=== PATIENT | female | born 1945 | race Caucasian/White ===

== ENCOUNTER → 2016-07-24 | Outpatient (CLI) | payer OTHER ==
[~2016-07-24] MED LIST: ALLERGY10 M2 PO; AMBIEN 10 MG TA10 MG PO; AMLODIPINE BESYL5 MG PO; ANASPAZ0.125 MG SL; ARAVA20 MG PO; ASPIRIN EC325 M1 PO; B-COMPLEX-VITA1 EACH PO; BEE POLLEN580 MG PO; CALCIUM + VITA1 EAC1 PO; CARAFATE 1 GM TA1 GM PO; CARISOPRODOL 3350 MG PO; CIPRO500 MG PO; CLONAZEPAM 0.50.5 M1 PO; DILTIAZEM 24HR240 M1 PO; EFFIENT10 MG PO; FLAGYL500 MG PO; FLAX OIL1000 MG PO; FOLIC ACID1 MG PO; GEMFIBROZIL 60600 MG PO; ICAPS TABLET1 EACH PO; LEVOTHYROXIN0.075 MG PO; LIALDA1.2 GM; LIPITOR80 MG PO; LOPRESSOR 50 MG50 M1 PO; LOVAZA1000 MG PO; MAXZIDE-25 MG1 EACH PO; METHOTREXATE 22.5 M1 PO; NEURONTIN600 MG PO; NEXIUM40 MG PO; NORCO 5-325 TA1 EACH PO; NORVASC 5 MG TAB5 MG PO; OMEPRAZOLE40 MG PO; ONDANSETRON HCL4 M2 PO; PACERONE 200 M200 M1 PO; PERCOCET 5-3251 EACH PO; PERCOCET PO; PREDNISONE 20 M20 M1 PO; PROAIR HFA8.5 GM INH; QUINAPRIL 20 MG20 MG PO; REGLAN 10 MG TA10 M1 PO; TIZANIDINE HCL4 M1 PO; VITAMIN D1000 UNI1 PO; VITCB500GO PO; XARELTO10 M1 PO; XARELTO20 MG PO; ZANTAC 150MG T150 M1 PO; ZETIA10 MG PO; ZOFRAN ODT4 MG PO; ZOLOFT50 MG PO
== END ==
LOC: MRI 09:19
DX: I00 Rheumatic fever without heart involvement (principal); M54.5 Low back pain; M43.8X6 Other specified deforming dorsopathies, lumbar region

== ENCOUNTER → 2016-07-27 | Outpatient (CLI) | payer OTHER | LOC: RAD 16:28 | DX: M85.872 Other specified disorders of bone density and structure, left ankle and foot (principal); M85.871 Other specified disorders of bone density and structure, right ankle and foot; M25.572 Pain in left ankle and joints of left foot; M25.571 Pain in right ankle and joints of right foot ==

== ENCOUNTER → 2016-07-31 | Outpatient (CLI) | payer OTHER ==
[~2016-07-31] VITALS: Ht 162.6 cm; Wt 67.1 kg
--- NOTE | ~2016-07-31 | HPC ---
[facility] [address] [place] [address] PAIN MANAGEMENT CONSULTATION Name: PETER PICKETT [id number] Admission: 07/31/16 Attend Phys: Jose Borrego DO Discharge: Date of : 43 Report #: [id number] THIS REPORT FOR: //name// CC: Young Borrego The patient is a 71-year-old female seen in consultation at request of Dr. Bolton for evaluation of pain, low back, right buttock and ankle. The patient notes subjective weakness, but no specific bowel or bladder incontinence changes or saddle anesthesia is noted. She does incidentally notes she has some stool leakage, which has been going for over 6 months, but notes no saddle anesthesia. She has tried chiropractic manipulation with minimal efficacy. She notes the pain seems to be worse with weather changes and walking. She describes continuous, shooting pain that she rates at 9 on a 0-10 visual analog scale. Incidentally, she is wearing a walking boot secondary to a right toe fracture. REVIEW OF SYSTEMS: Complete review of systems attached to chart and gone over with the patient. She is , does not smoke or drink alcohol to excess. History of asthma for which she uses ProAir, hypertension treated with amlodipine, atrial fibrillation on Xarelto and quinapril, omeprazole for gastroesophageal reflux, Zoloft for some chronic anxiety, gemfibrozil for dyslipidemia. Being treated for rheumatoid arthritis by Dr. Bolton, currently on methotrexate, tizanidine, Percocet for pain, leflunomide, Soma and clonazepam. 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 She notes pain impact score is about 5-6 on a 0-10 visual analog scale. PHYSICAL EXAMINATION: GENERAL: Reveals a 5 feet 4 inches, 148 pounds female, BMI is 25.4 kilograms per meter squared. Blood pressure 157/80, pulse 60, respirations are 20. NEUROLOGIC: Cranial 2-12 are grossly intact. HEENT: Pupils equal, reactive to light and accommodation. Extraocular muscles are intact. NECK: Cervical range of motion is full. HEART: Regular and rhythmical at this time though she does have a history of atrial fibrillation, I can detect no dysrhythmia. She does have a slight systolic ejection murmur (1-2/6) . LUNGS: Clear to auscultation. MUSCULOSKELETAL: Upper extremity strength is generally symmetric. She has a moderately antalgic gait, again she is wearing a walking boot secondary to right foot fracture. Tender in the low back with the SI area. Positive straight leg raise at 30 degrees on the right. Patellar and Achilles reflexes are generally preserved, slight decreased right hip flexion strength. Passive rotation of hip is unremarkable. A little positive Jean Pierre test, right greater than left. DIAGNOSTIC STUDIES: Include MRI of the lumbar spine from 07/24/2016 noting slight mir convex curvature with the disk bulging seen at L3-L4 through L5-S1, biggest narrowing at L3-L4. ASSESSMENT: Symptomatic lumbar radiculopathy with component of sacroiliac joint [address] [address] PAIN MANAGEMENT CONSULTATION Name: PETER PICKETT Room #: REG CL Diane#: [id number] Admission: 07/31/16 Attend Phys: Jose Borrego DO Discharge: Date of : 43 Report #: [id number] dysfunction in a patient with history of atrial fibrillation, currently anticoagulated with Xarelto. RECOMMENDATIONS: Discussion with the patient today about therapeutic option. We have elected to move forward with lumbar epidural injection under fluoroscopy off Xarelto for 3 days (will plan on seeing the patient this Wednesday. If this does not afford adequate relief we can address the SI mediated pain component as well. Thanks for allowing me to participate in the patient's care. I will keep you abreast of her progress. <ELECTRONICALLY SIGNED> By: Jose Borrego DO 08/03/16 1228 1610 0300 Jose Borrego DO /nt
[2016-07-31 10:21] VITALS: BP 157/80
== END | disposition home or self-care (01) ==
LOC: PAIN 06:53
DX: M54.16 Radiculopathy, lumbar region (principal); M53.3 Sacrococcygeal disorders, not elsewhere classified; I48.91 Unspecified atrial fibrillation; J45.909 Unspecified asthma, uncomplicated; I10 Essential (primary) hypertension; K21.9 Gastro-esophageal reflux disease without esophagitis; F41.9 Anxiety disorder, unspecified; E78.5 Hyperlipidemia, unspecified; M06.9 Rheumatoid arthritis, unspecified

== ENCOUNTER → 2016-08-03 | Outpatient (CLI) | payer OTHER ==
[~2016-08-03] VITALS: Ht 162.6 cm; Wt 74.4 kg
--- NOTE | ~2016-08-03 | HPC ---
[facility] [place] [address] PAIN MANAGEMENT CONSULTATION Name: PETER PICKETT Room #: REG [facility] [id number] Admission: 08/03/16 Attend Phys: Jose Borrego DO Discharge: Date of : 43 Report #: [id number] THIS REPORT FOR: //name// CC: Young Borrego The patient is a pleasant 71-year-old female, seen on 07/31/2016 in consultation, diagnosed with symptomatic lumbar radiculopathy. Comorbidities include atrial fibrillation for which she takes Xarelto. We elected to proceed with epidural injection under fluoroscopy today, 3 days off Xarelto. She returns to pain clinic today pain remains problematic in low back, buttock, and down her leg. Pain score and vital signs are on the EMR. The patient has been off her Xarelto for 3 days. ASSESSMENT: Symptomatic lumbar radiculopathy. PROCEDURE: Lumbar epidural injection under fluoroscopy. DESCRIPTION OF PROCEDURE: After both written and informed consent to include risk of spinal cord damage, increased pain, weakness and dural puncture, the patient was taken to the fluoroscopy suite, placed in the prone position. After sterile prep and drape, a skin wheal with lidocaine was raised. A 22-gauge epidural Tuohy needle was inserted in the midline at L4-L5 with good loss to resistance. Negative aspiration for cerebrospinal fluid or blood was noted. Then 1 mL of Omnipaque under biplanar fluoroscopy showed good spread within the epidural space. This was followed with 80 mg of triamcinolone plus 1 mL of 1.5% preservative-free Xylocaine, 0.5 mL Xylocaine was then injected to flush the needle; it was removed. The patient was monitored for an appropriate period of time and discharged in good and stable condition. The patient was told to resume Xarelto tonight and follow up in 3 weeks for reevaluation. If at day #18, she notes incremental improvement greater than 50%, but still has ongoing radicular symptoms, we will have her discontinue Xarelto and plan on repeating injection at next visit. <ELECTRONICALLY SIGNED> By: Jose Borrego DO 08/07/16 0811 1217 04 Jose Borrego DO /nt
[2016-08-03 11:33] VITALS: BP 174/62
== END | disposition home or self-care (01) ==
LOC: PAIN 07:05
DX: M54.16 Radiculopathy, lumbar region (principal); I48.91 Unspecified atrial fibrillation

== ENCOUNTER → 2016-09-14 | Outpatient (CLI) | payer OTHER ==
[~2016-09-14] VITALS: Ht 162.6 cm; Wt 74.5 kg
--- NOTE | ~2016-09-14 | HPC ---
[facility] [place] [address] PAIN MANAGEMENT CONSULTATION Name: PETER PICKETT [facility] #: [facility] [id number] Admission: 09/14/16 Attend Phys: Jose Borrego DO Discharge: Date of : 43 Report #: [id number] THIS REPORT FOR: //name// CC: Young Borrego The patient is a very pleasant 71-year-old female last seen in pain clinic 08/24/2015. We did #2 epidural injection for ongoing lumbar radicular pain. She is off her Xarelto today noting about 80% improvement of her back pain, still has a little right lumbar radicular pain within L5 pattern. After discussion, we have elected to proceed with epidural injection under fluoroscopy today, resume Xarelto tonight and follow up simply as needed. ASSESSMENT: Symptomatic lumbar radiculopathy. PROCEDURE: Lumbar epidural injection under fluoroscopy. PROCEDURE NOTE: After both written and informed consent to include risk of spinal cord damage, increased pain, weakness and dural puncture, the patient was taken to the fluoroscopy suite, placed in the prone position. After sterile prep and drape, a skin wheal with lidocaine was raised. A 22-gauge epidural Tuohy needle was inserted in the midline at L5-S1 with good loss to resistance. Negative aspiration for cerebrospinal fluid or blood was noted. Then 1 mL of Omnipaque under biplanar fluoroscopy showed good spread within the epidural space. This was followed with 80 mg of triamcinolone plus 1 mL of 1.5% preservative-free Xylocaine, 0.5 mL Xylocaine was then injected to flush the needle; it was removed. The patient was monitored for an appropriate period of time and discharged in good and stable condition. <ELECTRONICALLY SIGNED> By: Jose Borrego DO 09/16/16 0802 1221 1245 Jose Borrego DO /nt
[2016-09-14 10:58] VITALS: BP 154/66
== END ==
LOC: PAIN 07:00
DX: M54.16 Radiculopathy, lumbar region (principal); I10 Essential (primary) hypertension; M06.9 Rheumatoid arthritis, unspecified; S82.402A Unspecified fracture of shaft of left fibula, initial encounter for closed fracture

== ENCOUNTER → 2016-10-05 | Outpatient (CLI) | payer OTHER ==
[~2016-10-05] VITALS: Ht 162.6 cm; Wt 74.8 kg
--- NOTE | ~2016-10-05 | HPC ---
[facility] [address] [place] [address] PAIN MANAGEMENT CONSULTATION Name: PETER PICKETT Room #: REG [facility].#: [id number] Admission: 10/05/16 Attend Phys: Jose Borrego DO Discharge: Date of : 43 Report #: [id number] THIS REPORT FOR: //name// CC: Young Borrego The patient is a 71-year-old female treated for symptomatic lumbar radiculopathy, she has had 3 epidural injections August 03, August 24 and September 14 with significant improvement of lumbar radicular pain. She notes near 100% overall improvement, but she is having some increasing pain in the right low back. Does note a family history of osteoporosis. We talked about concern for using further steroid injections. She notes ongoing relief of the radicular pain, but this more mid back and right SI pain remains more problematic. She states the pain is 2/10 at present, but it is intermittent, sharp exacerbations of the pain are up to 8-9 on a 0-10 visual analog scale. Seems to recur "spontaneously." She incidentally also notes she is having some exacerbation of her chronic vertigo. She did fall this morning secondary to same. PHYSICAL EXAMINATION: Shows 71-year-old female, BMI is 28.3 kilograms per meter squared. Vital signs stable as noted in the EMR. Rises from chair using armrest. Does have some ataxia, loses balance with her eyes closed, though there is no lateral gaze nystagmus. Tender in the right SI with positive Jean Pierre test, tender little bit in the right lumbar facets as well. ASSESSMENT: Symptomatic right sacroiliac joint dysfunction by clinical exam, component of lumbar spondylosis in a patient with prior history of lumbar radiculopathy, the latter symptoms relatively well controlled, ongoing. History of vertigo, chronic with acute exacerbation. RECOMMENDATION: After a long discussion with the patient today, we have elected to move forward with a referral to physical therapy for core strengthening exercises to include SI stabilization. Also, will ask physical therapy to evaluate for Palma maneuver to help with vertigo. I will see the patient back in 4 weeks for reevaluation. We may consider SI joint injection if clinically indicated, but would like to avoid exposing further steroid for as long as possible. By: [id number] Jose Borrego DO /nt
[2016-10-05 12:44] VITALS: BP 152/75
== END ==
LOC: PAIN 06:36
DX: M47.26 Other spondylosis with radiculopathy, lumbar region (principal); Z82.62 Family history of osteoporosis; M53.3 Sacrococcygeal disorders, not elsewhere classified; I10 Essential (primary) hypertension

== ENCOUNTER → 2016-12-21 | Outpatient (CLI) | payer OTHER ==
[~2016-12-21] VITALS: Ht 162.6 cm; Wt 73.8 kg
--- NOTE | ~2016-12-21 | HPC ---
[facility] [address] [place] [address] PAIN MANAGEMENT CONSULTATION Name: PETER PICKETT Room #: REG [facility]#: [id number] Admission: 12/21/16 Attend Phys: Jose Borrego DO Discharge: Date of : 43 Report #: [id number] THIS REPORT FOR: //name// CC: Young Borrego DATE OF SERVICE: 12/21/2016 The patient is a pleasant 71-year-old female last seen in pain clinic back in October. She had a series of epidural injections in July with good overall improvement of radicular pain. Last visit, we talked about an SI joint injection if indicated, sent her to physical therapy for both vertigo (Palma maneuver) and core strengthening for SI joint. Returns to pain clinic today noting that vertigo has completely gone after the Palma maneuvers and she has been doing core strengthening exercises and the SI mediated pain is a little better. Has recurrence of right L5-S1 radicular pain, posterior aspect of buttock down to the leg. She had had several months of relief with prior epidural injections. 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 PHYSICAL EXAMINATION: Shows pleasant 71-year-old female, BMI is 27.9 kilograms per meter squared. Blood pressure is nominally elevated at 151/69, pulse 68, respirations 20. Alert and oriented to person, place and time, judged to be a reasonable historian. There is no nystagmus noted. Upper extremity strength is generally preserved. She is tender over the left first metacarpocarpal joint though there is no fluid noted here. Wrist range of motion is good. Rises from chair using armrest. Gait is antalgic. Pain in the low back, right buttock and leg. Positive straight leg raise on the right. ASSESSMENT: 1. Vertigo, improved following Palma maneuver. 2. Sacroiliac joint dysfunction, primarily improved with physical therapy. 3. The left hand, degenerative joint disease, primarily affecting #1 carpometacarpal joint. RECOMMENDATIONS: We will trial Voltaren gel topically, the patient was given contact information for Dr. Adilia Louise if this does not afford adequate relief. Given exacerbation of lumbar radiculopathy recommendation the patient has been off will proceed with epidural injection under fluoroscopy today without benefit of iodine due to CONTRAST allergy. Resume Eliquis tonight and follow up in 1 month for reevaluation. PROCEDURE: Lumbar epidural injection under fluoroscopy. [address] [address] PAIN MANAGEMENT CONSULTATION Name: PETER PICKETT Room #: REG [facility] Diane#: [id number] Admission: 12/21/16 Attend Phys: Jose Borrego DO Discharge: Date of : 43 Report #: [id number] PROCEDURE NOTE: After both written and informed consent to include risk of spinal cord damage, increased pain, weakness and dural puncture, the patient was taken to the fluoroscopy suite, placed in the prone position. After sterile prep and drape, a skin wheal with lidocaine was raised. A 22-gauge epidural Tuohy needle was inserted in the midline at L5-S1 with good loss to resistance. Negative aspiration for cerebrospinal fluid or blood was noted. Then 1 mL of Omnipaque under biplanar fluoroscopy showed good spread within the epidural space. This was followed with 80 mg of triamcinolone plus 1 mL of 1.5% preservative-free Xylocaine, 0.5 mL Xylocaine was then injected to flush the needle; it was removed. The patient was monitored for an appropriate period of time and discharged in good and stable condition. By: 1042 1337 Jose Borrego DO /nt
[2016-12-21 10:15] VITALS: BP 151/69
== END ==
LOC: PAIN 06:50
DX: M53.3 Sacrococcygeal disorders, not elsewhere classified (principal); M18.9 Osteoarthritis of first carpometacarpal joint, unspecified; I10 Essential (primary) hypertension

== ENCOUNTER 2017-03-31 13:45 | Observation (INO) | payer OTHER ==
[~2017-03-31] VITALS: Ht 164 cm; Wt 75.5 kg
--- NOTE | ~2017-03-31 | EKG ---
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
--- NOTE | ~2017-03-31 | EKG ---
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
[2017-03-31 13:55] VITALS: BP 156/58
[2017-03-31 14:07] LABS: HEMATOCRIT 32.6 % (37.0-47.0); HEMOGLOBIN 10.7 gm/dL (12.0-15.0); MCH 29.2 pg (26.0-34.0); MCHC 32.7 g/dL (28.0-37.0); MCV 89.5 fL (80.0-100.0); PLATELET COUNT 213 thou/uL (150-400); RBC 3.65 mil/uL (4.20-5.00); RDW 14.5 % (10.5-14.5); WBC 14.2 thou/uL (4.0-11.0)
[2017-03-31 14:10] LABS: MANUAL DIFF YES
[2017-03-31 14:17] LABS: ANION GAP 12 mmol/L (7-16); BUN 8 mg/dL (7-18); CALCIUM 8.4 mg/dL (8.5-10.1); CHLORIDE 102 mmol/L (98-107); CO2 21 mmol/L (21-32); CREATININE 0.8 mg/dL (0.6-1.0); GLUCOSE 131 mg/dL (74-106); POTASSIUM 3.5 mmol/L (3.5-5.1); SODIUM 135 mmol/L (136-145)
[2017-03-31 14:24] LABS: TROPONIN-I < 0.04 ng/mL (<0.04-0.07)
[2017-03-31 14:36] LABS: ABSOLUTE NEUTROPHILS 11.8 thou/uL (1.4-8.2); TOTAL CELL COUNT 100
[2017-03-31 14:41] LABS: ANISOCYTOSIS 1+; MICROCYTES SLIGHT; SCHISTOCYTES FEW
[2017-03-31 14:42] LABS: ALBUMIN 3.2 g/dL (3.4-5.0); ALKALINE PHOSPHATASE 77 U/L (46-116); DIRECT BILIRUBIN < 0.1 mg/dL (<0.1-0.3); POLYCHROMASIA SLIGHT; SGOT 16 U/L (15-37); SGPT 21 U/L (30-65); TOTAL BILIRUBIN 0.3 mg/dL (<0.1-1.0); TOTAL PROTEIN 6.5 g/dL (6.4-8.2)
[2017-03-31 15:05] LABS: APTT 34.1 Seconds (24.5-32.8); PROTIME 10.6 Seconds (9.3-11.4)
[2017-03-31 15:43] VITALS: BP 128/49
[2017-03-31 16:41] VITALS: BP 138/84
[2017-03-31 18:52] VITALS: BP 159/67
[2017-03-31 19:59] VITALS: BP 106/52
[2017-04-01 03:56] VITALS: BP 135/59
[2017-04-01 03:58] LABS: ALBUMIN 2.7 g/dL (3.4-5.0); ANION GAP 9 mmol/L (7-16); BUN 8 mg/dL (7-18); CALCIUM 8.2 mg/dL (8.5-10.1); CHLORIDE 102 mmol/L (98-107); CO2 26 mmol/L (21-32); CREATININE 0.5 mg/dL (0.6-1.0); GLUCOSE 98 mg/dL (74-106); PHOSPHORUS 2.6 mg/dL (2.5-4.9); POTASSIUM 3.2 mmol/L (3.5-5.1); SODIUM 137 mmol/L (136-145); TROPONIN-I < 0.04 ng/mL (<0.04-0.07)
[2017-04-01 08:20] VITALS: BP 150/60
[2017-04-01 17:56] VITALS: BP 150/60
== END 2017-04-01 18:04 | disposition home or self-care (01) ==
LOC: ER 13:45 → EROBS 14:54 → 2N 16:35
PROVIDERS: Emergency Medicine; Hospitalist
DX: R07.2 Precordial pain (principal); I48.91 Unspecified atrial fibrillation; R11.2 Nausea with vomiting, unspecified; R61 Generalized hyperhidrosis; M79.89 Other specified soft tissue disorders

== ENCOUNTER → 2017-11-08 | Outpatient (CLI) | payer OTHER ==
[~2017-11-08] VITALS: Ht 162.6 cm; Wt 72.2 kg
[~2017-11-08] MED LIST changes: +NUCYNTA50 MG PO; +VITAMIN B-12500 MCG PO; +VITAMIN D32000 UNI1 PO
--- NOTE | ~2017-11-08 | HPC ---
[facility] [place] [address] PAIN MANAGEMENT CONSULTATION Name: PETER PICKETT [facility]: [facility] [id number] Admission: 11/08/17 Attend Phys: Jose Borrego DO Discharge: Date of : 43 Report #: [id number] THIS REPORT FOR: //name// CC: Robert Borrego The patient is a 72-year-old female, prior seen in the pain clinic 11/04/2017, diagnosed with symptomatic lumbar radiculopathy, sought authorization for epidural injection under fluoroscopy. The patient returns to pain clinic today with ongoing pain, low back, right leg, posterior aspect of the foot, rating a 9/10, wishing to proceed with epidural injection under fluoroscopy. ASSESSMENT: Symptomatic lumbar radiculopathy. PROCEDURE: Lumbar epidural injection under fluoroscopy. PROCEDURE NOTE: After both written and informed consent to include risk of spinal cord damage, increased pain, weakness and dural puncture, the patient was taken to the fluoroscopy suite, placed in the prone position. After sterile prep and drape, a skin wheal with lidocaine was raised. A 22-gauge epidural Tuohy needle was inserted in the midline at L4/5 with good loss to resistance. Negative aspiration for cerebrospinal fluid or blood was noted. Please note contrast was not used due to IODINE allergy. This was followed with 80 mg of triamcinolone plus 1 mL of 1.5% preservative-free Xylocaine, 0.5 mL Xylocaine was then injected to flush the needle; it was removed. The patient was monitored for an appropriate period of time and discharged in good and stable condition. The patient has been off her Xarelto for 3 days, she was told to resume Xarelto tonight, follow up in 2 weeks for reevaluation. Discharged in good and stable condition noting incremental improvement of baseline pain. <ELECTRONICALLY SIGNED> By: Jose Borrego DO 11/11/17 0701 1142 1315 Jose Borrego DO /nt
[2017-11-08 10:15] VITALS: BP 149/66
== END | disposition home or self-care (01) ==
LOC: PAIN 05:51
DX: M54.16 Radiculopathy, lumbar region (principal); Z88.8 Allergy status to other drugs, medicaments and biological substances

== ENCOUNTER → 2017-12-24 | Outpatient (CLI) | payer OTHER ==
[~2017-12-24] VITALS: Ht 162.6 cm; Wt 73.5 kg
--- NOTE | ~2017-12-24 | HPC ---
[facility] [place] [address] PAIN MANAGEMENT CONSULTATION Name: PETER PICKETT Room #: REG [facility].#: [id number] Admission: 12/24/17 Attend Phys: Jose Borrego DO Discharge: Date of : 43 Report #: [id number] THIS REPORT FOR: //name// CC: Robert Borrego The patient is a very pleasant 72-year-old female. She was given 2 lumbar epidural injections in November with excellent improvement of pain. She was doing well for a period of time. She was visiting her sister and unfortunately stumbled in a dark bathroom. She tripped, landing on her back with acute exacerbation of pain in the right low back. She has been using Tylenol Extra Strength with some efficacy, but still rates the pain a 5 on a VAS. Pain is in the right low back, chronic, sharp, aching, throbbing sensation, exacerbated with sitting, walking, standing and bending. PHYSICAL EXAMINATION: Shows a 72-year-old female, BMI is 27.8 kilograms per meter squared. Blood pressure modestly elevated (see EMR), pulse 68, respiratory rate 16. Modestly antalgic gait. Grossly positive straight leg raise on the right at 30 degrees. Slight decreased right hip flexion and plantar flexion strength compared to the left. The patient has been off her Xarelto since Wednesday. ASSESSMENT: Symptomatic lumbar radiculopathy secondary to spinal stenosis. RECOMMENDATION: Repeat epidural injection under fluoroscopy today, right of midline L5-S1. Resume Xarelto. Follow up simply as needed. PROCEDURE: Lumbar epidural injection under fluoroscopy. PROCEDURE NOTE: After both written and informed consent to include risk of spinal cord damage, increased pain, weakness and dural puncture, the patient was taken to the fluoroscopy suite, placed in the prone position. After sterile prep and drape, a skin wheal with lidocaine was raised. A 22-gauge epidural Tuohy needle was inserted in the midline at L5-S1 with good loss to resistance. Negative aspiration for cerebrospinal fluid or blood was noted. Then 1 mL of Omnipaque under biplanar fluoroscopy showed good spread within the epidural space. This was followed with 80 mg of triamcinolone plus 1 mL of 1.5% preservative-free Xylocaine, 0.5 mL Xylocaine was then injected to flush the needle; it was removed. The patient was monitored for an appropriate period of time and discharged in good and stable condition. <ELECTRONICALLY SIGNED> By: Jose Borrego DO 12/27/17 0710 1124 2039 Jose Borrego DO /nt
[2017-12-24 09:27] VITALS: BP 152/63
== END | disposition home or self-care (01) ==
LOC: PAIN 06:57
DX: M48.061 Spinal stenosis, lumbar region without neurogenic claudication (principal); M54.16 Radiculopathy, lumbar region; G89.29 Other chronic pain; I48.91 Unspecified atrial fibrillation; I25.10 Atherosclerotic heart disease of native coronary artery without angina pectoris; M06.9 Rheumatoid arthritis, unspecified; Z87.440 Personal history of urinary (tract) infections; Z98.890 Other specified postprocedural states; Z87.19 Personal history of other diseases of the digestive system; Z88.2 Allergy status to sulfonamides; Z88.0 Allergy status to penicillin; Z88.8 Allergy status to other drugs, medicaments and biological substances; Z79.899 Other long term (current) drug therapy; Z79.01 Long term (current) use of anticoagulants

== ENCOUNTER → 2018-01-19 | Outpatient (CLI) | payer OTHER | LOC: RAD 14:19 | DX: Z12.31 Encounter for screening mammogram for malignant neoplasm of breast (principal); M54.16 Radiculopathy, lumbar region; E04.1 Nontoxic single thyroid nodule ==

== ENCOUNTER → 2018-01-27 | Outpatient (CLI) | payer OTHER | LOC: ULTRA 10:16 | DX: N63.20 Unspecified lump in the left breast, unspecified quadrant (principal); I48.91 Unspecified atrial fibrillation; Z88.0 Allergy status to penicillin ==

== ENCOUNTER 2018-09-28 05:43 | Day surgery (SDC) | payer OTHER ==
[~2018-09-28] VITALS: Ht 162.6 cm; Wt 59.0 kg
--- NOTE | ~2018-09-28 | O ---
[facility] [place] [address] OPERATIVE REPORT Name: PETER PICKETT Room #: 150-1 [facility] M.R.#: [id number] Admission: 09/28/18 ������������������ Attend Phys: Darrick Echavarria Discharge: ������������������ Date of : 41 Report #: [id number] THIS REPORT FOR: //name// CC: Darrick Loving PREOPERATIVE DIAGNOSES: Right shoulder pain, rotator cuff tear, impingement syndrome, biceps tear. POSTOPERATIVE DIAGNOSIS: Right shoulder rotator cuff tear, large, impingement syndrome, complex labral tear, long head biceps tendon tear and subluxation, glenohumeral joint chondromalacia, subacromial bursitis. PROCEDURE PERFORMED: Right shoulder arthroscopy, rotator cuff repair, subacromial decompression, arthroscopic biceps tenodesis, extensive debridement. SURGEON: Darrick Hatfield M.D. MICROFILM TECHNICIAN: Maddison Montes PA-C. ANESTHESIA: General with preoperative ultrasound-guided interscalene block. FLUIDS: Approximately 1100 mL crystalloid. ESTIMATED BLOOD LOSS: Minimal. DESCRIPTION OF PROCEDURE: After proper identification of the patient and operative site in preoperative holding area, the operative site was signed by myself. Prophylactic antibiotics given. The patient elected to receive an ultrasound-guided block after reviewing the risks, benefits, alternatives and potential complications with Anesthesia. After a satisfactory block, the patient was brought back to the operative suite after induction of satisfactory general anesthesia. The patient was carefully positioned in the left lateral decubitus position. Lino bag and axillary roll were utilized to support the torso. The right shoulder was sterilely prepped and draped in usual manner and placed in 10 pounds of balanced arthroscopic suspension. Posterior portal was established, joint was inflated with an arthroscopic pump set at 40 mmHg. Anterior superior portal was then created using a spinal needle for localization and then an anterior inferior portal. Examination of the glenohumeral joint revealed extensive fraying and tearing of the long head of the biceps tendon. Subluxation on the upper border of the subscapularis was noted, and upper border tear of approximately 1 cm was noted of the subscapularis. Some complex labral fraying and tearing were noted of the more anterior superior quadrant of the labrum. This was carefully debrided. Mild chondral thinning was noted on the humeral head superiorly as well as inferiorly as well as some mild degenerative changes of the superior glenoid. Tendon grasping stitch was placed on the biceps. It was released off the superior labrum. There was also a full [facility] [address] [place] [address] OPERATIVE REPORT Name: PETER PICKETT Room #: 150-1 [facility] M.R.#: [id number] Admission: 09/28/18 ������������������ Attend Phys: Darrick Echavarria Discharge: ������������������ Date of : 41 Report #: [id number] thickness tear of the supraspinatus extending back into the more anterior infraspinatus. Frayed portion of the tendon from the articular side was debrided. At this point, the lesser tuberosity was prepared with combination of hand and motorized instrumentation. A FiberTape was passed in a simple manner through the upper border of the subscapularis and secured with a 4.75 mm SwiveLock anchor which nicely reduced the tendon. This was stable to probing. Arthroscope was introduced in the subacromial space where thickened subacromial bursa was encountered. It was resected with a motorized shaver. There was fraying in the undersurface of the coracoacromial arch. CA ligament was released off the anterolateral acromion, but not resected. Prominence to the acromion was removed with a motorized bur completing the subacromial decompression. There is evidence of a full thickness minimally retracted crescent shaped rotator cuff tear that measured approximately 3.5 cm. Frayed portion of the cuff was debrided. Combination of sharp ring curette and a motorized shaver used to prepare the greater tuberosity through a separate portal off the lateral border of the acromion. Two double loaded 4.75 mm SwiveLock anchors were inserted. Sutures were passed in a horizontal mattress fashion. These were tied with locking sliding knots, backed up with alternating half hitches. A separate more laterally based row of fixation utilizing an additional SwiveLock anchor was created creating a double row construct. This was stable to probing. Lateral portion of the bicipital groove was opened. Biceps tendon was delivered out the anterolateral portal. Whipstitch was applied. Frayed portion of the tendon was debrided. Tendon was shortened. It was then secured to the proximal Arthrex biceps tenodesis button, which had been placed through its predrilled hole, flipped tension against the near cortex and then the tendon was then tied to this. It was stable to probing. Subacromial space thoroughly irrigated with normal saline. Portals closed with simple nylon stitch. Sterile dressing was applied. The patient will be immobilized in a sling and abduction pillow for 6 weeks postoperatively. No external rotation beyond neutral for the first 4 weeks. Qualified assistant at surgery utilized throughout the entire procedure to aid in patient limb positioning, visualization with the arthroscope instrument and suture passage as well as closure and sling application. ��������������������������������������������� ���������������������������������������� By: ��������������������������������������������� 1206 1256 Darrick Hatfield MD /nt
[~2018-09-28 05:43] MED LIST changes: +AMLODIPINE BESY10 MG PO; +HYDROXYCHLOROQ200 M1 PO; +MYRBETRIQ25 MG PO; +SYNTHROID75 MCG PO; +TOPAMAX50 MG PO
[2018-09-28 09:39] LABS: CALCIUM 9.7 mg/dL (8.5-10.1); CREATININE 0.8 mg/dL (0.6-1.0); POTASSIUM 3.2 mmol/L (3.5-5.1)
[2018-09-28 10:17] VITALS: BP 132/44
[2018-09-28 13:03] VITALS: BP 132/44
== END 2018-09-28 13:55 | disposition home or self-care (01) ==
LOC: TBA 05:43 → OR 05:43
PROVIDERS: Orthopaedic Surgery Sports Medicine
DX: M75.101 Unspecified rotator cuff tear or rupture of right shoulder, not specified as traumatic (principal); M75.41 Impingement syndrome of right shoulder; S46.111A Strain of muscle, fascia and tendon of long head of biceps, right arm, initial encounter; S43.401A Unspecified sprain of right shoulder joint, initial encounter; M94.211 Chondromalacia, right shoulder; M75.51 Bursitis of right shoulder; I10 Essential (primary) hypertension; E78.5 Hyperlipidemia, unspecified; I48.91 Unspecified atrial fibrillation; I25.10 Atherosclerotic heart disease of native coronary artery without angina pectoris; M06.9 Rheumatoid arthritis, unspecified; E03.9 Hypothyroidism, unspecified; F32.9 Major depressive disorder, single episode, unspecified; F41.9 Anxiety disorder, unspecified; K21.9 Gastro-esophageal reflux disease without esophagitis; G89.29 Other chronic pain; Z79.01 Long term (current) use of anticoagulants; Z88.0 Allergy status to penicillin; Z88.2 Allergy status to sulfonamides; Z91.041 Radiographic dye allergy status; Z90.710 Acquired absence of both cervix and uterus; Z95.5 Presence of coronary angioplasty implant and graft; Z88.6 Allergy status to analgesic agent; Z79.899 Other long term (current) drug therapy; Z98.890 Other specified postprocedural states; Z88.8 Allergy status to other drugs, medicaments and biological substances; Z87.891 Personal history of nicotine dependence; X58.XXXA Exposure to other specified factors, initial encounter; Y93.89 Activity, other specified; Y92.89 Other specified places as the place of occurrence of the external cause; Y99.8 Other external cause status
CPT/HCPCS: 50010; 50101; 50172; 50386; 50417; 50597; 50935; 50950; 51038; 51320; 51445; 51847; 52001; 52313; 53610; 54170; 55430; 56527; 56530; 57103; 62110; 62900; 64039; 70005

== ENCOUNTER → 2019-02-17 | Outpatient (CLI) | payer OTHER | LOC: RAD 04:15 | DX: Z12.31 Encounter for screening mammogram for malignant neoplasm of breast (principal) ==

== ENCOUNTER 2019-06-23 13:20 | Emergency (ER) | payer OTHER ==
[~2019-06-23] VITALS: Ht 162.6 cm; Wt 52.2 kg
[2019-06-23 14:00] LABS: ABSOLUTE NEUTROPHILS 5.9 thou/uL (1.4-8.2); EOSINOPHILS 0.9 % (0.0-3.0); HEMATOCRIT 31.9 % (37.0-47.0); HEMOGLOBIN 10.4 gm/dL (12.0-15.0); LYMPHOCYTES 10.9 % (24.0-44.0); MCH 29.7 pg (26.0-34.0); MCHC 32.7 g/dL (28.0-37.0); MCV 90.9 fL (80.0-100.0); MONOCYTES 10.8 % (1.0-8.0); PLATELET COUNT 156 thou/uL (150-400); POLYS 76.4 % (36.0-66.0); RBC 3.51 mil/uL (4.20-5.00); RDW 14.5 % (10.5-14.5); WBC 7.8 thou/uL (4.0-11.0)
[2019-06-23 14:18] LABS: ANION GAP 15 mmol/L (7-16); BUN 10 mg/dL (7-18); CALCIUM 9.6 mg/dL (8.5-10.1); CHLORIDE 106 mmol/L (98-107); CO2 18 mmol/L (21-32); CREATININE 0.9 mg/dL (0.6-1.0); GLUCOSE 82 mg/dL (74-106); POTASSIUM 3.8 mmol/L (3.5-5.1); SODIUM 139 mmol/L (136-145)
[2019-06-23 14:23] LABS: ALBUMIN 3.8 g/dL (3.4-5.0); LIPASE 89 U/L (73-393); SGOT 13 U/L (15-37); SGPT 23 U/L (30-65); TOTAL BILIRUBIN 0.4 mg/dL (<0.1-1.0); TROPONIN-I <0.06 ng/mL (<0.06)
[2019-06-23] MEDS ORDERED: POTASSIUM CHLO20 ME2 PO (14:53)
[2019-06-23 15:08] LABS: URINE BILIRUBIN NEGATIVE (Negative); URINE BLOOD NEGATIVE (Negative); URINE CLARITY CLEAR; URINE COLOR YELLOW; URINE GLUCOSE-RANDOM* NEGATIVE (Negative); URINE KETONES NEGATIVE (Negative); URINE PROTEIN (DIPSTICK) NEGATIVE (Negative); URINE UROBILINOGEN 0.2 E.U./dl (0.2-1.0)
[2019-06-23 15:10] LABS: URINE LEUKOCYTES-REFLEX 1+ (Negative); URINE NITRITE-REFLEX POSITIVE (Negative)
[2019-06-23 15:15] LABS: SQUAMOUS 0-3 Few /LPF (0-3); URINE WBC-REFLEX 6-15 Few /HPF (0-5)
[2019-06-23 15:16] LABS: BACTERIA-REFLEX >30 Many /HPF (None Seen); CASTS None Seen /LPF (None Seen); CRYSTALS None Seen /LPF (None Seen); URINE RBC None Seen /HPF (0-2)
[2019-06-23] MEDS ORDERED: MACROBID 100 M100 MG PO ×2 (15:31→16:00)
[2019-06-23 15:45] VITALS: BP 153/53
--- NOTE | 2019-06-26 15:53 | EKG ---
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 : 1945 Requested By: Star Zepeda Order Number: [id number] MD: Dwaine Metz Measurements Intervals [place] Rate: 60 P: [place]: 166 QRS: -8 QRSD: 99 T: 16 QT: 566 QTc: 566 Interpretive Statements Atrial-paced complexes Abnormal R-wave progression, early transition Compared to ECG 04/01/2017 09:42:53 Sinus rhythm no longer present T-wave abnormality no longer present Electronically Signed On 06-26-2019 15:53:14 BOTTOM STAINER by Dwaine Metz [email or web address] <ELECTRONICALLY SIGNED> By: Dwaine Metz MD 06/26/19 1553 1341 40 Dwaine Metz MD /AIDAN
== END 2019-06-23 16:00 | disposition home or self-care (01) ==
LOC: ER 13:20
PROVIDERS: Emergency Medicine
DX: N39.0 Urinary tract infection, site not specified (principal); R06.4 Hyperventilation; I10 Essential (primary) hypertension; I48.91 Unspecified atrial fibrillation; E78.5 Hyperlipidemia, unspecified; E03.9 Hypothyroidism, unspecified; K21.9 Gastro-esophageal reflux disease without esophagitis; M06.9 Rheumatoid arthritis, unspecified; F41.9 Anxiety disorder, unspecified; F32.9 Major depressive disorder, single episode, unspecified; Z90.710 Acquired absence of both cervix and uterus; Z95.5 Presence of coronary angioplasty implant and graft; Z91.041 Radiographic dye allergy status; Z87.891 Personal history of nicotine dependence; Z88.0 Allergy status to penicillin; Z88.1 Allergy status to other antibiotic agents; Z88.2 Allergy status to sulfonamides; Z88.8 Allergy status to other drugs, medicaments and biological substances

== ENCOUNTER → 2019-11-01 | Outpatient (CLI) | payer OTHER ==
[~2019-11-01] MED LIST changes: +MACROBID 100 M100 MG PO; +POTASSIUM CHLO20 ME2 PO
== END ==
LOC: SJCVC 13:17
DX: R94.31 Abnormal electrocardiogram [ECG] [EKG] (principal); I25.10 Atherosclerotic heart disease of native coronary artery without angina pectoris; I47.2 Ventricular tachycardia; I48.0 Paroxysmal atrial fibrillation; I10 Essential (primary) hypertension; E78.5 Hyperlipidemia, unspecified; J43.2 Centrilobular emphysema; I73.00 Raynaud's syndrome without gangrene; E78.00 Pure hypercholesterolemia, unspecified; M06.9 Rheumatoid arthritis, unspecified; Z79.01 Long term (current) use of anticoagulants; Z79.899 Other long term (current) drug therapy; Z87.891 Personal history of nicotine dependence; Z82.49 Family history of ischemic heart disease and other diseases of the circulatory system

== ENCOUNTER → 2019-12-28 | Outpatient (CLI) | payer OTHER | LOC: SJCVC 11:22 | PROVIDERS: ATTEND Internal Medicine | DX: I49.1 Atrial premature depolarization (principal); R94.31 Abnormal electrocardiogram [ECG] [EKG]; I25.10 Atherosclerotic heart disease of native coronary artery without angina pectoris; I47.2 Ventricular tachycardia; I48.0 Paroxysmal atrial fibrillation; I10 Essential (primary) hypertension; E78.5 Hyperlipidemia, unspecified; J43.2 Centrilobular emphysema; I73.00 Raynaud's syndrome without gangrene; M06.9 Rheumatoid arthritis, unspecified; Z82.49 Family history of ischemic heart disease and other diseases of the circulatory system; Z79.01 Long term (current) use of anticoagulants; Z87.891 Personal history of nicotine dependence; Z79.899 Other long term (current) drug therapy ==

== ENCOUNTER → 2020-02-21 | Outpatient (CLI) | payer OTHER, MEDICARE | LOC: RAD 12:45 | PROVIDERS: ATTEND Family Medicine | DX: Z12.31 Encounter for screening mammogram for malignant neoplasm of breast (principal) ==

== ENCOUNTER → 2020-03-19 | Outpatient (CLI) | payer OTHER, MEDICARE ==
[~2020-03-19] MED LIST changes: +DILTIAZEM ER180 M2 PO; +LISINOPRIL-HCT1 EAC2 PO
== END ==
LOC: SJCVC 11:32
PROVIDERS: ATTEND Internal Medicine Cardiovascular Disease
DX: I48.0 Paroxysmal atrial fibrillation (principal); R94.31 Abnormal electrocardiogram [ECG] [EKG]; I49.01 Ventricular fibrillation; I25.10 Atherosclerotic heart disease of native coronary artery without angina pectoris; J43.2 Centrilobular emphysema; I48.3 Typical atrial flutter; Z79.899 Other long term (current) drug therapy; Z87.891 Personal history of nicotine dependence; Z95.810 Presence of automatic (implantable) cardiac defibrillator

== ENCOUNTER → 2020-04-05 | Outpatient (CLI) | payer OTHER, MEDICARE ==
[~2020-04-05] MED LIST changes: +MAG6464 MG PO; +TOPAMAX100 MG PO
== END ==
LOC: LAB 13:18
PROVIDERS: ATTEND Internal Medicine Cardiovascular Disease
DX: Z01.812 Encounter for preprocedural laboratory examination (principal); Z20.828 Contact with and (suspected) exposure to other viral communicable diseases

== ENCOUNTER → 2020-04-05 | Outpatient (CLI) | payer OTHER, MEDICARE ==
[2020-04-05 09:34] LABS: HEMATOCRIT 31.7 % (37.0-47.0); HEMOGLOBIN 10.3 gm/dL (12.0-15.0); MCH 30.6 pg (26.0-34.0); MCHC 32.4 g/dL (28.0-37.0); MCV 94.2 fL (80.0-100.0); PLATELET COUNT 202 thou/uL (150-400); RBC 3.37 mil/uL (4.20-5.00); RDW 14.8 % (10.5-14.5); WBC 7.3 thou/uL (4.0-11.0)
[2020-04-05 09:50] LABS: ALBUMIN 3.8 g/dL (3.4-5.0); CALCIUM 8.9 mg/dL (8.5-10.1); POTASSIUM 4.1 mmol/L (3.5-5.1); TOTAL BILIRUBIN 0.3 mg/dL (0.2-1.0); TOTAL PROTEIN 7.1 g/dL (6.4-8.2)
--- NOTE | 2020-04-05 10:23 | NUR ---
LATE ENTRY: PT GIVEN SOLUMEDROL 125 MG IV; BENADRYL 25MG IV; AND PEPCID 20MG IV PRIOR TO CT SCAN FOR CONTRAST ALLERGY AT 1010 1011 AND 1012
[2020-04-05 10:30] LABS: ABSOLUTE NEUTROPHILS 5.4 thou/uL (1.4-8.2); ANISOCYTOSIS SLIGHT; ATYPICAL LYMPHS 3 %; MYELOCYTES 1 %
[2020-04-05 10:31] LABS: POIKILOCYTOSIS SLIGHT
== END ==
LOC: CAT 03-26 13:36
PROVIDERS: ATTEND Internal Medicine Cardiovascular Disease
DX: I48.91 Unspecified atrial fibrillation (principal); I25.10 Atherosclerotic heart disease of native coronary artery without angina pectoris
CPT/HCPCS: 95113

== ENCOUNTER → 2020-04-09 | Outpatient (CLI) | payer OTHER, MEDICARE ==
[~2020-04-09] VITALS: Ht 160 cm; Wt 56.7 kg
[~2020-04-09] MED LIST changes: -MAG6464 MG PO; -TOPAMAX100 MG PO
[2020-04-09 07:14] VITALS: BP 115/61
--- NOTE | 2020-04-09 08:45 | TEE ---
[facility] [place] [place] [address] TRANSESOPHAGEAL ECHOCARDIOGRAM Name: PETER PICKETT Room #: REG [facility]#: [id number] Admission: 04/09/20 Attend Phys: Dwaine Metz MD Discharge: Date of : 41 Report #: [id number] THIS REPORT FOR: cc: Robert Loving MD, Rene P. MD Lundgren, Craig H. MD [facility] ~ APPROVED REPORT Study performed: 04/09/2020 07:46:51 EXAM: Transesophageal Echocardiogram Patient Location: Out-Patient Status: routine BSA: 1.55 HR: 60 bpm BP: 115/61 mmHg Rhythm: NSR Other Information Study Quality: Good Indications Atrial Fibrillation Pre-Ablation. Hx: Pacer/Defib Procedure After obtaining informed consent, patient underwent transesophageal echo in the [employer]. Type of Sedation : Conscious Sedation Sedation was administered by BYRON Charlton. Sedation was achieved intravenously with: Versed (4) Fentanyl (100) Propofol () Transesophageal probe was inserted and advanced into esophagus without difficulty by Luis Fletcher MD. Echo enhancement indication: R/O Septal defect. Echo enhancement agent administered: Agitated Saline The BRAYDON was performed without complications. Throughout the procedure, the blood pressure, pulse oximetry, cardiac rhythm, and rate were monitored. The patient tolerated the procedure without adverse effects. Recovery from conscious sedation was uneventful and vital signs were stable. [facility] [address] [address] TRANSESOPHAGEAL ECHOCARDIOGRAM Name: PETER PICKETT Room #: REG [facility]#: [id number] Admission: 04/09/20 Attend Phys: Dwaine [facility] Discharge: Date of : 43 Report #: [id number] Left Ventricle The left ventricle is normal size. There is normal LV segmental wall motion. There is normal left ventricular wall thickness. Left ventricular systolic function is normal. LVEF is 55-60%. Right Ventricle The right ventricle is normal size. The right ventricular systolic function is normal. Atria Left atrium is dilated. No thrombus is visualized in the left atrium or appendage. No shunting noted with contrast bubble injection. Right atrium is dilated. Aortic Valve The aortic valve is mildly sclerotic. No aortic regurgitation is present. There is no aortic valvular stenosis. Mitral Valve The mitral valve is normal in structure. Trace mitral regurgitation. No evidence of mitral valve stenosis. Tricuspid Valve The tricuspid valve is normal in structure. Mild to moderate tricuspid regurgitation. Pulmonic Valve The pulmonary valve is normal in structure. Trace pulmonic regurgitation. Great Vessels The aortic root is normal in size. The ascending aorta is normal in size. IVC is normal in size and collapses >50% with inspiration. Pericardium There is no pericardial effusion. <Conclusion> Left ventricular systolic function is normal. There is normal LV segmental wall motion. LVEF is 55-60%. Both atria are dilated. Pacing wires in right heart No thrombus is visualized in the left atrium or appendage. No shunting noted with contrast bubble injection. The aortic valve is mildly sclerotic. No aortic regurgitation or [facility] [address] [place] [address] TRANSESOPHAGEAL ECHOCARDIOGRAM Name: PETER PICKETT Room #: REG Diane#: [id number] Admission: 04/09/20 Attend Phys: [facility] Dis[facility]: Date of : 43 Report #: [id number] stenosis. The mitral valve is normal in structure. Trace mitral regurgitation. There is no pericardial effusion. <ELECTRONICALLY SIGNED> By: Luis Fletcher MD, [facility] 04/09/2045 4 4 Luis Fletcher MD, FACC /INF
== END ==
LOC: CATH 06:38
PROVIDERS: ATTEND Internal Medicine Cardiovascular Disease
DX: I48.0 Paroxysmal atrial fibrillation (principal); I07.1 Rheumatic tricuspid insufficiency; I49.01 Ventricular fibrillation; I48.3 Typical atrial flutter; I10 Essential (primary) hypertension; E03.9 Hypothyroidism, unspecified; K21.9 Gastro-esophageal reflux disease without esophagitis; E78.5 Hyperlipidemia, unspecified; I25.10 Atherosclerotic heart disease of native coronary artery without angina pectoris; J43.2 Centrilobular emphysema; F32.9 Major depressive disorder, single episode, unspecified; E78.00 Pure hypercholesterolemia, unspecified; M06.9 Rheumatoid arthritis, unspecified; Z90.710 Acquired absence of both cervix and uterus; Z98.890 Other specified postprocedural states; Z79.899 Other long term (current) drug therapy; Z95.810 Presence of automatic (implantable) cardiac defibrillator; Z88.0 Allergy status to penicillin; Z88.2 Allergy status to sulfonamides; Z88.8 Allergy status to other drugs, medicaments and biological substances; Z88.1 Allergy status to other antibiotic agents; Z82.49 Family history of ischemic heart disease and other diseases of the circulatory system; Z83.3 Family history of diabetes mellitus; Z87.891 Personal history of nicotine dependence

== ENCOUNTER 2020-04-10 06:34 | Observation (INO) | payer OTHER, MEDICARE ==
[~2020-04-10] VITALS: Ht 162.6 cm; Wt 59.9 kg
[~2020-04-10 06:34] MED LIST changes: -DILTIAZEM ER180 M2 PO
[2020-04-10 07:24] VITALS: BP 201/74
[2020-04-10] MEDS ORDERED: DILTIAZEM ER180 M2 PO (07:33)
[2020-04-10 07:38] LABS: PROTIME 10.3 Seconds (9.3-11.4)
[2020-04-10] MEDS ORDERED: XARELTO20 MG PO (16:03)
[2020-04-10 18:30] VITALS: BP 170/64
--- NOTE | 2020-04-10 19:35 | NUR ---
ASSUMED CARE AT 1814 POST CARADIAC ABLATION. PT A/OX4 FROM HOME WITH . 6 HOUR BEDREST ENDED AT 183. MILLER REMOVED 1854 WITH TOTAL 700CC. PT ABLE TO URINATE POST MILLER REMOVAL. UP AB RUTH ANN WITH BATHROOM PRIVLEDGES. ELEVATED BP NOTED AND NIGHT RN AWARE.RIGHT GROIN SIGHT C/D/I. DENIES PAIN, DENIES SOB. NSR ON TELE. CALL LIGHT AND PERSONAL ITEMS IN REACH. LIKELY DC TOMORROW.
[2020-04-10 20:50] VITALS: BP 145/63
[2020-04-10 23:55] VITALS: BP 155/68
[2020-04-11 03:30] VITALS: BP 160/70
[2020-04-11 08:15] VITALS: BP 156/77
[2020-04-11 10:00] VITALS: BP 156/77
--- NOTE | 2020-04-11 11:06 | NUR ---
AAOX4. DR. HARDEN HERE, DISCHARGES HER. FROM UNIT BY WC, ACCOMPANIED BY AND VOLUNTEER.
--- NOTE | 2020-04-19 15:54 | P ---
[facility] Juan [address]ña [facility] [place] [address] PROCEDURE REPORT Name: PETER PICKETT Room #: 219-P [facility]..#: [id number] Admission: 04/10/20 Attend Phys: Dwaine Metz MD Discharge: 04/11/20 Date of : 43 Report #: [id number] THIS REPORT FOR: cc: Robert Loving MD, Rene P. MD Couchonnal, Luis F. MD ~ CC: Dwaine Loving PREOPERATIVE DIAGNOSIS: Atrial fibrillation. POSTOPERATIVE DIAGNOSIS: Atrial fibrillation. PROCEDURES PERFORMED: 1. Atrial fibrillation ablation, CPT code 04302. 2. 3D mapping, CPT code 48540. 3. Arterial line placement, CPT code 18309. 4. Intracardiac echo, CPT code 23631. 5. Focal ablation, CPT code 11995. 6. Second pathway ablation, CPT code 51591. 7. Preprocedural ICD reprogramming, CPT code 82201. 8. Post-procedural ICD reprogramming, CPT code 59266. HISTORY: The patient is a 74-year-old female with recurrent atrial fibrillation, here for AFib ablation. ANESTHESIA: The patient underwent general anesthesia with no anesthesia related complications. DESCRIPTION OF PROCEDURE: The patient underwent informed consent. We discussed the details of the procedure including the risks, which include but not limited to bleeding, vascular damage, stroke, [place] as well as cardiac perforation. She understood these risks and is willing to proceed. Prior to initiation of the procedure, ICD therapies were disabled from her defibrillator. I then obtained access to the right femoral vein, placing 8, 9 and 7-Libyan short sheaths using the modified Seldinger technique. I placed a 5-Libyan short sheath into the femoral artery for arterial blood pressure monitoring. Next, under fluoroscopy, I placed a decapolar catheter easily in the coronary sinus and ICE catheter in the right atrium. Using intracardiac ultrasound, she was noted to have 2 left and 3 right-sided pulmonary veins. Next, the patient was systemically heparinized and a transseptal was performed using a Shevlin needle and SL1 sheath. This was straightforward and I exchanged over for the cryo sheath and then created a 3D voltage map of the left atrium. Next, we started isolating the veins using the cryoballoon. The left superior pulmonary vein underwent two 4-minute freezes and the vein isolated during the first freeze at 137 seconds. The left inferior pulmonary vein underwent two [facility] [address] [place] [address] PROCEDURE REPORT Name: PETER PICKETT [facility]P [facility] [id number] Admission: 04/10/20 Attend Phys: Dwaine Metz MD Discharge: 04/11/20 Date of : 43 Report #: [id number] 4-minute freezes, which resulted in isolation. The right superior pulmonary vein underwent two 4-minute freezes resulting in isolation. The right inferior pulmonary vein underwent a 4-minute, followed by 2-minute freeze with evidence of isolation, and the right middle vein underwent a 4-minute freeze. Next, a voltage map was created and there was evidence of isolation of all the pulmonary veins. Of note, while I was performing ablation, the patient went into atrial flutter. This atrial flutter had a proximal to distal activation along the CS with a cycle length of 500 milliseconds. This appeared to be consistent with typical atrial flutter. I attempted to map this on the left side and then she transitioned to another flutter that had atrial flutter cycle length of 530-560 milliseconds and then with further catheter manipulation, she went into an atrial flutter that was 400 milliseconds with a vertical activation along the CS. It appeared the patient had multiple different flutter circuits and this was likely due to her known rheumatoid arthritis with extensive left atrial fibrosis which was noted on her map. I therefore decided to perform a posterior roofline to manage some of these fractionated atrial signals. I performed 3 freezes along the roof anchored from the left superior pulmonary vein and 2 freezes along the roof anchored from the right superior pulmonary vein. A repeat map showed that there was improvement in these signals at this region, but not complete block across the roof. She had multiple different flutter circuits in the left atrium that I could not fully characterize due to their transition, but it did appear that she had a cavotricuspid isthmus dependent flutter. Therefore, we prepped for ablation of this. Using a RAMP sheath and an 8-mm ablation catheter, ablation was performed at 70 swartz 60 degrees at 6 o'clock along the cavotricuspid isthmus. Pre-ablation, the transisthmus conduction time was 100 milliseconds and post-ablation, it was 205 milliseconds. The patient was then in sinus rhythm. As such, the procedure was concluded. Using intracardiac ultrasound, I verified there was no pericardial effusion. The patient received systemic protamine and once her ACT was within acceptable range, catheters and sheaths were pulled and hemostasis was obtained. Post-ablation, I reprogrammed her ICD to reenable therapies. CONCLUSIONS: 1. Successful AFib ablation with isolation of the pulmonary veins. 2. Successful posterior roofline. 3. Successful atrial flutter ablation with bidirectional block. 4. Multiple different atrial flutter circuits that I could not completely characterize given that she transitioned between multiple cycle lengths during mapping. <ELECTRONICALLY SIGNED> By: Dwaine Metz MD 04/19/20 1554 1355 1440 Dwaine Metz MD /nt
== END 2020-04-11 11:18 | disposition home or self-care (01) ==
LOC: CATH 06:34 → 2N 18:28
PROVIDERS: ADMIT Internal Medicine Cardiovascular Disease; ATTEND Internal Medicine Cardiovascular Disease
DX: I48.91 Unspecified atrial fibrillation (principal); I48.92 Unspecified atrial flutter; I25.10 Atherosclerotic heart disease of native coronary artery without angina pectoris; I10 Essential (primary) hypertension; E78.5 Hyperlipidemia, unspecified; M06.9 Rheumatoid arthritis, unspecified; Z79.899 Other long term (current) drug therapy
CPT/HCPCS: 62110; 62900; 70005

== ENCOUNTER → 2020-04-23 | Outpatient (CLI) | payer OTHER, MEDICARE ==
[~2020-04-23] MED LIST changes: +DILTIAZEM ER180 M2 PO; +MAG6464 MG PO; +TOPAMAX100 MG PO
== END ==
LOC: SJCVCIMAG 13:53
PROVIDERS: ATTEND Internal Medicine Cardiovascular Disease
DX: R94.31 Abnormal electrocardiogram [ECG] [EKG] (principal); R10.31 Right lower quadrant pain; R19.03 Right lower quadrant abdominal swelling, mass and lump; I48.0 Paroxysmal atrial fibrillation; I73.9 Peripheral vascular disease, unspecified; Z79.899 Other long term (current) drug therapy; Z87.891 Personal history of nicotine dependence; Z86.79 Personal history of other diseases of the circulatory system

== ENCOUNTER → 2020-04-26 | Outpatient (CLI) | payer OTHER, MEDICARE ==
[~2020-04-26] MED LIST changes: -MAG6464 MG PO; -TOPAMAX100 MG PO
== END ==
LOC: LAB 11:12
PROVIDERS: ATTEND Internal Medicine Cardiovascular Disease
DX: Z01.812 Encounter for preprocedural laboratory examination (principal); Z20.828 Contact with and (suspected) exposure to other viral communicable diseases

== ENCOUNTER → 2020-04-30 | Outpatient (CLI) | payer OTHER, MEDICARE ==
[~2020-04-30] VITALS: Ht 160 cm; Wt 57.6 kg
[~2020-04-30] MED LIST changes: +MAG6464 MG PO; +TOPAMAX100 MG PO
[2020-04-30 07:08] VITALS: BP 172/94
[2020-04-30 07:30] LABS: HEMATOCRIT 31.5 % (37.0-47.0); HEMOGLOBIN 10.1 gm/dL (12.0-15.0); MCH 29.6 pg (26.0-34.0); MCHC 32.2 g/dL (28.0-37.0); MCV 92.1 fL (80.0-100.0); PLATELET COUNT 214 thou/uL (150-400); RBC 3.42 mil/uL (4.20-5.00); RDW 14.5 % (10.5-14.5); WBC 6.1 thou/uL (4.0-11.0)
[2020-04-30 07:44] LABS: CALCIUM 8.9 mg/dL (8.5-10.1); CREATININE 0.9 mg/dL (0.6-1.0); POTASSIUM 3.5 mmol/L (3.5-5.1)
[2020-04-30 07:45] LABS: APTT 33.7 Seconds (24.5-32.8); INR 1.2; PROTIME 12.3 Seconds (9.3-11.4)
[2020-04-30 07:51] LABS: ALBUMIN 3.3 g/dL (3.4-5.0); TOTAL BILIRUBIN 0.2 mg/dL (0.2-1.0); TOTAL PROTEIN 6.9 g/dL (6.4-8.2)
[2020-04-30 09:35] LABS: ABSOLUTE NEUTROPHILS 3.5 thou/uL (1.4-8.2); PLATELET ESTIMATE NORMAL
--- NOTE | 2020-05-03 11:12 | P ---
[facility] [place] [address] PROCEDURE REPORT Name: PETER PICKETT Room #: [facility]#: [id number] Admission: 04/30/20 Attend Phys: Dwaine Metz MD Discharge: Date of : 41 Report #: [id number] THIS REPORT FOR: cc: Robert Loving MD, Rene P. MD Couchonnal, Luis F. MD ~ CC: Dwaine Loving PROCEDURES PERFORMED: 1. DC cardioversion, CPT code 42195. 2. ICD reprogramming, CPT code 83523. PREOPERATIVE DIAGNOSIS: Atypical atrial flutter. POSTOPERATIVE DIAGNOSIS: Atypical atrial flutter. DESCRIPTION OF PROCEDURE: The patient underwent informed consent. She was prepped in a standard fashion. Patches were placed in AP position. Her ICD was interrogated and showed that she was in her atypical atrial flutter. She underwent four 200 joule synchronized cardioversions, which resulted in sinus rhythm for about 3-5 seconds and then she would go right back into her atypical atrial flutter. Her device was reprogrammed back to its original settings. CONCLUSIONS: Unsuccessful DC cardioversion. <ELECTRONICALLY SIGNED> By: Dwaine Metz MD 05/03/20 1112 1011 1447 Dwaine Metz MD /nt
== END | disposition home or self-care (01) ==
LOC: CATH 06:19
PROVIDERS: ATTEND Internal Medicine Cardiovascular Disease
DX: I48.4 Atypical atrial flutter (principal); I25.10 Atherosclerotic heart disease of native coronary artery without angina pectoris; I10 Essential (primary) hypertension; E78.5 Hyperlipidemia, unspecified; M06.9 Rheumatoid arthritis, unspecified; E03.9 Hypothyroidism, unspecified; J43.9 Emphysema, unspecified; F32.9 Major depressive disorder, single episode, unspecified; F41.9 Anxiety disorder, unspecified; K21.9 Gastro-esophageal reflux disease without esophagitis; Z98.890 Other specified postprocedural states; Z79.899 Other long term (current) drug therapy; Z90.710 Acquired absence of both cervix and uterus; Z79.01 Long term (current) use of anticoagulants
CPT/HCPCS: 62110; 62900

== ENCOUNTER 2020-05-20 15:43 | Emergency (ER) | payer OTHER, MEDICARE ==
[~2020-05-20] VITALS: Ht 162.6 cm; Wt 55.3 kg
[2020-05-20] MEDS ORDERED: TRAMADOL 50 MG50 MG PO (16:13)
[2020-05-20] MEDS ORDERED: PROAIR HFA8.5 GM INH (16:13)
[2020-05-20] MEDS ORDERED: ZOLOFT 50 MG TA50 MG PO (16:13)
[2020-05-20] MEDS ORDERED: SPIRONOLACTONE50 MG PO (16:14)
[2020-05-20] MEDS ORDERED: BENICAR40 MG PO (16:14)
[2020-05-20 20:29] LABS: HEMATOCRIT 33.4 % (37.0-47.0); HEMOGLOBIN 10.9 gm/dL (12.0-15.0); MCH 29.8 pg (26.0-34.0); MCHC 32.7 g/dL (28.0-37.0); MCV 91.2 fL (80.0-100.0); PLATELET COUNT 201 thou/uL (150-400); RBC 3.66 mil/uL (4.20-5.00); RDW 15.2 % (10.5-14.5); WBC 8.7 thou/uL (4.0-11.0)
[2020-05-20 20:36] LABS: ANION GAP 13 mmol/L (7-16); BUN 16 mg/dL (7-18); CALCIUM 9.8 mg/dL (8.5-10.1); CHLORIDE 103 mmol/L (98-107); CO2 19 mmol/L (21-32); CREATININE 0.9 mg/dL (0.6-1.0); GLUCOSE 87 mg/dL (74-106); POTASSIUM 3.9 mmol/L (3.5-5.1); SODIUM 135 mmol/L (136-145)
[2020-05-20 20:43] LABS: APTT 24.5 Seconds (24.5-32.8); INR 1.1; PROTIME 10.9 Seconds (9.3-11.4)
[2020-05-20 20:46] LABS: ALBUMIN 3.8 g/dL (3.4-5.0); SGOT 18 U/L (15-37); SGPT 20 U/L (30-65); TOTAL BILIRUBIN 0.3 mg/dL (0.2-1.0); TOTAL PROTEIN 7.6 g/dL (6.4-8.2); TROPONIN-I <0.06 ng/mL (<0.06)
[2020-05-20 21:09] LABS: ABSOLUTE NEUTROPHILS 5.4 thou/uL (1.4-8.2)
[2020-05-20 21:10] LABS: PLATELET ESTIMATE NORMAL
[2020-05-20 22:38] VITALS: BP 177/89
--- NOTE | 2020-05-21 10:01 | EKG ---
[facility] [place] [address] ELECTROCARDIOGRAM REPORT Name: PETER PICKETT Room #: [facility]#: [id number] Admission: 05/20/20 Attend Phys: Discharge: 05/20/20 Date of : 41 Report #: [id number] THIS REPORT FOR: cc: Robert Loving MD, Rene P. 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: Brenda : 1945 Requested By: Margi Frederick Order Number: [id number] MD: Jey Grossman Measurements Intervals [place] Rate: 90 P: 0 [place]: 189 QRS: -18 QRSD: 89 T: QT: 530 QTc: 649 Interpretive Statements Ventricular-paced complexes No further rhythm analysis attempted due to paced rhythm Borderline left axis deviation Borderline repolarization abnormality Prolonged QT interval Baseline wander in lead(s) V3 Compared to ECG 06/23/2019 13:41:39 Atrial-paced complex(es) or rhythm no longer present Electronically Signed On 05-21-2020 10:01:37 EDUCATIONAL INSTITUTION CURATOR by Jey Grossman [email or web address] <ELECTRONICALLY SIGNED> By: Jey Grossman MD, FACC 05/21/20 1001 24 24 eJy Grossman MD, FAC /EPI
== END 2020-05-20 22:39 | disposition home or self-care (01) ==
LOC: ER 15:43
PROVIDERS: Physician Assistant
DX: S70.01XA Contusion of right hip, initial encounter (principal); S00.93XA Contusion of unspecified part of head, initial encounter; I10 Essential (primary) hypertension; I48.91 Unspecified atrial fibrillation; E03.9 Hypothyroidism, unspecified; E78.5 Hyperlipidemia, unspecified; K21.9 Gastro-esophageal reflux disease without esophagitis; Z95.0 Presence of cardiac pacemaker; Z90.710 Acquired absence of both cervix and uterus; Z87.891 Personal history of nicotine dependence; Z79.899 Other long term (current) drug therapy; Z88.0 Allergy status to penicillin; Z88.1 Allergy status to other antibiotic agents; Z88.2 Allergy status to sulfonamides; Z88.8 Allergy status to other drugs, medicaments and biological substances; Z91.041 Radiographic dye allergy status; W18.39XA Other fall on same level, initial encounter; Y93.89 Activity, other specified; Y92.89 Other specified places as the place of occurrence of the external cause; Y99.8 Other external cause status

== ENCOUNTER → 2020-07-18 | Outpatient (CLI) | payer OTHER, MEDICARE ==
[~2020-07-18] MED LIST changes: +BENICAR40 MG PO; +SPIRONOLACTONE50 MG PO; +TRAMADOL 50 MG50 MG PO; +ZOLOFT 50 MG TA50 MG PO
== END ==
LOC: SJCVC 13:45
PROVIDERS: ATTEND Internal Medicine
DX: R94.31 Abnormal electrocardiogram [ECG] [EKG] (principal); I25.10 Atherosclerotic heart disease of native coronary artery without angina pectoris; I47.2 Ventricular tachycardia; I48.0 Paroxysmal atrial fibrillation; I10 Essential (primary) hypertension; E78.5 Hyperlipidemia, unspecified; J43.2 Centrilobular emphysema; I73.00 Raynaud's syndrome without gangrene; E78.00 Pure hypercholesterolemia, unspecified; Z79.01 Long term (current) use of anticoagulants; Z79.899 Other long term (current) drug therapy; Z82.49 Family history of ischemic heart disease and other diseases of the circulatory system; Z87.891 Personal history of nicotine dependence

== ENCOUNTER → 2020-08-30 | Outpatient (CLI) | payer OTHER, MEDICARE ==
[~2020-08-30] VITALS: Ht 160 cm; Wt 57.6 kg
[~2020-08-30] MED LIST changes: +CARTIA XT240 M1 PO
[2020-08-30 09:40] VITALS: BP 145/73
--- NOTE | 2020-08-30 09:46 | NUR ---
Pain Clinic Assessment: 1. History of Osteoarthritis: DENIES History of Rheumatoid Arthritis: YES- PER DR OLIVARES 2. Height: 5 ft. 3 in. 160.0 cm. Weight: 127.0 lb. oz. 57.607 kg. Patient's BMI: 22.5 3. Vital Signs: BP: 145/73 Pulse: 92 Resp: 16 Temp: 02 Sat: 100 ECG Mon: 4. Pain Intensity: 5 5. Fall Risk: Dizziness: N Needs help standing or walking: Y Fallen in the last 3 months: Y Fall risk comments: USES WALKER; FELL IN BATHROOM MAY 2020. WENT TO ER. 6. Patient on Blood Thinner: XARELTO 7. History of Hypertension: N 8. Opioid Therapy greater than 6 weeks: N Opiate Contract Signed: 9. Risk Assessment Tool Provided: 10. Functional Assessment Tool: 11. Recreational Drug Use: Never Drug Type: Tobacco Use: Former Smoker Tobacco Type: Amount or Packs/day: How Many Years: Alcohol Use: No Frequency: Quant:
== END ==
LOC: PAIN 06:58
PROVIDERS: ATTEND Anesthesiology Pain Medicine
DX: M51.16 Intervertebral disc disorders with radiculopathy, lumbar region (principal); M48.061 Spinal stenosis, lumbar region without neurogenic claudication; I48.91 Unspecified atrial fibrillation; G89.29 Other chronic pain; M06.9 Rheumatoid arthritis, unspecified; E03.9 Hypothyroidism, unspecified; I10 Essential (primary) hypertension; F32.9 Major depressive disorder, single episode, unspecified; F41.9 Anxiety disorder, unspecified; Z95.810 Presence of automatic (implantable) cardiac defibrillator; Z79.891 Long term (current) use of opiate analgesic; Z79.899 Other long term (current) drug therapy; Z87.891 Personal history of nicotine dependence

== ENCOUNTER → 2020-10-04 | Outpatient (CLI) | payer OTHER, MEDICARE ==
[~2020-10-04] VITALS: Ht 160 cm; Wt 57.3 kg
[~2020-10-04] MED LIST changes: +PROLIA60 MG/1 ML SUBQ
[2020-10-04 10:29] VITALS: BP 120/59
--- NOTE | 2020-10-04 10:48 | NUR ---
Pain Clinic Assessment: 1. History of Osteoarthritis: PT STATES IN SPINE-DIMITRIS NECK History of Rheumatoid Arthritis: YES- PER DR OLIVARES 2. Height: 5 ft. 3 in. 160.0 cm. Weight: 126.4 lb. oz. 57.335 kg. Patient's BMI: 22.4 3. Vital Signs: BP: 120/59 Pulse: 70 Resp: 16 Temp: 02 Sat: 100 ECG Mon: 4. Pain Intensity: 8 5. Fall Risk: Dizziness: N Needs help standing or walking: Y Fallen in the last 3 months: N Fall risk comments: USES WALKER; FELL IN BATHROOM MAY 2020. WENT TO ER. 6. Patient on Blood Thinner: XARELTO 7. History of Hypertension: N 8. Opioid Therapy greater than 6 weeks: N Opiate Contract Signed: 9. Risk Assessment Tool Provided: LOW-2 10. Functional Assessment Tool: 11. Recreational Drug Use: Never Drug Type: Tobacco Use: Former Smoker Tobacco Type: Amount or Packs/day: How Many Years: Alcohol Use: No Frequency: Quant:
== END | disposition home or self-care (01) ==
LOC: PAIN 06:49
PROVIDERS: ATTEND Anesthesiology Pain Medicine
DX: M51.16 Intervertebral disc disorders with radiculopathy, lumbar region (principal); M48.061 Spinal stenosis, lumbar region without neurogenic claudication; G89.29 Other chronic pain; I10 Essential (primary) hypertension; E78.5 Hyperlipidemia, unspecified; E03.9 Hypothyroidism, unspecified; I48.91 Unspecified atrial fibrillation; J43.9 Emphysema, unspecified; F32.9 Major depressive disorder, single episode, unspecified; F41.9 Anxiety disorder, unspecified; K21.9 Gastro-esophageal reflux disease without esophagitis; M06.9 Rheumatoid arthritis, unspecified; Z98.890 Other specified postprocedural states; Z79.899 Other long term (current) drug therapy; Z95.0 Presence of cardiac pacemaker; Z79.01 Long term (current) use of anticoagulants; Z90.710 Acquired absence of both cervix and uterus

== ENCOUNTER → 2020-10-16 | Outpatient (CLI) | payer OTHER, MEDICARE | LOC: SJCVC 13:46 | PROVIDERS: ATTEND Internal Medicine | DX: R94.31 Abnormal electrocardiogram [ECG] [EKG] (principal); I48.0 Paroxysmal atrial fibrillation; I25.10 Atherosclerotic heart disease of native coronary artery without angina pectoris; I47.2 Ventricular tachycardia; I10 Essential (primary) hypertension; E78.5 Hyperlipidemia, unspecified; J43.2 Centrilobular emphysema; I73.00 Raynaud's syndrome without gangrene; M06.9 Rheumatoid arthritis, unspecified; Z90.49 Acquired absence of other specified parts of digestive tract; Z95.0 Presence of cardiac pacemaker; Z98.890 Other specified postprocedural states; Z79.01 Long term (current) use of anticoagulants; Z79.899 Other long term (current) drug therapy; Z87.891 Personal history of nicotine dependence; Z82.49 Family history of ischemic heart disease and other diseases of the circulatory system; Z88.8 Allergy status to other drugs, medicaments and biological substances ==

== ENCOUNTER → 2020-11-06 | Outpatient (CLI) | payer OTHER, MEDICARE ==
[~2020-11-06] VITALS: Ht 162.6 cm; Wt 55.1 kg
[2020-11-06 12:43] VITALS: BP 110/60
--- NOTE | 2020-11-06 12:50 | NUR ---
Pain Clinic Assessment: 1. History of Osteoarthritis: PT STATES IN SPINE-DIMITRIS NECK History of Rheumatoid Arthritis: YES- PER DR OLIVARES 2. Height: 5 ft. 4 in. 162.6 cm. Weight: 121.4 lb. oz. 55.067 kg. Patient's BMI: 20.8 3. Vital Signs: BP: 110/60 Pulse: 94 Resp: 16 Temp: 02 Sat: 100 ECG Mon: 4. Pain Intensity: 8 5. Fall Risk: Dizziness: N Needs help standing or walking: N Fallen in the last 3 months: N Fall risk comments: USES WALKER; FELL IN BATHROOM MAY 2020. WENT TO ER. 6. Patient on Blood Thinner: XARELTO 7. History of Hypertension: N 8. Opioid Therapy greater than 6 weeks: N Opiate Contract Signed: 9. Risk Assessment Tool Provided: LOW-2 10. Functional Assessment Tool: 11. Recreational Drug Use: Never Drug Type: Tobacco Use: Former Smoker Tobacco Type: Amount or Packs/day: How Many Years: Alcohol Use: No Frequency: Quant:
== END | disposition home or self-care (01) ==
LOC: PAIN 09:14
PROVIDERS: ATTEND Anesthesiology Pain Medicine
DX: M54.16 Radiculopathy, lumbar region (principal); G89.29 Other chronic pain; I10 Essential (primary) hypertension; E78.5 Hyperlipidemia, unspecified; I48.91 Unspecified atrial fibrillation; J43.9 Emphysema, unspecified; E03.9 Hypothyroidism, unspecified; F32.9 Major depressive disorder, single episode, unspecified; F41.9 Anxiety disorder, unspecified; K21.9 Gastro-esophageal reflux disease without esophagitis; M06.9 Rheumatoid arthritis, unspecified; Z98.890 Other specified postprocedural states; Z79.899 Other long term (current) drug therapy; Z79.01 Long term (current) use of anticoagulants; Z95.0 Presence of cardiac pacemaker; Z90.710 Acquired absence of both cervix and uterus

== ENCOUNTER → 2020-12-04 | Outpatient (CLI) | payer OTHER, MEDICARE ==
[~2020-12-04] VITALS: Ht 162.6 cm; Wt 56.7 kg
[2020-12-04 11:07] VITALS: BP 119/57
--- NOTE | 2020-12-04 11:12 | NUR ---
Pain Clinic Assessment: 1. History of Osteoarthritis: PT STATES IN SPINE-DIMITRIS NECK History of Rheumatoid Arthritis: YES- PER DR OLIVARES 2. Height: 5 ft. 4 in. 162.6 cm. Weight: 125.0 lb. oz. 56.700 kg. Patient's BMI: 21.4 3. Vital Signs: BP: 119/57 Pulse: 87 Resp: 18 Temp: 02 Sat: 94 ECG Mon: 4. Pain Intensity: 6 5. Fall Risk: Dizziness: N Needs help standing or walking: N Fallen in the last 3 months: N Fall risk comments: USES WALKER; FELL IN BATHROOM MAY 2020. WENT TO ER. 6. Patient on Blood Thinner: XARELTO 7. History of Hypertension: N 8. Opioid Therapy greater than 6 weeks: N Opiate Contract Signed: 9. Risk Assessment Tool Provided: LOW-2 10. Functional Assessment Tool: 11. Recreational Drug Use: Never Drug Type: Tobacco Use: Former Smoker Tobacco Type: Amount or Packs/day: How Many Years: Alcohol Use: No Frequency: Quant:
== END | disposition home or self-care (01) ==
LOC: PAIN 07:08
PROVIDERS: ATTEND Anesthesiology Pain Medicine
DX: M54.16 Radiculopathy, lumbar region (principal); G89.29 Other chronic pain; I10 Essential (primary) hypertension; I48.91 Unspecified atrial fibrillation; E03.9 Hypothyroidism, unspecified; E78.5 Hyperlipidemia, unspecified; J43.9 Emphysema, unspecified; K21.9 Gastro-esophageal reflux disease without esophagitis; M06.9 Rheumatoid arthritis, unspecified; Z98.890 Other specified postprocedural states; Z79.899 Other long term (current) drug therapy; Z79.01 Long term (current) use of anticoagulants; Z95.0 Presence of cardiac pacemaker; Z87.891 Personal history of nicotine dependence; Z90.710 Acquired absence of both cervix and uterus; Z88.0 Allergy status to penicillin; Z88.2 Allergy status to sulfonamides; Z88.6 Allergy status to analgesic agent; Z88.8 Allergy status to other drugs, medicaments and biological substances

== ENCOUNTER → 2021-03-11 | Outpatient (CLI) | payer OTHER, MEDICARE | LOC: BC 13:00 | PROVIDERS: ATTEND Family Medicine | DX: Z12.31 Encounter for screening mammogram for malignant neoplasm of breast (principal); N64.89 Other specified disorders of breast ==

== ENCOUNTER → 2021-04-30 | Outpatient (CLI) | payer OTHER, MEDICARE | LOC: SJCVC 13:46 | PROVIDERS: ATTEND Internal Medicine | DX: R94.31 Abnormal electrocardiogram [ECG] [EKG] (principal); I48.0 Paroxysmal atrial fibrillation; I25.10 Atherosclerotic heart disease of native coronary artery without angina pectoris; I47.2 Ventricular tachycardia; I10 Essential (primary) hypertension; E78.5 Hyperlipidemia, unspecified; J43.2 Centrilobular emphysema; F32.9 Major depressive disorder, single episode, unspecified; D64.9 Anemia, unspecified; I73.00 Raynaud's syndrome without gangrene; Z95.1 Presence of aortocoronary bypass graft; Z88.0 Allergy status to penicillin; Z82.49 Family history of ischemic heart disease and other diseases of the circulatory system; Z88.1 Allergy status to other antibiotic agents; Z88.8 Allergy status to other drugs, medicaments and biological substances; Z79.01 Long term (current) use of anticoagulants; Z79.899 Other long term (current) drug therapy; Z87.891 Personal history of nicotine dependence ==

== ENCOUNTER 2021-05-06 16:58 | Inpatient (IN) | payer OTHER, MEDICARE ==
[~2021-05-06] VITALS: Ht 160 cm; Wt 62.9 kg
[2021-05-06 17:03] VITALS: BP 106/50
[2021-05-06 17:56] LABS: URINE BILIRUBIN NEGATIVE (Negative); URINE BLOOD 2+ (Negative); URINE CLARITY SL CLOUDY; URINE COLOR YELLOW; URINE GLUCOSE-RANDOM* NEGATIVE (Negative); URINE KETONES 1+ (Negative); URINE NITRITE-REFLEX NEGATIVE (Negative); URINE PROTEIN (DIPSTICK) TRACE (Negative); URINE SPECIFIC GRAVITY 1.025 (1.005-1.035); URINE UROBILINOGEN 0.2 E.U./dl (0.2-1.0)
[2021-05-06 18:13] LABS: HEMOGLOBIN 8.9 gm/dL (12.0-15.0); MCH 28.6 pg (26.0-34.0); MCHC 31.6 g/dL (28.0-37.0); MCV 90.7 fL (80.0-100.0); PLATELET COUNT 219 thou/uL (150-400); RBC 3.09 mil/uL (4.20-5.00); RDW 15.5 % (10.5-14.5); WBC 19.8 thou/uL (4.0-11.0)
[2021-05-06 18:16] LABS: URINE LEUKOCYTES-REFLEX 3+ (Negative)
[2021-05-06 18:29] LABS: ALBUMIN 2.7 g/dL (3.4-5.0); CALCIUM 7.8 mg/dL (8.5-10.1); CREATININE 1.7 mg/dL (0.6-1.0); TOTAL BILIRUBIN 0.4 mg/dL (0.2-1.0)
[2021-05-06 18:33] LABS: POTASSIUM 2.2 mmol/L (3.5-5.1)
[2021-05-06 18:35] LABS: CASTS None Seen /LPF (None Seen); SQUAMOUS 0-3 Few /LPF (0-3)
[2021-05-06 18:36] LABS: BACTERIA-REFLEX >30 Many /HPF (None Seen); CRYSTALS None Seen /LPF (None Seen); URINE RBC 3-10 Few /HPF (NONE SEEN); URINE WBC-REFLEX 6-15 Few /HPF (0-5)
[2021-05-06 19:14] LABS: ABSOLUTE NEUTROPHILS 17.6 thou/uL (1.4-8.2); METAMYELOCYTES 2 %; MYELOCYTES 1 %
[2021-05-06 23:00] VITALS: BP 119/56
--- NOTE | 2021-05-06 23:07 | NUR ---
TRIED TO CALL REPORT TO CCU WITH NO ANSWER.
[2021-05-06 23:24] VITALS: BP 113/58
[2021-05-06 23:55] VITALS: BP 129/65
--- NOTE | 2021-05-07 01:00 | NUR ---
PT AN ADMISSION FOR ADMISION FOR UTI AND ACIDOSIS. PAGED DR. KAMINSKI FOR CONSULT ON CHART. ALERT AND ORIENTED X4. LUNGS ARE CLEAR ON ROON AIR. COMPLAINS OF SOME BURNING WITH URINENATION. VOIDS PER BEDPAN. DENIES ANY PAIN. COMPLAINS OF SOME NAUSEA NOTED. NAUSE MEDS GIVEN FOR COMPLAINTS. WOUND NOTED ON COCCYX PICTURE TAKEN AND PLACED IN CHART FOR DOCUMENTATION. PT REPORTS KNOWS NOTHING OF IT. RIGHT ON THE PROMINENT TAIL BONE. ENCOURAGE PT TO SWITCH SIDES IN BED TO HELP. PLAN OF ADMISSON AND CARE DISSCUSED. CALL LIGHT WITHIN REACH IF NEEDS ASSISTANCE PER NURSING.
[2021-05-07 04:19] VITALS: BP 120/56
[2021-05-07 07:16] VITALS: BP 125/67
--- NOTE | 2021-05-07 08:32 | EKG ---
[place] [address] [facility] [place] [address] ELECTROCARDIOGRAM REPORT Name: PETER PICKETT Room #: 206-P ADM IN M.R.#: [id number] Admission: 05/06/21 Attend Phys: Jason Montalvo MD Discharge: Date of : 41 Report #: [id number] 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: : 1945 Requested By: Miguel Hebert Order Number: [id number] MD: Luis Fletcher Measurements Intervals [place] Rate: 87 P: [place]: QRS: -22 QRSD: 99 T: 91 QT: 370 QTc: 445 Interpretive Statements Atrial flutter Borderline left axis deviation nonspecific ST and T wave abnormality Compared to ECG 05/20/2020 20:25:20 ST (T wave) deviation now present Ventricular-paced complex(es) or rhythm no longer present Electronically Signed On 05-07-2021 8:32:28 CDT by Luis Fletcher [email or web address] <ELECTRONICALLY SIGNED> By: Luis Fletcher MD, [facility] 05/07/21 0832 1757 175 Luis Fletcher MD, [facility] /EPI
[2021-05-07 10:00] LABS: HEMATOCRIT 22.2 % (37.0-47.0); HEMOGLOBIN 7.2 gm/dL (12.0-15.0); MCH 29.4 pg (26.0-34.0); MCHC 32.3 g/dL (28.0-37.0); MCV 91.1 fL (80.0-100.0); RBC 2.44 mil/uL (4.20-5.00); RDW 15.6 % (10.5-14.5); WBC 13.8 thou/uL (4.0-11.0)
[2021-05-07 10:22] LABS: % SATURATION 40 % (20-39); CALCIUM 7.3 mg/dL (8.5-10.1); CREATININE 1.4 mg/dL (0.6-1.0); IRON 70 ug/dL (50-170); POTASSIUM 3.1 mmol/L (3.5-5.1); TIBC 173 ug/dL (250-450)
[2021-05-07 11:56] LABS: FOLIC ACID > 100.0 ng/mL (8.6-58.9)
[2021-05-07 12:00] VITALS: BP 103/62
[2021-05-07 15:20] VITALS: BP 102/66
[2021-05-07 20:05] VITALS: BP 101/49
[2021-05-08] VITALS (8 sets, daily range): BP systolic 85–113; BP diastolic 42–55
[2021-05-08 05:40] LABS: MCH 30.1 pg (26.0-34.0); MCV 90.9 fL (80.0-100.0); PLATELET COUNT 167 thou/uL (150-400); RDW 15.6 % (10.5-14.5); WBC 12.2 thou/uL (4.0-11.0)
[2021-05-08 05:52] LABS: CREATININE 1.3 mg/dL (0.6-1.0); MAGNESIUM 1.9 mg/dL (1.8-2.4); POTASSIUM 3.1 mmol/L (3.5-5.1); TOTAL BILIRUBIN 0.2 mg/dL (0.2-1.0); TOTAL PROTEIN 4.9 g/dL (6.4-8.2)
[2021-05-08 06:10] LABS: HEMATOCRIT 19.1 % (37.0-47.0); HEMOGLOBIN 6.3 gm/dL (12.0-15.0)
--- NOTE | 2021-05-08 08:54 | NUR ---
pt stated she had several bouts of of diarrhea today and was using depend, convinced pt to remove and call for bed pope very compliant, prn pain med given for c/o of abd, iv site and back pain, iv site replaced with new one, pt states shes able to reposition self in bed, hr remains afib with occasional paced beat, sbp at start of shift low 100's and droped this am to 85/42, Tin Gregg notified and received order for 500ns bolus bp fritz to 99/51 after bolus started, also notified Tin Gregg of labs and critical labs orders received, notified pt of new orders and report given to next shift to con't with ppoc.
[2021-05-08 10:23] LABS: METAMYELOCYTES 2 %; MYELOCYTES 7 %
[2021-05-08 10:24] LABS: ABSOLUTE NEUTROPHILS 9.3 thou/uL (1.4-8.2)
[2021-05-08 10:25] LABS: BURR CELLS 2+
[2021-05-08 10:26] LABS: ANISOCYTOSIS 1+; SCHISTOCYTES FEW
--- NOTE | 2021-05-08 13:46 | HC ---
[facility] [place] [address] CONSULTATION Name: PETER PICKETT Room #: 206-P ADM IN M.R.#: [id number] Admission: 05/06/21 Attend Phys: Jason Montalvo MD Discharge: Date of : 41 Report #: [id number] THIS REPORT FOR: cc: Robert Loving MD, Rene P. MD McElhinney, Christian C. MD ~ cc: Alexis Lopez MD, Christian Britton MD, Shanice Archer PA-C DATE OF SERVICE: 05/07/2021 HISTORY OF PRESENT ILLNESS: The patient is a 75-year-old female who underwent an EGD and colonoscopy by Dr. Christian Britton yesterday, technically for screening purpose, but also the patient was having diarrhea as well chronically. I spoke with Dr. Britton, upper endoscopy was normal. The patient also had been having nausea and vomiting intermittently. Colonoscopy was attempted, but she had significant diverticulosis noted in the sigmoid colon and he stated that it was somewhat fixed and very tortuous, therefore, he did not try to push through this area, so was unable to do a complete colonoscopy. He obtained routine labs after the procedure. At home later, he was told of lab changes and he recommended that she be seen in the Emergency Room for possible hospitalization. Her creatinine was up; other electrolytes were abnormal as well reportedly. On admission here, her white count was 19.8 yesterday, today it is 13.8. She is on antibiotics. She underwent a CT scan of the abdomen and pelvis yesterday through the Emergency Room, which showed a fluid-filled cecum with mild distention and mobile cecum located in the lower pelvis. The wall of the cecum was mildly thickened and there is some pericecal fat stranding. Air within the adjacent urinary bladder was noted. A fistula to the urinary bladder was not seen, but would be difficult to exclude. The patient denies passing any air or stool through her urine recently. She does report a long history of several months of low midline abdominal pain. There is a constant component, but it can get worse at times. She denies any recent fevers or chills. She does report nausea, poor appetite, recent weight loss. Denies any dysphagia. Currently, denies any chest pain or shortness of breath. She states her bowel movements have been fairly normal recently. She denies any blood in her stools. PAST MEDICAL HISTORY: History of diverticulosis, coronary artery disease status post cardiac stents in the past, chronic pain, cardioversion in the past. She has undergone a previous hysterectomy, history of rheumatoid arthritis, depression, anxiety, hypothyroidism, hypertension, hyperlipidemia, gastroesophageal reflux disease. She has undergone a pacemaker/defibrillator placement. She has a history of COPD, diverticulosis. REVIEW OF SYSTEMS: As per HPI. MEDICATIONS: On admission, Xarelto, calcium, Topamax, ____, magnesium, Lipitor, hyoscyamine p.r.n., potassium chloride, Zoloft, albuterol, tramadol, Benicar, [address] [address] CONSULTATION Name: PETER PICKETT Room #: 206-P ADM IN M.R.#: [id number] Admission: 05/06/21 Attend Phys: Jason Montalvo MD Discharge: Date of : 41 Report #: [id number] spironolactone, folic acid, Topamax, Synthroid, Plaquenil, Pacerone, omeprazole b.i.d., diltiazem and Prolia every 6 months. ALLERGIES: CIPRO, PLAVIX, CODEINE, HYDROCODONE, REGLAN, PENICILLIN, SULFA, COUMADIN, CONTRAST DYE. FAMILY HISTORY: Negative for colon cancer. SOCIAL HISTORY: Previous smoker, quit in 1994. Denies any alcohol use. PHYSICAL EXAMINATION: VITAL SIGNS: Temperature is 36.6, pulse 110, blood pressure is 102/66, respiratory rate is 17. GENERAL: She is alert and oriented x 3, in no acute distress. HEENT: Sclerae nonicteric. Oropharynx clear. NECK: Supple, without lymphadenopathy. CARDIOVASCULAR: Regular rhythm. Tachycardic. CHEST: Decreased breath sounds bilaterally. ABDOMEN: Soft. She is tender to palpation in the lower quadrants in the midline, nondistended, positive bowel sounds. EXTREMITIES: No cyanosis, clubbing or edema. LABORATORY DATA: WBC is 13.8, hemoglobin 7.2, this is down from 8.9 yesterday, platelet count is 187. Sodium 138, potassium 3.1, chloride 108, bicarbonate 11, BUN 39, creatinine 1.4, calcium 7.3, magnesium 2.2, iron 70, TIBC is 173, percent sat is 40, total bilirubin 0.4, AST 28, ALT 29, alkaline phosphatase 91. BNP is 3921, albumin 2.7, lipase 328. UA with trace protein, 1+ ketones, 2+ blood, 3+ leukocyte esterase, rbc's 3-10, wbc's 6-15, bacteria greater than 30. INR is 1.1. COVID test was negative. Chest x-ray yesterday on admission, no acute abnormalities noted. ASSESSMENT AND PLAN: 1. Lower abdominal pain. The patient has been having this for several months. CT scan of the abdomen showing air in the bladder, which could be a sign of fistula, possibly from the cecum, as there is thickening near the cecum. The patient had an attempted colonoscopy yesterday, but unsuccessful due to tortuosity and narrowing in the distal sigmoid colon. She has a known history of diverticulosis. She does have an elevated white count. Agree with Urology consultation and General Surgery consultation, which they have seen today. IV antibiotics. The patient denies any air or stool in her urine at this time. We will await further cultures. 2. Gastroesophageal reflux disease. Continue PPI therapy. [facility] [address] [place] [address] CONSULTATION Name: PETER PICKETT Room #: 206[facility] IN M.R.#: [id number] Admission: 05/06/21 Attend Phys: Jason Montalvo MD Discharge: Date of : 41 Report #: [id number] Thank you for allowing me to participate in her care. <ELECTRONICALLY SIGNED> By: Wing Garcia MD 05/08/21 1346 1710 0111 Wing Garcia MD /nt
[2021-05-08 15:10] LABS: HEMATOCRIT 23.5 % (37.0-47.0); HEMOGLOBIN 7.9 gm/dL (12.0-15.0)
--- NOTE | 2021-05-08 15:18 | NUR ---
VAT CONSULTED FOR PIV PLACEMENT. 20GX1.75IN PIV TO RIGHT ANTERIOR FOREARM, USING US GUIDANCE, X1 ATTEMPT. LABS DRAWN AND SENT.
--- NOTE | 2021-05-08 16:53 | NUR ---
PATIENT DISCHARGED [facility]. TAKEN BY [facility]. SENT WITH PICC LINE FOR ABX AND CHRONIC MILLER. TELE REMOVED. REPORT CALLED TO FACILITY TO BRYCE GAYTAN.
--- NOTE | 2021-05-09 03:06 | NUR ---
SLEPT PART OF SHIFT. PAIN MEDICATION GIVEN PRN FOR ABDOMANAL PAIN. VOIDING SMALL AMOUNTS. BLOOD PRESSURE 90'S SYSTOLIC. DENIES COMPLAINTS OF DIZZINESS. MONITOR VS, LABS AND BLOOD SUGAR ORDERED. WORKING ON GOALS AND PLAN OF CARE FOR NOC. CONTINUE TO ASSES CLOSELY.
[2021-05-09 04:12] VITALS: BP 111/50
[2021-05-09 04:41] LABS: HEMATOCRIT 23.3 % (37.0-47.0); HEMOGLOBIN 7.9 gm/dL (12.0-15.0); MCH 29.9 pg (26.0-34.0); MCHC 34.1 g/dL (28.0-37.0); MCV 87.6 fL (80.0-100.0); RBC 2.66 mil/uL (4.20-5.00); RDW 15.5 % (10.5-14.5)
[2021-05-09 05:34] LABS: ALBUMIN 1.9 g/dL (3.4-5.0); CREATININE 1.2 mg/dL (0.6-1.0); MAGNESIUM 1.5 mg/dL (1.8-2.4); TOTAL BILIRUBIN 0.3 mg/dL (0.2-1.0); TOTAL PROTEIN 4.7 g/dL (6.4-8.2)
[2021-05-09 06:11] LABS: POTASSIUM 4.3 mmol/L (3.5-5.1)
[2021-05-09 08:00] VITALS: BP 102/63
[2021-05-09 11:45] VITALS: BP 100/60
[2021-05-09 15:55] VITALS: BP 112/56
--- NOTE | 2021-05-09 17:18 | NUR ---
TOOK OVER PATIENT'S CARE AT 0700. PATIENT RESTING IN BED AT THIS TIME; PATIENT COMPLAINT OF PAIN; RATES PAIN A "14 OUT OF 10" PATIENT IS LAYING IN BED, WITH NO OBVIOUS SIGNS OF GRIMACING, WHINCING, OR DISTRESS. PRN PAIN MEDICATION GIVEN. PLAN TO HAVE CYSTOGRAM TODAY; PREMEDICATED PATIENT DUE TO CONTRAST SENSITIVITY. MILLER CATHETER PLACED FOR PROCEDURE. FAMILY MEMBER PRESENT AT BEDSIDE DURING DAY. FALL PRECAUTIONS IN PLACE, CALL LIGHT WITHIN REACH, DENIES ANY OTHER NEEDS.
--- NOTE | 2021-05-09 17:48 | NUR ---
Met with patient who admits with abnormal labs. Patient resides at home in [place] with spouse and dtr. Patient uses a walker due to balance issues. She has steps in home that she has difficulty with some times. She reports she has told her they need a stairglide. She reports spouse and dtr avail during the day. She drives short distances. she does some cooking. She has shower tub with a seat. She has a pacemaker placed.No hx of HH/rehab in past. [facility] following for dc planning.
[2021-05-09 20:15] VITALS: BP 126/80
[2021-05-10 04:45] VITALS: BP 128/75
--- NOTE | 2021-05-10 07:48 | NUR ---
pt resting quietly in room, calls out appropriatly for asst to bsc, sm bm this am, iv infusing vss with hr 90 to low 100's in afib per monitor, will con't to monitor per ppoc.
[2021-05-10 07:55] VITALS: BP 130/62
[2021-05-10 11:35] VITALS: BP 115/52
[2021-05-10 14:38] LABS: HEMATOCRIT 23.9 % (37.0-47.0); MCH 29.4 pg (26.0-34.0); MCHC 33.3 g/dL (28.0-37.0); MCV 88.5 fL (80.0-100.0); RBC 2.7 mil/uL (4.20-5.00); RDW 15.4 % (10.5-14.5); WBC 14.1 thou/uL (4.0-11.0)
[2021-05-10 14:44] LABS: CALCIUM 7.2 mg/dL (8.5-10.1); CREATININE 1.1 mg/dL (0.6-1.0); MAGNESIUM 1.4 mg/dL (1.8-2.4); POTASSIUM 4.6 mmol/L (3.5-5.1)
--- NOTE | 2021-05-10 14:45 | NUR ---
BUSINESS CONTROLLER PAGED FOR PT WITH SUDDEN SOA AND CP?. PT DENIES CHEST PAIN UP QUESTIONING HER PAIN LEVEL FOR THE ASSESSMENT. STATES I ONLY FELT SHORT OF BREATH. SEE FLOWSHEET FOR DETAILS.
[2021-05-10 15:12] LABS: ALBUMIN 2.1 g/dL (3.4-5.0); TOTAL BILIRUBIN 0.1 mg/dL (0.2-1.0); TOTAL PROTEIN 4.6 g/dL (6.4-8.2)
--- NOTE | 2021-05-10 15:43 | NUR ---
PT WAS NOTED TO HAVE NEW ONSET CHEST PAIN AND SHORTNESS OF BREATH AT 1424. STAT CXR, LABS, EKG ORDERED AND THIS AUTOMATICALLY REFLXED AT RAPID RESPONSE. O2 PLACED ON THE PT AND THIS HELPED HER. EKG NON-REMARKABLE, PHYSICIAN READ AT BEDSIDE. BILATERAL FOREARM PIV'S DC'D DUE TO INFILTRATION. NEW PIV INSERTED. PT, SON, AND ? AT BEDSIDE HAVE BEEN THOUROUGHLY UPDATED AND EDUCATED ON PT CONDITION AND POC. PT SLOWLY PROGRESSING TOWARDS POC.
[2021-05-10 15:50] VITALS: BP 106/50
[2021-05-10 20:07] VITALS: BP 107/67
[2021-05-11 03:09] LABS: HEMATOCRIT 22.6 % (37.0-47.0); HEMOGLOBIN 7.5 gm/dL (12.0-15.0); MCH 29.4 pg (26.0-34.0); MCHC 33.1 g/dL (28.0-37.0); MCV 89.1 fL (80.0-100.0); RBC 2.54 mil/uL (4.20-5.00); RDW 15.7 % (10.5-14.5); WBC 13.3 thou/uL (4.0-11.0)
[2021-05-11 03:31] LABS: CALCIUM 7.1 mg/dL (8.5-10.1); MAGNESIUM 1.4 mg/dL (1.8-2.4); POTASSIUM 4.4 mmol/L (3.5-5.1); TOTAL BILIRUBIN 0.2 mg/dL (0.2-1.0); TOTAL PROTEIN 4.9 g/dL (6.4-8.2)
--- NOTE | 2021-05-11 04:03 | NUR ---
RECEIVED THE PATIENT AT 1900H.PATIENT IS ALERT AND ORIENTEDX4.ON NASAL CANNULA AT 2LPM SATURATING WELL.AFIB ON THE MONITOR.ALL NEEDS ATTENDED.TO CONTINOUSLY MONITOR.
[2021-05-11 04:24] VITALS: BP 108/62
[2021-05-11 08:00] VITALS: BP 132/73
[2021-05-11 11:55] VITALS: BP 115/64
--- NOTE | 2021-05-11 12:29 | EKG ---
[address] [address] ELECTROCARDIOGRAM REPORT Name: PETER PICKETT Room #: 206-P ADM IN M.R.#: [id number] Admission: 05/06/21 Attend Phys: Jason Montalvo MD Discharge: Date of : 41 Report #: [id number] [facility] Test Date: 2021-05-10 Test Time: 14:20:58 Pat Name: PETER PICKETT Department: Room: 206 P Gender: F Executive Chairman: SG : 1945 Requested By: Jason Montalvo Order Number: [id number] MD: Luis Fletcher Measurements Intervals [place] Rate: 99 P: [place]: QRS: 5 QRSD: 77 T: 45 QT: 377 QTc: 484 Interpretive Statements Atrial fibrillation Low voltage Prolonged QT interval Compared to ECG 05/06/2021 17:57:10 Low QRS voltage now present Prolonged QT interval now present Electronically Signed On 05-11-2021 12:29:17 PROFESSIONAL HEALTHCARE REPRESENTATIVE by Luis Fletcher [email or web address] <ELECTRONICALLY SIGNED> By: Luis Fletcher MD, [facility] 05/11/21 1229 1420 1420 Luis Fletcher MD, [facility] /EPI
[2021-05-11 16:15] VITALS: BP 125/70
--- NOTE | 2021-05-11 19:27 | NUR ---
PT IS PROGRESSING TOWARDS CARE. CONTINUE TO HAVE ABD PAIN, PAIN MED GIVEN PER ORDER. ALERT AND ORIENTED X4. ON 2L OF OXYGEN, SOB WITH EXERTION. UP TO BSC X1. FALL PRECAUTIONS IN PLACE
[2021-05-11 20:13] VITALS: BP 120/73
[2021-05-12 04:25] VITALS: BP 139/71
--- NOTE | 2021-05-12 07:52 | NUR ---
PT SLOWLY PROGRESSING TOWARD GOALS. SHE CONTINUES TO COMPLAIN OF PAIN IN HER LEFT LOWER ABDOMINAL QUADRANT, AT TIMES DURING PERIODS OF REST LOW 3; AFTER MOVEMENT OR AFTER HER "MEDICINE WEARS OFF" SHE RATES HER PAIN 9-10. MEDICATED WITH PRN MORPHINE AND TYLENOL PER ORDERS. PT HAS URINARY FREQUENCY, AND CALLED APPROXIMATELY EVERY HOUR TO USE THE BEDSIDE COMMODE WITH SBA X1.
[2021-05-12 08:10] VITALS: BP 149/90
--- NOTE | 2021-05-12 08:44 | NUR ---
UPON MORNING MEDICATION ADMINISTRATION, PT AOX4. PT REPORTS 10/10 LLQ PAIN HER 'BLADDER'. PT RECEIVING PRN IV MORPHINE Q6HR. PT REPORTS SLIGHT SOB WHILE ON 1L WHILE AT REST, NO DESATURATIONS NOTED. PT ENCOURAGED TO NOTIFY STAFF FOR ALL NEEDS, CALL LIGHT WITHIN REACH, BED ALARM ON, BED LOCKED IN LOWEST POSITION, FREQUENT MONITORING WILL CONTINUE.
[2021-05-12 11:45] VITALS: BP 143/79
[2021-05-12 15:13] VITALS: BP 137/77
--- NOTE | 2021-05-12 17:29 | NUR ---
PATIENTIS A/OX4 ABLE TO MAKE NEEDS KNOWN. VSS AFEBRILE. C/O PAIN IN LLQ, MORPHINE AND TYLENOL IS HELPING WITH THE PAIN. PARTIAL RELIEF. CONTINUES ON IV ABT; NO ADVERSE SIDE EFFECTS NOTED. WORKED WITH PT/OT TODAY. SBA FOR SAFETY. CONTINUE WITH POC
[2021-05-13 00:50] VITALS: BP 120/58
[2021-05-13 04:51] LABS: HEMATOCRIT 22.3 % (37.0-47.0); HEMOGLOBIN 7.3 gm/dL (12.0-15.0); MCH 29.7 pg (26.0-34.0); MCHC 32.9 g/dL (28.0-37.0); MCV 90.4 fL (80.0-100.0); RBC 2.47 mil/uL (4.20-5.00); RDW 15.7 % (10.5-14.5); WBC 11.8 thou/uL (4.0-11.0)
[2021-05-13 05:04] LABS: CALCIUM 7.1 mg/dL (8.5-10.1); POTASSIUM 5.2 mmol/L (3.5-5.1)
[2021-05-13 08:09] VITALS: BP 141/73
--- NOTE | 2021-05-13 09:07 | NUR ---
PT RESTING ON AND OFF THRU THE NOC, C/O ABD PAIN GIVEN PRN MORPHINE AND TYLENOL WITH PARTIAL RELIEF, PT WITH MODERATE LIQUID STOOL THIS AM WITH BRIGHT RED COLOR AND YELLOW URINE WITH BLOOD CLOTS, NOTIFIED PHYS. AND RECEIVED ORDERS, HAT PLACED IN TOILET FOR OB NA XERALTO PLACED ON HOLD, VSS, WILL CON'T TO MONITOR PER PPOC.
[2021-05-13 11:28] VITALS: BP 131/62
[2021-05-13 14:30] LABS: HEMATOCRIT 23.7 % (37.0-47.0); HEMOGLOBIN 7.6 gm/dL (12.0-15.0)
[2021-05-13 15:50] VITALS: BP 153/78
--- NOTE | 2021-05-13 19:32 | NUR ---
PT IS AXOX4, PLEASANT; VSS, AFEBRILE, AFIB ON THE MONITOR. C/O PAIN IN LLQ ABDOMEN. PT TO HAVE CT SCAN TODAY WITH CONTRAST; PRE MEDICATED WITH ALLERGY MEDICATION. GI CONSULTED, DR MELENDEZ CONSULTED. AWAITING RESULTS OF CT SCAN. POC IS TO CONTINUE TO MONITOR VS, HGB, CHEMISTRY. PT/OT CONSULTED TO PROMOTE ACTIVITY TOLERATED. INTENTION TO WEAN PT OFF O2; CURRENTLY 1LNC WITH EXERTION. MONITOR BM FOR OCCULT STOOL. FALL PRECAUTIONS IN PLACE. NO CONCERNS AT THIS TIME.
[2021-05-13 20:00] VITALS: BP 126/71
[2021-05-14 03:46] VITALS: BP 116/66
--- NOTE | 2021-05-14 04:32 | NUR ---
PT IS ALERT AND ORIENTED X4. LUNGS ARE CLEAR TO DIMINISHED. UP TO BEDSIDE COMMODE WITH HELP FROM NURSING. COMPLAINS OF ABDOMEN PAIN. PAIN MEDS GIVEN WITH RELIEF NOTED. AND THEN SLEEPING AFTER. ABDOMEN IS ROUND SOFT. BOWEL SOUNDS HYPOACTIVE. VOIDS BLOODY THEN CLEAR YELLOW NOTED. ONGOING MONITORING OF LABS CURRENTLY. AND CALL LIGHT WITHIN REACH IF NEEDS ASSISTANCE PER NURSING
[2021-05-14 07:37] VITALS: BP 134/76
[2021-05-14 10:33] LABS: HEMATOCRIT 20.7 % (37.0-47.0); HEMOGLOBIN 6.6 gm/dL (12.0-15.0)
[2021-05-14 11:04] VITALS: BP 95/50
[2021-05-14 14:16] VITALS: BP 118/73; BP 124/63; BP 137/75
--- NOTE | 2021-05-14 17:20 | NUR ---
discussed home [place] with patient she has no preference. [facility] does not service area. Referral to A.
--- NOTE | 2021-05-14 19:39 | NUR ---
PT IS AXOX4, PLEASANT; VSS, AFEBRILE, AFIB ON THE MONITOR. H&H DRAWN ON PT, 6.6 HGB. PT RECEIVED ONE (1) UNIT RBC. C/O PAIN IN LLQ IN ABDOMEN; RX MORPHINE AND TYLENOL GIVEN. PT TO HAVE NM ABDOMINAL SCAN THIS PM, WITH INTENT TO CONDUCT COLONOSCOPY IN THE AM. CONSENT SIGNED AND IN CHART. POC IS TO CONTINUE PAIN MGMT, MONITOR LAB VALUES DIMITRIS. H&H; PT/OT CONSULTED TO PROMOTE ACTIVITY TOLERATED. FALL PRECAUTIONS IN PLACE. NO CONCERNS AT THIS TIME.
[2021-05-14 20:37] VITALS: BP 142/73
[2021-05-14 21:46] LABS: HEMATOCRIT 25.9 % (37.0-47.0); HEMOGLOBIN 8.4 gm/dL (12.0-15.0)
[2021-05-14 23:43] VITALS: BP 129/73
[2021-05-15 03:11] VITALS: BP 140/71
[2021-05-15 07:37] VITALS: BP 139/77
--- NOTE | 2021-05-15 07:46 | NUR ---
patients cares where assumed at shift change. patient was assessed and meds where passed. patient was off the floor untill approx 1999. due to a ct scan. ct was reported as unremarkable. the golytely prep was canceled. patient had three nicole at where bloody. patient is a little fussy and wants to go home. rounds where done. the bed is in a low and locked position.
--- NOTE | 2021-05-15 10:41 | NUR ---
Assumed care of pt this AM. Pt is A&O x4, on RA. ST on the monitor. Dela Cruz present & draining appropriately. Pt has been NPO since last night. Relayed in report that colonoscpy was cancelled for this AM. Spoke w/ Becka this AM, colonoscpy was not suppose to be cancelled. Hold PO medications until told otherwise. Waiting to hear what plan for day will be. Pt updated on plan. Will continue to assess needs throughout day.
[2021-05-15 11:50] VITALS: BP 127/69
[2021-05-15 12:41] LABS: HEMATOCRIT 26.5 % (37.0-47.0); HEMOGLOBIN 8.7 gm/dL (12.0-15.0)
[2021-05-15 15:39] VITALS: BP 114/71
[2021-05-15 20:15] VITALS: BP 131/59
[2021-05-16] VITALS (7 sets, daily range): BP systolic 110–133; BP diastolic 60–87
[2021-05-16 05:29] LABS: HEMATOCRIT 27.2 % (37.0-47.0); HEMOGLOBIN 8.9 gm/dL (12.0-15.0); MCH 30.2 pg (26.0-34.0); MCHC 32.9 g/dL (28.0-37.0); MCV 91.8 fL (80.0-100.0); RBC 2.96 mil/uL (4.20-5.00); RDW 16.2 % (10.5-14.5)
--- NOTE | 2021-05-16 07:45 | NUR ---
PATIENTS CARES WAS ASSUMED AT SHIFT CHANGE. PATIENT WAS ASSESSED AND MED WHERE PASSED. PATIENT DID NOT FINISH THE PREP. LAST SLOOT PINK TINT. ROUNDS WHERE MADE. THE BED IS IN A LOW AND LOCKED POSITION
[2021-05-16 09:00] LABS: HEMATOCRIT 26.4 % (37.0-47.0); HEMOGLOBIN 8.5 gm/dL (12.0-15.0)
[2021-05-16 09:33] LABS: RBC 2.88 mil/uL (4.20-5.00); WBC 8.9 thou/uL (4.0-11.0)
[2021-05-16 09:34] LABS: MCH 29.4 pg (26.0-34.0); MCHC 32.1 % (28.0-37.0); MCV 91.8 fL (80.0-100.0); PLATELET COUNT 180 thou/uL (150-400); RDW 15.8 % (10.5-14.5)
[2021-05-16 09:59] LABS: ALBUMIN 2.5 g/dL (3.4-5.0); CALCIUM 8.1 mg/dL (8.5-10.1); CREATININE 0.9 mg/dL (0.6-1.0); MAGNESIUM 1.3 mg/dL (1.8-2.4); POTASSIUM 5.2 mmol/L (3.5-5.1); TOTAL BILIRUBIN 0.3 mg/dL (0.2-1.0); TOTAL PROTEIN 5.8 g/dL (6.4-8.2)
--- NOTE | 2021-05-16 10:29 | NUR ---
If colonoscopy cancelled, recommend advance diet back to regular, lactose free.
[2021-05-16 12:56] LABS: ABSOLUTE NEUTROPHILS 5.6 thou/uL (1.4-8.2); METAMYELOCYTES 1 %; MYELOCYTES 1 %
[2021-05-16 12:57] LABS: ANISOCYTOSIS 1+; SCHISTOCYTES RARE
--- NOTE | 2021-05-16 17:14 | NUR ---
If patient to dc over weekend plan dc with care. Call [facility] [phone] alert of dc. Fax orders to [phone].
--- NOTE | 2021-05-16 17:45 | NUR ---
Assumed care of pt this AM. Pt is A&O x4, received on 2L NC, currently on RA. ST on the montior. Went for colonoscopy today which didn't go as pt hoped. Pt on clr liquid diet per gen surg. Straight cath today for urine specimen per Dr. Samson. Wound care consult put it for open area on pts coccyx. Barrier cream applied & educated about Q2 turns & getting up out of bed as tolerated. Pt understands.
[2021-05-16 17:59] LABS: URINE BILIRUBIN NEGATIVE (Negative); URINE BLOOD NEGATIVE (Negative); URINE CLARITY SL CLOUDY; URINE COLOR YELLOW; URINE GLUCOSE-RANDOM* NEGATIVE (Negative); URINE KETONES NEGATIVE (Negative); URINE LEUKOCYTES-REFLEX NEGATIVE (Negative); URINE NITRITE-REFLEX NEGATIVE (Negative); URINE PROTEIN (DIPSTICK) NEGATIVE (Negative); URINE SPECIFIC GRAVITY 1.015 (1.005-1.035); URINE UROBILINOGEN 0.2 E.U./dl (0.2-1.0)
[2021-05-16 19:22] LABS: HEMATOCRIT 24.2 % (37.0-47.0)
--- NOTE | 2021-05-17 01:34 | NUR ---
PATIENT CARES WHERE ASSUMED AT SHIFT CHANGE. PATIENT WAS ASSESSED, HER ROOM WAS SPOTLESS, ROUNDING WAS DONE . WILL CONTINUE TO NONITOR
[2021-05-17 02:06] LABS: GLYCOHEMOGLOBIN (HGB A1C) 5.1 % (4.8-5.6)
[2021-05-17 03:22] VITALS: BP 137/72
[2021-05-17 07:29] VITALS: BP 127/61
[2021-05-17 10:00] LABS: HEMATOCRIT 23.9 % (37.0-47.0); HEMOGLOBIN 7.6 gm/dL (12.0-15.0)
[2021-05-17 11:41] VITALS: BP 115/66
--- NOTE | 2021-05-17 12:04 | NUR ---
Assumed care of pt this AM. Pt is A&O x4, ST on the monitor, on RA. Pt continues to be hypoglycemic this AM. 62 this AM, given OJ w/ rise to 63. Pt given another OJ with rise to 67. Pt given 1/2 amp dextrose w/ recheck showing glucose @ 57. Pt continues to be asympotomatic. Orders obtained from Dr. Samson. Consult put in for midline. Pt continues to c/o LLQ abd pain & requires medication frequently. Pt son visiting today. Will continue to assess pt frequently.
--- NOTE | 2021-05-17 12:32 | NUR ---
A #4F MIDLINE WAS PLACED PER HOSPITAL POLICY AFTER VERBAL CONSENT WAS OBTAINED. THE PROCEDURE WELL BENIFITS AND RISKS WERE DICUSSED AND SHE VERBALIZED UNDERSTANDING. THE MIDLINE WAS PLACED IN THE RIGHT UPPER ARM BASILIC AFTER TRIMMING TO 14CM. THE LINE WAS ADVANCED WITHOUT DIFFICULTY AND SECURED. LINE WAS RELEASED FOR USE
[2021-05-17 15:35] LABS: ABSOLUTE NEUTROPHILS 4.2 thou/uL (1.4-8.2); BASOPHILS 0.9 % (0.0-2.0); EOSINOPHILS 0.7 % (0.0-3.0); HEMATOCRIT 23.1 % (37.0-47.0); HEMOGLOBIN 7.3 gm/dL (12.0-15.0); LYMPHOCYTES 11.8 % (24.0-44.0); MCH 29.7 pg (26.0-34.0); MCHC 31.8 g/dL (28.0-37.0); MCV 93.4 fL (80.0-100.0); MONOCYTES 23.6 % (1.0-8.0); PLATELET COUNT 173 thou/uL (150-400); RBC 2.47 mil/uL (4.20-5.00); RDW 16.3 % (10.5-14.5); WBC 6.7 thou/uL (4.0-11.0)
[2021-05-17 15:38] VITALS: BP 114/62
[2021-05-17 15:48] LABS: CALCIUM 7.2 mg/dL (8.5-10.1); CREATININE 0.8 mg/dL (0.6-1.0); POTASSIUM 4.2 mmol/L (3.5-5.1)
[2021-05-17 15:52] LABS: ALBUMIN 2.1 g/dL (3.4-5.0); MAGNESIUM 1.6 mg/dL (1.8-2.4); TOTAL BILIRUBIN 0.2 mg/dL (0.2-1.0); TOTAL PROTEIN 4.3 g/dL (6.4-8.2)
[2021-05-17 20:15] VITALS: BP 146/83
[2021-05-17 21:50] LABS: HEMATOCRIT 24.8 % (37.0-47.0); HEMOGLOBIN 7.9 gm/dL (12.0-15.0)
[2021-05-18] VITALS (10 sets, daily range): BP systolic 106–141; BP diastolic 57–82
[2021-05-18 02:22] LABS: HEMOGLOBIN 6.9 gm/dL (12.0-15.0); LYMPHOCYTES 9.3 % (24.0-44.0); WBC 3.7 thou/uL (4.0-11.0)
[2021-05-18 02:24] LABS: ABSOLUTE NEUTROPHILS 3.1 thou/uL (1.4-8.2); BASOPHILS 0.4 % (0.0-2.0); HEMATOCRIT 20.9 % (37.0-47.0); MCH 30.4 pg (26.0-34.0); MCV 91.9 fL (80.0-100.0); MONOCYTES 7.8 % (1.0-8.0); PLATELET COUNT 150 thou/uL (150-400); POLYS 82.5 % (36.0-66.0); RBC 2.27 mil/uL (4.20-5.00); RDW 15.5 % (10.5-14.5)
[2021-05-18 02:36] LABS: ALBUMIN 1.9 g/dL (3.4-5.0); CREATININE 0.9 mg/dL (0.6-1.0); POTASSIUM 3.8 mmol/L (3.5-5.1); TOTAL BILIRUBIN 0.2 mg/dL (0.2-1.0); TOTAL PROTEIN 4.5 g/dL (6.4-8.2)
--- NOTE | 2021-05-18 05:08 | NUR ---
PT REMAINS NPO SINCE MNOC FOR EXP LAP TODAY, PRN PAIN MEDS GIVEN NEEDED FOR ABD PAIN, UP WITH SBA TO BSC, HGB DROPPED BELOW 7 THIS AM AND 1 U PRBC ORDERED D10 FLUID PLACED ON HOLD AND NS STARTED AND BLOOD INFUSION STARTED @0448, VSS, NO BM'S THIS SHIFT, WILL CON'T TO MONITOR PER PPOC.
--- NOTE | 2021-05-18 16:01 | HC ---
[facility] [place] [address] CONSULTATION Name: PETER PICKETT Room #: 206-P ADM IN M.R.#: [id number] Admission: 05/06/21 Attend Phys: Jason Montalvo MD Discharge: Date of : 41 Report #: [id number] THIS REPORT FOR: cc: Robert Loving MD, Rene P. MD Geha,Michael Levin MD ~ DATE OF SERVICE: 05/17/2021 INFECTIOUS DISEASE CONSULTATION REASON FOR CONSULTATION: I was asked to evaluate concerning possible sepsis and recent urinary tract infection service. HISTORY OF PRESENT ILLNESS: The patient was a 75-year-old with underlying history of rheumatoid arthritis, on Plaquenil and leflunomide longstanding. She has had several-month history of diarrhea. She has also had intermittent nausea and vomiting. With this, she has had weight loss. Denied any blood in her stool. She has had a history of diverticular disease. The day prior to her admission, she underwent a colonoscopy, which showed diverticulosis with marked narrowing and inability to pass through the sigmoid colon. EGD was unremarkable. In addition to this, she had dysuria and some low back pain. Denied any fever, chills, or sweats. On presentation, she had a creatinine of 1.7, lactate of 0.9. Liver function tests normal. Hemoglobin of 8.9, a white count of 19.8. Urinalysis did show 3+ leukocyte esterase, although only 6-15 wbc's. She did have greater than 30 bacteria per high-power field. Chest x-ray was clear and CT scan of the abdomen showed fluid within the cecum with thickening and some pericecal fat stranding. There was air within the adjacent bladder without previous instrumentation. She had right nephrolithiasis. She had heavily calcified right renal artery aneurysm. There was no evidence or report of diverticulitis. She was treated with meropenem due to her multiple drug allergies. Her white count normalized, although she continues to have liquid stools. The Proteus identified from her blood was pansensitive. She did grow E. coli and few Proteus, both of which were sensitive organisms. She has been seen by General Surgery, GI Service, and Nephrology. Cystogram failed to identify colovesicular fistula. Yesterday, she underwent flexible sigmoidoscopy with a pediatric scope, again unable to pass through the sigmoid colon where there was a fixed angulated stenosis and dense diverticulosis evident. The patient continues to have abdominal pain but denies any flank pain or discomfort. She continues to have loose stools recorded 3 times today. The patient denies any blood in her stool at this point and is having no dysuria. Followup urinalysis yesterday was negative. REVIEW OF SYSTEMS: A 14-point review of system was negative other than what has been described above. The most notable she has had no change in her arthritis symptoms and she has had no cough or sputum production. [address] [address] CONSULTATION Name: PETER PICKETT Room #: 206-P [facility] IN M.R.#: [id number] Admission: 05/06/21 Attend Phys: Jason Montalvo MD Discharge: Date of : 43 Report #: [id number] ALLERGIES: CIPROFLOXACIN, PENICILLIN, SULFA, METRONIDAZOLE. THE PATIENT IS UNCLEAR IF SHE HAS EVER BEEN ON A CEPHALOSPORIN. ALSO, ALLERGIC TO CLOPIDOGREL, CODEINE, HYDROCODONE, TETRACYCLINE, WARFARIN, IV CONTRAST. MEDICATIONS: As noted on her MAR, having been placed on aztreonam and clindamycin today. PAST MEDICAL HISTORY: Atrial fibrillation, hysterectomy, coronary artery disease with stents along with cardioversion and a defibrillator pacemaker, appendectomy, D and C, bilateral toe surgeries, rheumatoid arthritis, anxiety, depression, hypothyroidism, hypertension, hyperlipidemia, gastroesophageal reflux, diverticulosis, emphysema, dental extractions. FAMILY HISTORY: Coronary artery disease, diabetes. SOCIAL HISTORY: Past smoker. No significant alcohol intake. PHYSICAL EXAMINATION: GENERAL: Afebrile and hemodynamically stable. Alert and cooperative, in no acute distress. SKIN: Without rash or decubitus. 1+ lower extremity edema. HEENT: Eyes without scleral icterus. Mouth without mucositis. NECK: Supple. No palpable adenopathy. CHEST: Left chest pacemaker site without erythema or tenderness. LUNGS: Few crackles in the bases. HEART: Regular, without appreciable murmur, gallop, or rub. ABDOMEN: Soft, mild tenderness in the lower abdomen without associated mass. There is no guarding or rebound. There is no CVA tenderness. EXTREMITIES: Without clubbing or cyanosis. GENITAL AND RECTAL: Examination not performed. NEUROLOGIC: Mood without anxiety or depression. Cranial nerves intact. Strength in the upper and lower extremities was symmetric and within normal limits. LABORATORY DATA: Reviewed. MICROBIOLOGY: Reviewed. IMAGING: CT scan imaging of the abdomen and pelvis x 2 was reviewed along with chest x-ray, cystogram, GI bleed study. IMPRESSION: A 75-year-old with rheumatoid arthritis, on leflunomide, presents with chronic diarrhea, failed colonoscopy due to distal obstruction and findings of Proteus bacteremia with both Proteus and Escherichia coli seen in her urine with a fairly unremarkable urinalysis. She did have air in her urinary tract [facility] [address] [place] [address] CONSULTATION Name: PETER PICKETT Room #: 206-P ADM IN M.Bradly.#: [id number] Admission: 05/06/21 Attend Phys: Jason Montalvo MD Discharge: Date of : 41 Report #: [id number] and does have nephrolithiasis. CT imaging shows that the nephrolithiasis is nonobstructing. At this point, unclear whether her bacteremia was from urinary tract or from diverticular disease noting on recent colonoscopy. She also has anemia, suspected lower gastrointestinal source. Although the patient remains afebrile and has a normal white count, she does have recurring abdominal pain which is yet indeterminate as to the specific source, although colon source seems most probable. The patient has MULTIPLE DRUG ALLERGIES. RECOMMENDATION: We will restart intravenous antibiotics as General Surgery has been reconsulted and we will consider surgical intervention to address her colon issues. Repeat blood cultures have been obtained and we will await the studies. We will check serial laboratory studies with differential and assess her response to antibiotic therapy. <ELECTRONICALLY SIGNED> By: Michael Louie MD 05/18/21 1601 1541 57 Michael Louie MD /nt
[2021-05-19 02:36] LABS: HEMATOCRIT 28.9 % (37.0-47.0)
[2021-05-19 02:55] LABS: HEMOGLOBIN 9.4 gm/dL (12.0-15.0)
--- NOTE | 2021-05-19 04:21 | NUR ---
PATIENT ARRIVED FROM SURGERY SHORTLY BEFORE SHIFT CHANGE. PATIENT RATING PAIN 1O/10. PATIENT HAS NEW ILIOSTOMY AND HAD SOME COLON REMOVED. MILLER IN PLACE. ON STRICT NPO, NO ORAL MEDS WERE GIVEN. EMPHYSIS ON PAIN CONTROL. PATIENT FINALLY ABLE TO SLEEP AFTER 0100. PATIENT IN GOOD SPIRITS BESIDES PAIN.
[2021-05-19 04:45] VITALS: BP 119/73
[2021-05-19 08:07] VITALS: BP 119/67
[2021-05-19 08:10] LABS: HEMATOCRIT 29.2 % (37.0-47.0); HEMOGLOBIN 9.8 gm/dL (12.0-15.0); MCH 30.5 pg (26.0-34.0); MCHC 33.4 g/dL (28.0-37.0); MCV 91.3 fL (80.0-100.0); PLATELET COUNT 175 thou/uL (150-400); RDW 16.4 % (10.5-14.5)
[2021-05-19 08:30] LABS: CALCIUM 6.9 mg/dL (8.5-10.1); CREATININE 0.9 mg/dL (0.6-1.0); MAGNESIUM 1.7 mg/dL (1.8-2.4); PHOSPHORUS 3.5 mg/dL (2.5-4.9); POTASSIUM 4.7 mmol/L (3.5-5.1)
[2021-05-19 08:36] LABS: WBC 16.3 thou/uL (4.0-11.0)
[2021-05-19 09:18] LABS: PLATELET ESTIMATE NORMAL
--- NOTE | 2021-05-19 11:03 | NUR ---
WOUND CONSULT; THERE IS THE STAGE TO THE COCCYX REGION. THERE IS A STAGE 2 PRESSURE INJURY THAT HAS NO S/S OF INFECTION. NO ERYTHEMA TO THE PERIWOUND. THE AREA IS BEING OFFLOADED WITH PILLOWS. RECOMMENDATIONS; -ZGUARD AND A SMALL SACRAL FOAM, CHANGE M/W/F PRN. -ADD A LOW AIR LOSS PUMP. -TURN Q2H AT A (MINIMUM). DISCUSSED WITH RN.
[2021-05-19 11:49] VITALS: BP 128/70
--- NOTE | 2021-05-19 13:55 | NUR ---
Assumed care of pt this AM. Pt is A&O x4, on 2L NC. SA/Tach on the monitor. Ileostomy in place, patent w/ dark green drainage. Dela Cruz patent. Pt reporting 10/10 abd pain consistently throughout the day, requiring frequent PRN pain medication. Non pharm pain management in place. Work w/ PT/OT today. Will continue to monitor needs.
[2021-05-19 14:07] LABS: CEA 12.1 ng/mL (0.0-4.7)
--- NOTE | 2021-05-19 14:55 | NUR ---
patient had colectomy, now with illeostomy. Registered patient with [facility] for supplies. THerapy re-ordered. Cont plan for home with care. [facility] has acccepted patient. updates sent to [facility].
[2021-05-19 16:29] VITALS: BP 139/65
[2021-05-19 19:38] VITALS: BP 109/67
[2021-05-19 23:59] VITALS: BP 137/76
[2021-05-20 04:02] VITALS: BP 123/64
[2021-05-20 06:09] LABS: CALCIUM 6.4 mg/dL (8.5-10.1)
[2021-05-20 06:29] LABS: POTASSIUM 3.7 mmol/L (3.5-5.1)
--- NOTE | 2021-05-20 08:04 | NUR ---
PT IS A&OX4 AND ABLE TO COMMUNICATE ALL WANTS AND NEEDS TO STAFF APPROPRIATELY. PT WITH NEW ILEOSTOMY WHICH IS DRAINING DARK BROWN/GREEN LIQUID STOOL APPROPRIATELY. MIDLINE INCISION DRESSING IS C/D/I. PT WITH MILLER CATHETER AND ADEQUATE URINARY OUTPUT. PT CONTINUES TO COMPLAIN OF SEVERE ABDOMINAL PAIN, LOCALIZED IN THE LEFT AND RIGHT LOWER QUADRANTS. SHE WAS MEDICATED WITH DILAUDID IV X5 FOR PAIN; AFTER EACH ADMINISTRATION, SHE FELL ASLEEP FOR APPROXIMATELY AN HOUR, THEN WOKE UP IN CONTINUED PAIN. SHE ALSO HAD C/O NAUSEA AND RECEIVED ZOFRAN X2 WITH GOOD RELIEF. CONTINUES ON D10/NS FOR RECENT HYPOGLYCEMIA, BS WAS 96 ON POC TESTING AT HS AND WAS 101 ON AM LABS. DRESSING CHANGED TO WOUND ON BUTTOCK/COCCYX, SCANT DRAINAGE NOTED ON PREVIOUS DRESSING. LOW AIR LOSS MATTRESS IN PLACE AND FUNCTIONING APPROPRIATELY, WELL HEEL PROTECTORS. REPORT GIVEN TO ONCOMING NURSE
[2021-05-20 08:33] LABS: HEMATOCRIT 25.4 % (37.0-47.0); HEMOGLOBIN 8.2 gm/dL (12.0-15.0); MCH 29.3 pg (26.0-34.0); MCHC 32.3 g/dL (28.0-37.0); MCV 90.8 fL (80.0-100.0); RBC 2.8 mil/uL (4.20-5.00); RDW 16.3 % (10.5-14.5); WBC 13.6 thou/uL (4.0-11.0)
[2021-05-20 08:46] VITALS: BP 118/66
[2021-05-20 09:33] VITALS: BP 105/68
--- NOTE | 2021-05-20 10:54 | NUR ---
Assumed care of pt this AM. Pt is A&O x 4, on RA; ST on the monitor. Pt still c/o abd pain 04/13, unrelieved by PRN pain medication. Ileostomy patent & draining. Dela Cruz patent & draining. Pt up to chair today w/ PT. Spoke w/ son & updated on POC.
[2021-05-20 12:59] VITALS: BP 111/53
[2021-05-20 15:57] VITALS: BP 116/56
[2021-05-20 19:25] VITALS: BP 125/68
[2021-05-21 04:42] VITALS: BP 145/90
[2021-05-21 05:25] LABS: HEMATOCRIT 28.4 % (37.0-47.0); HEMOGLOBIN 9.3 gm/dL (12.0-15.0); MCH 29.7 pg (26.0-34.0); MCHC 32.7 g/dL (28.0-37.0); RBC 3.12 mil/uL (4.20-5.00); RDW 16.1 % (10.5-14.5); WBC 12.4 thou/uL (4.0-11.0)
--- NOTE | 2021-05-21 05:46 | NUR ---
ASSESSMENTS CHARTED. PATIENT RESTING IN BED DURING SHIFT GETTING UP TO BSC. GETTING FENTANYL FOR PAIN. SHE ACTUALLY RATED HER PAIN A 9 ONCE INSTEAD OF ALL 10'S. MAINTAINING A GREAT ATTITUDE.
[2021-05-21 05:47] LABS: ALBUMIN 1.8 g/dL (3.4-5.0); CALCIUM 6.6 mg/dL (8.5-10.1); CREATININE 0.8 mg/dL (0.6-1.0); MAGNESIUM 2.1 mg/dL (1.8-2.4); PHOSPHORUS 1.6 mg/dL (2.5-4.9); POTASSIUM 3.3 mmol/L (3.5-5.1)
[2021-05-21 07:51] VITALS: BP 146/85
[2021-05-21 11:28] VITALS: BP 149/79
--- NOTE | 2021-05-21 12:42 | HC ---
[facility] [address] [place] [address] CONSULTATION Name: PETER PICKETT Room #: 206-P ADM IN M.R.#: [id number] Admission: 05/06/21 Attend Phys: Jason Montalvo MD Discharge: Date of : 41 Report #: [id number] THIS REPORT FOR: cc: Robert Loving MD, Rene P. MD Smithson, David G. MD ~ DATE OF SERVICE: 05/19/2021 HISTORY OF PRESENT ILLNESS: The patient is a 75-year-old white female with history of diverticulosis and gastrointestinal bleed. She had an abnormal CT scan and a flex sig showed dense diverticulosis of the sigmoid with stricture. She underwent subtotal colectomy on 05/18 with a new ileostomy. We are seeing her in rehabilitation medicine consultation. She has been monitored for anemia with recent gastrointestinal bleed. She initially was admitted with sepsis secondary to urinary tract infection. PAST MEDICAL HISTORY: Includes rheumatoid arthritis, chronic atrial fibrillation, chronic pain, GERD. MEDICATIONS: Please see the full medication listing. ALLERGIES: She has multiple allergies, which are listed. SOCIAL HISTORY: Lives in a house with her , 3 steps in 2-story house. She utilizes a four-wheeled walker, drives. There is a daughter that is available during the day. REVIEW OF SYSTEMS: No current complaints of chest pain, shortness of breath or abdominal discomfort. PHYSICAL EXAMINATION: GENERAL: She is a pleasant 75-year-old white female in no obvious distress. She appears to be a good historian. Facies are symmetric. She has the new ileostomy. EXTREMITIES: She has functional range of motion of both upper extremities with strength grade 4/5. DTRs are trace to 1. She has some chronic rheumatoid changes. Lower extremities has functional range of motion. No focal calf swelling. Strength is grade 4-/5. Prior to surgery, she was standby assistance for transfers and was ambulating 100 feet, min assist with a front-wheeled walker. ASSESSMENT: A 75-year-old white female with the following problem list: 1. Generalized weakness and debilitation. 2. Sigmoid stricture with gastrointestinal bleed, now status post subtotal colectomy 05/18/2021. [facility] [address] [place] [address] CONSULTATION Name: PETER PICKETT Room #: 206-P [facility] IN ..#: [id number] Admission: 05/06/21 Attend Phys: Jason Montalvo MD Discharge: Date of : 41 Report #: [id number] 3. Sepsis due to urinary tract infection. 4. Acute renal insufficiency. 5. Chronic atrial fibrillation. 6. Rheumatoid arthritis. PLAN: The patient was doing quite well premorbidly from a functional perspective and would think that she will be able to return directly back home as she further medically and surgically stabilizes and is taught the basics regarding her new ileostomy. We will have PT and OT reassess her now postoperatively and we will follow along with you regarding her rehab therapy needs. <ELECTRONICALLY SIGNED> By: Erik Mayorga MD 05/21/21 1242 1118 [id number] Erik Mayorga MD /nt
[2021-05-21 15:33] VITALS: BP 145/97
[2021-05-21 20:25] VITALS: BP 132/77
[2021-05-22 04:45] VITALS: BP 132/86
[2021-05-22 07:48] VITALS: BP 134/86
[2021-05-22 11:02] VITALS: BP 113/68
--- NOTE | 2021-05-22 13:20 | NUR ---
WOUND CARE F/U; THE COCCYX WAS REASSESSED TODAY AND IS STABLE SINCE LAST ASSESSMENT. THE PATIENT SPENDS MUCH OF THE DAY IN THE CHAIR AND IS USING A CUSHION. I ENCOURAGED MUCH TIME FULLY OFFLOADING IN BED POSSIBLE. THERE IS NO S/S OF INFECTION OR FURTHER TRAUMA TO THE AREA. SPENT 10 MINUTES EDUCATING PATIENT ON ALL ISSUES RELATED TO THIS WOUND. RECCOMMENDATIONS; CONTINUE CURRENT TREATMENT.
[2021-05-22 15:11] VITALS: BP 125/72
--- NOTE | 2021-05-22 16:39 | NUR ---
Patient to dc home once ID sees patient. Faxed orders to [facility] and confirmed receipt. No further needs.
--- NOTE | 2021-05-22 16:45 | NUR ---
TOOK OVER CARE OF PATIENT AT 0700. BEDSIDE SHIFT REPORT RECEIVED. PATIENT RESTING IN CHAIR AT THIS TIME WITH SPOUSE PRESENT. PT DENIES SOA, CHEST PAIN, FATIGUE, HEADACHE, OR DIZZINESS. PATIENT COMPLAINT OF NAUSEA AT THIS TIME; ADMINISTERED PRN NAUSEA MEDICATION. FALL PRECAUTIONS IN PLACE. WILL CONTINUE TO MONITOR.
[2021-05-22 20:47] VITALS: BP 131/81
[2021-05-23] VITALS (9 sets, daily range): BP systolic 118–130; BP diastolic 66–86
--- NOTE | 2021-05-23 02:21 | NUR ---
ASSESSED AT START OF SHIFT. PT RESTING IN BED. EVENING MEDS GIVEN AND PT GISELA IT WELL. UP WITH ASSIST TO THE BSC. FALL PREC IN PLACE. COLOSTOMY INTACT AND YELLOW COLOR OUTPUT NOTED. FALL PREC IN PLACE AND CALL LIGHT AT REACH. TRAMADOL GIVEN FOR PAIN. BSG CHECKED AND PO ORANGE JUICE AND SNACK PROVIDED. WILL CONT TO MONITOR.
[2021-05-23 06:22] LABS: CALCIUM 6.9 mg/dL (8.5-10.1); POTASSIUM 5.1 mmol/L (3.5-5.1)
--- NOTE | 2021-05-23 10:08 | PATH ---
[facility] [address] [place] [address] PATHOLOGY RPT PROCEDURE Name: LEELA PICKETT Room #: 206-P ADM IN M.R.#: [id number] Admission: 05/06/21 Date of : 41 Discharge: Report #: [id number] Path Case #: [id number] [facility] Accession Number: [id number] . 01 Material submitted: . colon - COLON . 01 Clinical history: . SIGMOID STRICTURE . 02 Diagnosis: Submitted as, "colon": - Colonic wall with extensive diverticulosis, peridiverticulitis with perforation and extensive serositis and serosal adhesions. - Ischemic changes of mucosa also identified. - Tubular adenomas x3, negative for high grade dysplasia or malignancy. - Proximal and distal colonic margins are negative for malignancy. . (ANK:mmkaleigh; 05/21/2021) QLM 05/21/2021 1538 Local . 02 Electronically signed: . Akilah N Chang, MD, Pathologist NPI- [id number] . 01 Gross description: . The specimen is received in formalin, labeled "Leela Pickett, Colon" and consists of the ascending, transverse, descending and portion of sigmoid colon (66.0 cm in length by 2.1 cm-4.5 cm in diameter) with attached omentum (25.0 x 11.2 x 1.5 cm), terminal ileum (5.5 cm in length by 2.3 cm diameter) and abundant attached fat. The appendix is not present. The serosa is jimenes-arreola, dusky and displays, on the cecum a hemorrhagic area of discoloration (over inked blue, 5.7 x 3.0 cm) with overlying fibrous exudate. The cecal serosal area of discoloration displays a transmural defect (2.0 x 0.5 cm). The distal end of the colon displays a second hemorrhagic area of serosal discoloration (over inked black, 4.5 x 2.7 cm) with overlying fibrous exudate. The stapled proximal margin is inked red, the stapled distal margin is inked green and the mesenteric margin is selectively inked orange. The specimen is opened to reveal, within the cecum a jimenes brown denuded dusky area of mucosal discoloration (approximately 4.9 x 3.5 cm) that comes to within 6.5 cm from the proximal margin, 64.5 cm from the distal margin and approximately 4.7 cm from the mesenteric margin and directly underlies the cecal serosal area of discoloration and transmural defect. Extending centrally from the mucosal area of discoloration is a valadez, soft, amorphous polypoid tissue (3.7 x 2.0 cm) that comes to within 6.0 cm from proximal margin, 64.5 cm from the distal margin and 5.5 cm from the [facility] [address] [place] [address] PATHOLOGY RPT PROCEDURE Name: LEELA PICKETT Room #: 206-P ADM IN M.R.#: [id number] Admission: 05/06/21 Date of : 41 Discharge: Report #: [id number] Path Case #: [id number] mesenteric margin. The wall thickness underlying the cecal mucosal area of discoloration is thickened up to 1.2 cm. Scattered throughout the ascending and transverse colon are 3 arreola polyps (ranging from 0.4 x 0.3 cm to 0.4 x 0.4 cm), the nearest of which comes to within 10.3 cm from the proximal margin, 9.5 cm from the mesenteric margin, 31.2 cm from the distal margin and 9.8 cm distal of the mucosal area of discoloration. Sectioning through the polyps reveals arreola cut surfaces, the largest of which measures up to 0.3 cm thick and each appears confined to the mucosa. The distal third of the specimen displays a focal luminal constriction (11.0 cm in length by 2.1 cm in diameter) that narrows the luminal diameter down to 0.6 cm. The ileocecal valve is red to pale yellow and edematous. The distal third of the specimen is serially sectioned lengthwise to show a small mouth diverticula (0.3 x 0.2 cm) that is surfaced by the distal serosal area of discoloration (inked black). The wall thickness at the area of constriction averages 0.6 cm thick and no definitive perforations, fistula tracks or abscess cavities are identified. The omentum and the remaining mucosa is unremarkable. No lymph nodes are identified upon brief examination. Supervisor [employer] sections are submitted as follows: A1: Proximal margin, submitted en face, entirely submitted A2: Distal margin, submitted en face, entirely submitted and mesenteric margin, submitted en face, represented A3-A5: Cecal mucosal area of discoloration, represented to include the amorphous tissue represented in A3 and a section to show the transmural defect in A4 A6: Polyps, entirely submitted A7: Cross section to show luminal constriction, represented A8: Ileocecal valve, represented A9: Diverticula, represented to include overlying distal serosal area of discoloration A10: Omentum, represented ([employer]; 05/20/2021) DKA/DKA 05/20/2021 1333 Local . 02 Pathologist provided ICD-10: K57.30, K57.32, D12.6 . 02 CPT . 776016 Specimen Comment: A courtesy copy of this report has been sent to [phone] Specimen Comment: Report sent to Specimen Comment: A duplicate report has been generated due to demographic updates. Performed at: [address], [place], [place] [id number] MD Edson Mckeon MD Phone: [phone] Performed at: [address] [address] PATHOLOGY RPT PROCEDURE Name: LEELA PICKETT Room #: 206-P [facility] IN ..#: [id number] Admission: 05/06/21 Date of : 41 Discharge: Report #: [id number] Path Case #: [id number] [address] [id number] MD Sidra Potts MD Phone: [phone]
--- NOTE | 2021-05-23 15:13 | NUR ---
TOOK OVER CARE OF PATIENT AT 0700. REPORT RECEIVED AT BEDSIDE. OSTOMY CARE PROVIDED AND EDUCATION GIVEN. SURGICAL DRESSING WAS SATURATED DUE TO OSTOMY LEAKAGE; CHANGED DRESSING AND SECURED; DRESSING CDI AT THIS TIME. OCCUPATIONAL THERAPY ASSISTED PATIENT WITH SHOWER AND PHYSICAL THERAPY ASSISTED PATIENT WITH WALKING UP STAIRS. PLAN IS TO DC THIS AFTERNOON ONCE HOME [facility]ATLH IS ESTABLISHED AND INFUSION THERAPY SET UP OUTPATIENT. FALL PRECAUTIONS ARE IN PLACE AND CALL LIGHT WITHIN REACH.
--- NOTE | 2021-05-23 16:49 | NUR ---
Pt dcing home today with HH and outpt infusion here at [facility] starting tomorrow. Dc orders faxed and confirmed with [facility]. Referral to [facility] for home infusion indicated out of pocket copay. Discussed with pt and unable to afford. Referral called and faxed to [facility] outpt infusion as pt would have better coverage. Pt aware of instructions to come to the ER over the weekend for her daily dose. Instructions documented in her dc paperwork. Midline in place and pt aware line care to be provided per outpt infusion not [facility]. Pt registered with [facility] as she is a new ostomy.
--- NOTE | 2021-05-26 13:59 | NUR ---
Pt here for outpt infusion and concerned that HH has not called. [facility] now states they are not able to accept her for HH services due to staffing. Referrals called and faxed to [facility], [facility], [facility] and [facility]. All are indicating they do not go to [place] or they can not staff for this week due to the holiday. [facility] is rechecking and pt is considering SNF stay. She would like a referral faxed to [facility]. Referral faxed and message left for admissions.
[2021-05-26] MEDS ORDERED: MEROPENEM-1000 MG/50 IVPB (15:08)
--- NOTE | 2021-06-02 12:26 | O ---
[facility] [place] [address] OPERATIVE REPORT Name: PETER PICKETT Room #: 206-P [facility] IN M.R.#: [id number] Admission: 05/06/21 Attend Phys: Jason Montalvo MD Discharge: 05/23/21 Date of : 43 Report #: [id number] THIS REPORT FOR: cc: Robert Loving MD, Rene P. MD Patterson,Shay Talavera MD ~ DATE OF SERVICE: 05/18/2021 PREOPERATIVE DIAGNOSES: Sigmoid stricture, blood loss anemia. POSTOPERATIVE DIAGNOSES: Sigmoid stricture, blood loss anemia. OPERATION: Subtotal colectomy with end-ileostomy. SURGEON: Shay Wright MD STEEL WELDER: Alexis Lopez MD ANESTHESIA: General. ESTIMATED BLOOD LOSS: 150 mL. SPECIMEN: Subtotal colectomy. DRAINS: None. DESCRIPTION OF PROCEDURE: After informed consent was obtained, the patient was brought to the operating room and placed supine. SCDs were placed and working, preoperative antibiotics were administered, general anesthesia was induced. The abdomen was prepped and draped in the usual sterile fashion. Dela Cruz catheter was placed prior to prepping. Midline laparotomy incision was made from approximately 5 cm above the umbilicus down to the pubis. Fascia was incised and a self-retaining retractor was placed. I began by examining the colon. I started at the mid transverse colon. The gastrocolic ligament was incised. Colon was then retracted medially on the right side to free up the hepatic flexure. The white line of Toldt was taken down using cautery, which mobilized the right colon medially. In the cecum, it was adherent down into the pelvis. I was able to free it up bluntly. There was a small pocket of pus. This is likely where the CT findings demonstrated a possible fistula with the bladder. To confirm that there was no fistula in the bladder, I did instill the bladder with 100 mL of normal saline tinged with methylene blue. There was absolutely no leak from the bladder. The cecum was then mobilized medially. I was then able to ligate the mesentery. The terminal ileum was transected using a DOC blue load stapler approximately 10 cm from the cecum. The mesentery of the right colon was then ligated using the LigaSure device. This was carried out distally on the colon. Once we got to this stage, the left colon was grasped. [address] [address] OPERATIVE REPORT Name: PETER PICKETT Room #: 206-P [facility] IN .R.#: [id number] Admission: 05/06/21 Attend Phys: Jason Montalvo MD Discharge: 05/23/21 Date of : 43 Report #: [id number] It was retracted medially. White line of Toldt was again incised. The splenic flexure was freed up using cautery. The splenocolic ligament was incised with cautery and LigaSure. The lateral attachments of the splenic flexure were taken down with cautery and the splenic flexure mobilized medially. Again, dissection was carried down distally to the rectum. Great care was taken to identify and protect the left ureter and I was able to positively identify the left ureter. The mesentery was then ligated using the LigaSure device distally. I was able to dissect down into the pelvis into the rectosigmoid. I was able to palpate the strictured area in the sigmoid and was able to dissect distal to this. A DOC contour blue load was used to transect the rectum distal to this lesion. The specimen was then removed. The abdomen was copiously irrigated with normal saline. A hole was made in the right upper quadrant and the distal end of the ileum was then brought out through that incision. Fascia was closed with 0 PDS in running fashion. The skin was closed with gricelda. I then fashioned a Zo ileostomy using a 4-0 Vicryl. Sterile dressings were applied as well as ostomy appliance. COMPLICATIONS: None. DISPOSITION: The patient was taken to recovery in satisfactory condition. <ELECTRONICALLY SIGNED> By: Shay Wright MD 06/02/21 1226 1138 1155 Shay Wright MD /nt
== END 2021-05-23 17:33 | DRG 853 ==
LOC: ER 16:58 → EROBS 20:39 → 2N 20:39
PROVIDERS: Emergency Medicine; Hospitalist; Internal Medicine; Nurse Practitioner; Nurse Practitioner Acute Care; Nurse Practitioner Family; ADMIT Internal Medicine; ATTEND Internal Medicine
PROC: BT101ZZ Fluoroscopy of Bladder using Low Osmolar Contrast (ICD-10-PCS; 2021-05-09)
PROC: 0DJD8ZZ Inspection of Lower Intestinal Tract, Via Natural or Artificial Opening Endoscopic (ICD-10-PCS; 2021-05-16)
PROC: 05HB33Z Insertion of Infusion Device into Right Basilic Vein, Percutaneous Approach (ICD-10-PCS; 2021-05-17)
PROC: 0DBN0ZZ Excision of Sigmoid Colon, Open Approach (ICD-10-PCS; principal; 2021-05-18)
PROC: 30233N1 Transfusion of Nonautologous Red Blood Cells into Peripheral Vein, Percutaneous Approach (ICD-10-PCS; principal; 2021-05-18)
PROC: 0D1B0Z4 Bypass Ileum to Cutaneous, Open Approach (ICD-10-PCS; principal; 2021-05-18)
DX: A41.51 Sepsis due to Escherichia coli [E. coli] (principal); E43 Unspecified severe protein-calorie malnutrition; K57.31 Diverticulosis of large intestine without perforation or abscess with bleeding; I50.33 Acute on chronic diastolic (congestive) heart failure; N39.0 Urinary tract infection, site not specified; N17.9 Acute kidney failure, unspecified; I48.20 Chronic atrial fibrillation, unspecified; K56.699 Other intestinal obstruction unspecified as to partial versus complete obstruction; E87.2 Acidosis; D62 Acute posthemorrhagic anemia; I47.2 Ventricular tachycardia; D68.59 Other primary thrombophilia; G89.29 Other chronic pain; M06.9 Rheumatoid arthritis, unspecified; E03.9 Hypothyroidism, unspecified; K21.9 Gastro-esophageal reflux disease without esophagitis; J43.9 Emphysema, unspecified; E78.5 Hyperlipidemia, unspecified; F32.9 Major depressive disorder, single episode, unspecified; F41.9 Anxiety disorder, unspecified; E87.6 Hypokalemia; I25.10 Atherosclerotic heart disease of native coronary artery without angina pectoris; R53.81 Other malaise; J30.2 Other seasonal allergic rhinitis; I48.0 Paroxysmal atrial fibrillation; M79.7 Fibromyalgia; M81.0 Age-related osteoporosis without current pathological fracture; R63.4 Abnormal weight loss; E83.42 Hypomagnesemia; B96.4 Proteus (mirabilis) (morganii) as the cause of diseases classified elsewhere; E16.2 Hypoglycemia, unspecified; E78.00 Pure hypercholesterolemia, unspecified; K52.9 Noninfective gastroenteritis and colitis, unspecified; I11.0 Hypertensive heart disease with heart failure; I27.20 Pulmonary hypertension, unspecified; Z90.710 Acquired absence of both cervix and uterus; Z95.5 Presence of coronary angioplasty implant and graft; Z95.0 Presence of cardiac pacemaker; Z88.0 Allergy status to penicillin; Z88.2 Allergy status to sulfonamides; Z88.8 Allergy status to other drugs, medicaments and biological substances; Z88.6 Allergy status to analgesic agent; Z88.1 Allergy status to other antibiotic agents; Z91.041 Radiographic dye allergy status; Z87.891 Personal history of nicotine dependence; Z82.49 Family history of ischemic heart disease and other diseases of the circulatory system; Z83.3 Family history of diabetes mellitus
CPT/HCPCS: 10081; 50010; 50093; 50101; 50290; 50386; 50455; 51412; 51708; 51712; 56525; 56526; 56528; 57092; 57103; 62110; 62900; 70005

== ENCOUNTER → 2021-05-24 | Outpatient (CLI) | payer OTHER, MEDICARE ==
[~2021-05-24] MED LIST changes: +MEROPENEM-1000 MG/50 IVPB
[2021-05-24 11:51] VITALS: BP 121/58
== END ==
LOC: OPONC 12:00
PROVIDERS: ATTEND Specialist
DX: T81.43XA Infection following a procedure, organ and space surgical site, initial encounter (principal); K65.1 Peritoneal abscess; Y83.9 Surgical procedure, unspecified as the cause of abnormal reaction of the patient, or of later complication, without mention of misadventure at the time of the procedure; Y92.89 Other specified places as the place of occurrence of the external cause
CPT/HCPCS: 95000

== ENCOUNTER → 2021-05-25 | Outpatient (CLI) | payer OTHER, MEDICARE ==
[2021-05-25 10:12] VITALS: BP 147/91
== END ==
LOC: OPONC 12:00
PROVIDERS: ATTEND Specialist
DX: T81.43XA Infection following a procedure, organ and space surgical site, initial encounter (principal); K65.1 Peritoneal abscess; K52.9 Noninfective gastroenteritis and colitis, unspecified; Y83.9 Surgical procedure, unspecified as the cause of abnormal reaction of the patient, or of later complication, without mention of misadventure at the time of the procedure; Y92.89 Other specified places as the place of occurrence of the external cause
CPT/HCPCS: 95000

== ENCOUNTER → 2021-05-26 | Outpatient (CLI) | payer OTHER, MEDICARE ==
[2021-05-26 10:24] VITALS: BP 152/90
[2021-05-26 15:15] VITALS: BP 152/90
[2021-05-26 15:39] LABS: ABSOLUTE NEUTROPHILS 9.1 thou/uL (1.4-8.2); BASOPHILS 0.6 % (0.0-2.0); EOSINOPHILS 0.5 % (0.0-3.0); HEMATOCRIT 27.3 % (37.0-47.0); HEMOGLOBIN 8.7 gm/dL (12.0-15.0); LYMPHOCYTES 4.9 % (24.0-44.0); MCH 29.4 pg (26.0-34.0); MCV 91.9 fL (80.0-100.0); MONOCYTES 12.4 % (1.0-8.0); PLATELET COUNT 282 thou/uL (150-400); POLYS 81.6 % (36.0-66.0); RBC 2.98 mil/uL (4.20-5.00); RDW 16.1 % (10.5-14.5); WBC 11.1 thou/uL (4.0-11.0)
[2021-05-26 15:56] LABS: CALCIUM 7.9 mg/dL (8.5-10.1); CREATININE 1.2 mg/dL (0.6-1.0); POTASSIUM 4.8 mmol/L (3.5-5.1); TOTAL BILIRUBIN 0.2 mg/dL (0.2-1.0); TOTAL PROTEIN 5.8 g/dL (6.4-8.2)
== END ==
LOC: OPONC 13:15
PROVIDERS: ATTEND Specialist
DX: T81.43XA Infection following a procedure, organ and space surgical site, initial encounter (principal); K65.1 Peritoneal abscess; K52.9 Noninfective gastroenteritis and colitis, unspecified; Y83.9 Surgical procedure, unspecified as the cause of abnormal reaction of the patient, or of later complication, without mention of misadventure at the time of the procedure; Y92.89 Other specified places as the place of occurrence of the external cause
CPT/HCPCS: 95000

== ENCOUNTER 2021-05-31 23:25 | Inpatient (IN) | payer OTHER, MEDICARE ==
[~2021-05-31] VITALS: Ht 160 cm; Wt 69.9 kg
--- NOTE | ~2021-05-31 | EMS ---
[address] [address] EMS Patient Care Report Name: PETER PICKETT Room #: 170-8 ADM IN M.R.#: [id number] Admission: 06/01/21 Attend Phys: Jose Maravilla MD Discharge: Date of : 41 Report #: [id number] THIS REPORT FOR: //name// Report Transmitted: 06/01/2021 06:35 EMS Care Summary [facility] EMS Incident [id number] @ 05/31/2021 22:24 Incident Location [address] [place] [address] Patient PETER PICKETT Female, 75 Years 1945 Patient Address [address] [place] [address] Patient History Cardiac - Stent,Atrial Fibrillation,Colostomy, Patient Allergies No known allergies, Patient Medications Plavix, Chief Complaint COLLSTOMY BAG LEAK Disposition Transported No Lights/[place] Dispatch Reason Sick Person Transported To [facility] Narrative MEDIC 142 WAS DISPATCHED BY 911 FOR A CODE 3 ILL SUBJECT AT [address] [place] [address] IN [facility]. AN ALS ASSESSMENT WAS [address] [address] EMS Patient Care Report Name: PETER PICKETT Room #: 170-8 ADM IN M.R.#: [id number] Admission: 06/01/21 Attend Phys: Jose Maravilla MD Discharge: Date of : 41 Report #: [id number] PERFORMED BY ISABELA JAMIL, AND CARE REMAINED UNDER ISABELA JAMIL FOR THE DURATION OF THE INCIDENT. S. DISPATCH ADVISED THAT THE PATIENT WAS A 75 YEAR OLD FEMALE WHO HAD A COLOSTOMY BAG PLACED AND IT WAS LEAKING INTO HER INCISION SITE. DISPATCH ADVISED THAT THE PATIENT WAS COMPLETELY ALERT AND RESPONDING APPROPRIATELY. EMS ARRIVED TO FIND AN ALERT AND ORIENTATED 75 YEAR OLD FEMALE LAYING SUPINE INBED WHO WAS RESPONDING APPROPPRIATELY TO EMS PERSONNEL. PA STAFF ADVISED THAT THE PATIENT HAD THE BAG PLACED ON THE 2ND OF THIS MONTH, AND THAT IT HAD BEEN LEAKING EVER SINCE BUT THAT THEY WERE ABLE TO KEEP IT UNDER CONTROL UNTIL YESTERDAY. STAFF ADVISED THAT THEY HAD STARTED THE PATIENT ON ANTIBIOTICS JUST IN CASE OF AN INFECTION BROUGHT ON BY THE LEAKING OF THE CONTENTS. SAFF ADVISED THAT THE PATIENT HAD RECIEVED ONE GRAM OF MEROPHENOL IV AND THAT THE PATIENT NEEDED TRANSPORT TO [facility] TO FIX THE ISSUE. PATIENT ADVISED THAT SHE WAS FEELING NAUSEOUS AND SLIGHT ABDOMINAL DISCOMFORT, BUT OTHERWISE NO ADDITIONAL COMPLAINTS. PATIENT ADVISED THAT SHE HAD BEEN ON ANTIBIOTICS EVER SINCE SHE HAD THE BAG PLACED BY [facility]. PATIENT DENIED ANY TRAUMA THAT COULD HAVE ALTERED THE PLACEMENT OF THE BAG AND THAT IT HAD JUST BEEN LEAKING AROUND THE SEAL FOR SOME TIME. PATIENT ADVISED THE NAUSEA HAD GOTTEN BETTER POST ZOFRAN. PATIENT VOICED NO ADDITIONAL COMPLAINTS DURING TRANSPORT. Sarina CHAN PATIENT CONTACT, CREW OF MEDIC 142 ASSESSED AN ALERT AND ORIENTATED 75 YEAR OLD FEMALE LAYING SUPINE INBED WHO WAS RESPONDING APPROPPRIATELY TO EMS PERSONNEL. AIRWAY- PATENT, SELF-MAINTAINED WITH THE TRACHEA MIDLINE AND NO JVD NOTED. BREATHING- SPONTANEOUS AND UNLABORED WITH EQUAL RISE AND FALL OF THE CHEST. CIRCULATION- PULSES PRESENT AND EQUAL IN ALL EXTREMITIES WITH THE SKIN WARM, DRY, AND PINK. GCS- 15 LOC- AXOX4 EYES- GWEN AT 3 MM LUNGS- CBBS CMS- INTACT IN ALL EXTREMITIES WITH EQUAL AND APPROPRIATE MOVEMENT IN ALL EXTREMITIES. ABDOMEN- MINOR LEAKING FROM COLOSTOMY BAG NOTED AND CONTROLLED BY PA STAFF PRIOR TO EMS TRANSPORT WITH NO F[place]TGHER LEAKING NOTED. 4 MG ZOFRAN ADMINISTERED ORAL FOR NAUSEA. IV WITHHELD DUE TO LACK OF VEINS, AGE, AND BLOOD THINNERS. A. TRANSFER TO [facility] CARE P. SCENE SAFE> BSI> CONTACT> BSI> ALS ASSESSMENT> HPI> PATIENT MOVED TO STRETCHER> PATIENT SECURED TO STRETCHER> PATIENT LOADED INTO MEDIC UNIT> BEASE VITALS> 4MG ZOFRAN> RADIO REPORT TO [place]> RE-ASSESSED INTERVENTIONS> ARRIVAL > SIGNATURES OBTAINED> FACE TO FACE> MEDIC 142 CLEARED [facility] [address] [place] [address] EMS Patient Care Report Name: PETER PICKETT Room #: 170-8 ADM IN .R.#: [id number] Admission: 06/01/21 Attend Phys: Jose Maravilla MD Discharge: Date of : 43 Report #: [id number] Initial Vitals @22:53P: 110,R: 18,BP: 136/74,GCS: 15,SpO2: 99,Revised Trauma: 12, @22:54P: 103,BP: 120/66,GCS: 15,SpO2: 99, @23:08P: 112,R: 18,BP: 128/74,GCS: 15,Temp: 98.6F,SpO2: 99,Revised Trauma: 12, @23:14P: 111,R: 20,BP: 134/66,GCS: 15,SpO2: 99,Revised Trauma: 12, Impression travograph operator failure Procedures @22:33 ALS Assessment Response: UnchangedSucceeded @22:43 Zofran - 4 Milligrams (mg) - Oral Response: Improved Timeline 22:22,Call Received 22:22,Dispatch Notified 22:22,Psap Call 22:24,Dispatched 22:25,En Route 22:30,Initial Responder On Scene 22:30,On Scene 22:33,At Patient 22:33,ALS Assessment,Response: UnchangedSucceeded, 22:43,Depart Scene 22:43,Zofran - 4 Milligrams (mg) - Oral,Response: Improved 22:53,BP: 136/74 M,PULSE: 110,RR: 18 R,SPO2: 99 Ox,ETCO2: ,BG: ,PAIN: ,GCS: 15, 22:54,BP: 120/66 M,PULSE: 103,RR: R,SPO2: 99 Ox,ETCO2: ,BG: ,PAIN: ,GCS: 15, 23:08,BP: 128/74 M,PULSE: 112,RR: 18 R,SPO2: 99 Ox,ETCO2: ,BG: ,PAIN: ,GCS: 15, 23:14,BP: 134/66 M,PULSE: 111,RR: 20 R,SPO2: 99 Ox,ETCO2: ,BG: ,PAIN: ,GCS: 15, 23:15,At Destination 23:30,Call Closed Disclaimer v1.1 Copyright 2020 [employer] This EMS Care Summary contains data elements from the applicable legal record (which may be displayed differently). It is designed to provide pertinent information for the following purposes: continuity of care, clinical quality, and state data reporting. The complete legal record is available to ED staff and administrators of the receiving hospital in [employer] Patient Tracker. All data is provided "as is."
[2021-05-31 23:29] VITALS: BP 129/54
[2021-06-01 01:16] LABS: RDW 15.8 % (10.5-14.5)
[2021-06-01 01:18] LABS: HEMATOCRIT 25.6 % (37.0-47.0); HEMOGLOBIN 8.3 gm/dL (12.0-15.0); MCH 29.3 pg (26.0-34.0); MCHC 32.2 g/dL (28.0-37.0); PLATELET COUNT 282 thou/uL (150-400); RBC 2.82 mil/uL (4.20-5.00); WBC 9.3 thou/uL (4.0-11.0)
[2021-06-01 01:23] LABS: CALCIUM 8.2 mg/dL (8.5-10.1); CREATININE 1.1 mg/dL (0.6-1.0); POTASSIUM 3.8 mmol/L (3.5-5.1)
[2021-06-01 01:29] LABS: ALBUMIN 1.9 g/dL (3.4-5.0); TOTAL BILIRUBIN 0.2 mg/dL (0.2-1.0); TOTAL PROTEIN 5.4 g/dL (6.4-8.2)
[2021-06-01 02:01] LABS: ABSOLUTE NEUTROPHILS 6.4 thou/uL (1.4-8.2)
[2021-06-01 06:53] VITALS: BP 134/91
[2021-06-01 07:14] VITALS: BP 126/72
[2021-06-01 08:00] VITALS: BP 130/60
[2021-06-01 13:47] VITALS: BP 132/67
[2021-06-01 19:00] VITALS: BP 119/61
[2021-06-01 23:44] VITALS: BP 123/65
[2021-06-02 04:50] VITALS: BP 130/63
[2021-06-02 06:57] LABS: ABSOLUTE NEUTROPHILS 4.8 thou/uL (1.4-8.2); BASOPHILS 1.2 % (0.0-2.0); EOSINOPHILS 4.1 % (0.0-3.0); HEMATOCRIT 21.6 % (37.0-47.0); HEMOGLOBIN 7.1 gm/dL (12.0-15.0); LYMPHOCYTES 12.7 % (24.0-44.0); MCH 29.6 pg (26.0-34.0); MCHC 32.7 g/dL (28.0-37.0); MCV 90.6 fL (80.0-100.0); MONOCYTES 17.8 % (1.0-8.0); PLATELET COUNT 230 thou/uL (150-400); POLYS 64.2 % (36.0-66.0); RBC 2.38 mil/uL (4.20-5.00); RDW 16.1 % (10.5-14.5); WBC 7.5 thou/uL (4.0-11.0)
[2021-06-02 07:18] LABS: ALBUMIN 1.8 g/dL (3.4-5.0); CALCIUM 7.4 mg/dL (8.5-10.1); CREATININE 0.9 mg/dL (0.6-1.0); MAGNESIUM 1.2 mg/dL (1.8-2.4); PHOSPHORUS 2.7 mg/dL (2.6-4.7); POTASSIUM 3.4 mmol/L (3.5-5.1); TOTAL BILIRUBIN 0.2 mg/dL (0.2-1.0); TOTAL PROTEIN 4.9 g/dL (6.4-8.2)
[2021-06-02 07:43] VITALS: BP 117/49
--- NOTE | 2021-06-02 07:50 | NUR ---
ASSUMED CARE AT 1900, PT LAYING IN BED COMFORTABLY, EKG COMPLETED, PT REPORTS NO PAIN OR DISCOMFORT, COMPLIANT WITH TX, NO ADVERSE REACTION NOTED, CALL LIGHT AND BELONGING WITHIN REACH, TOILETED NEEDED, WILL CONTINUE TO MONITOR.
--- NOTE | 2021-06-02 10:59 | NUR ---
WOUND/OSTOMY CONSULT; THE PATIENT HAS A SMALL AREA TO THE RIGHT BUTTOCK APPROX 0.4 0.4 X 0.1 THAT HAS NO S/S OF INFECTION. THIS WOUND WAS FROM A PRIOR ADMISSION. THE PATIENT HAS AN OSTOMY THAT WAS POORLY CARED FOR AT A SKILLED FACILITY. THERE IS ESCORIATION AROUND THE OSTOMY AND ENTIRE ABDOMEN. I USED BARRIER SWABS AND MARATHON TO PROVIDE A DRY SURFACE TO HEAL THE SKIN AROUND THE STOMA. THE STOMA IS ROUND AND HEALTHY RED, ABOUT 1 INCH. THERE IS GREEN DISCHARGE. -APPLY BARRIER SWABS AND MARATHON TO PROTECT THE PERISTOMAL SKIN PRN. -APPLY ZGUARD TO BUTTOCKS WOUND DAILY/PRN DISCUSSED WITH BYRON
[2021-06-02 12:17] VITALS: BP 117/49
--- NOTE | 2021-06-02 12:26 | NUR ---
Pt known to cm from recent admission and dc home with hh and outpt infusion; then snf admit directly from home on 05/26/21 to [facility]. Staff [employer] Officer spoke with the pt via phone. She indicates readission due to ostomy wound infection. She is being seen by surgery, ID and wound care. She reports doing ok with PT eval and wants to consider going home with hh again at dc vs going back to the SNF as she did not feel it was helpful. Clinical update faxed to [facility] as they had accepted last week prior to decision to go to the SNF. Awaiting their confirmation of acceptance. Pt will need continued wound care and therapy at home. She has 3 steps to enter and 12 upstairs. She lives with her spouse who is helpful. She has a rwalker for home use. Awaiting ID imput regarding any ongoing iv atb needs. Support provided to pt. Will follow.
[2021-06-02 15:41] VITALS: BP 111/63
[2021-06-02 20:00] VITALS: BP 121/63
[2021-06-02 23:11] VITALS: BP 132/74
[2021-06-03 03:01] LABS: HEMATOCRIT 23.6 % (37.0-47.0); HEMOGLOBIN 7.7 gm/dL (12.0-15.0); MCH 29.5 pg (26.0-34.0); MCHC 32.7 g/dL (28.0-37.0); MCV 90.2 fL (80.0-100.0); RBC 2.62 mil/uL (4.20-5.00); RDW 16.1 % (10.5-14.5); WBC 8.1 thou/uL (4.0-11.0)
[2021-06-03 03:05] LABS: CALCIUM 7.5 mg/dL (8.5-10.1); CREATININE 0.9 mg/dL (0.6-1.0)
[2021-06-03 03:16] LABS: POTASSIUM 5.3 mmol/L (3.5-5.1)
[2021-06-03 04:46] VITALS: BP 132/75
--- NOTE | 2021-06-03 07:13 | EKG ---
[address] [place] [address] ELECTROCARDIOGRAM REPORT Name: PETER PICKETT Room #: 457- ADM IN M.R.#: [id number] Admission: 06/01/21 Attend Phys: Jose Maravilla MD Discharge: Date of : 43 Report #: [id number] [facility] Test Date: 2021-06-02 Test Time: 01:35:30 Pat Name: PETER PICKETT Department: Room: [facility] Gender: F Slat Basket Maker: HERO : 1945 Requested By: Zenobia Samson Order Number: [id number] MD: Jey Grossman Measurements Intervals [place] Rate: 95 P: 0 MI: 176 QRS: -26 QRSD: 82 T: 261 QT: 472 QTc: 594 Interpretive Statements AFIB No further rhythm analysis attempted due to paced rhythm Borderline left axis deviation Low voltage, extremity and precordial leads Nonspecific T abnrm, anterolateral leads Prolonged QT interval Compared to ECG 05/10/2021 14:20:58 Atrial fibrillation no longer present Electronically Signed On 06-03-2021 7:13:30 WINDMILL MECHANIC by Jey Grossman [email or web address] <ELECTRONICALLY SIGNED> By: Jey Grossman MD, FACC 06/03/21 0713 4 4 Jey Grossman MD, [facility] /EPI
[2021-06-03 07:27] VITALS: BP 123/78
[2021-06-03 14:11] VITALS: BP 120/76
[2021-06-03 14:12] VITALS: BP 126/76; BP 130/79
--- NOTE | 2021-06-03 14:17 | NUR ---
OSTOMY FOLLOW UP; THE PERISTOMAL SKIN REMAINS ANGRY RED BUT LESS PAINFUL. THE SEAL DID NOT REMAIN PATIENT. I WILL TRY A CONVEX'D OSTOMY DEVICE. THE PATIENT IS UP IN A CHAIR OR IN A SEATED POSITION IN BED WHICH PUTS MORE PRESSURE IN THAT AREA. DISCUSSED WITH BYRON
--- NOTE | 2021-06-03 14:39 | NUR ---
PT RESTING COMFORTABLY. PT AFEBRILE, ADEQUATE UOP, NO BM, FAIR APPETITE, ADEQUATE OUTPUT FROM OSTOMY. PROVIDER GAVE THE OKAY TO GIVE ORAL CONTRAST INSTEAD ON IV, FOR ABD/PELVIS CT TODAY. 1 UNIT PRBC BEING INFUSED NOW, PER [facility] PROTOCAL. WOUND CARE TEAM CLEANED AND DRESSED ABDOMINAL WOUND. PT AND FAMILY HAVE BEEN THOUROUGHLY UPDATED AND EDUCATED ON PT CONDITION AND POC. PT SLOWLY PROGRESSING TOWARDS POC.
[2021-06-03 16:45] VITALS: BP 134/79
[2021-06-03 19:48] VITALS: BP 137/80
[2021-06-04 03:54] VITALS: BP 155/85
--- NOTE | 2021-06-04 05:16 | NUR ---
Pt. rested quietly at short intervals during the night. She has been having some wheezing in her chest and Aida BARCLAY was called. New order for Albuterol breathing treatments (see cpoe). Pt. continues to have wheezes this am and voices some shortness of breath. O2 saturation is 94% on room air. Albuterol breathing treatment given with little relief. Respirations at 24. Aida BARCLAY called and notified. New orders to hold ivf and get chest x-ray. Bed alarm is on.
[2021-06-04 06:42] LABS: HEMATOCRIT 28.8 % (37.0-47.0); HEMOGLOBIN 9.4 gm/dL (12.0-15.0); MCH 29.3 pg (26.0-34.0); MCHC 32.7 g/dL (28.0-37.0); MCV 89.5 fL (80.0-100.0); RBC 3.22 mil/uL (4.20-5.00); WBC 13.8 thou/uL (4.0-11.0)
[2021-06-04 07:00] LABS: CALCIUM 7.5 mg/dL (8.5-10.1); CREATININE 1.2 mg/dL (0.6-1.0); POTASSIUM 4.9 mmol/L (3.5-5.1)
--- NOTE | 2021-06-04 10:43 | EKG ---
[place] [address] [facility] [place] [place] [address] ELECTROCARDIOGRAM REPORT Name: PETER PICKETT Room #: 457- ADM IN M.R.#: [id number] Admission: 06/01/21 Attend Phys: Jose Maravilla MD Discharge: Date of : 43 Report #: [id number] [facility] Test Date: 2021-06-04 Test Time: 09:07:12 Pat Name: PETER PICKETT Department: Room: [facility] Gender: F Crane Crew Supervisor: ARLENE : 1945 Requested By: Luis Fletcher Order Number: [id number] MD: Jey Grossman Measurements Intervals [place] Rate: 113 P: ID: QRS: -18 QRSD: 76 T: QT: 380 QTc: 521 Interpretive Statements Suspect AFIB/Flutter Borderline left axis deviation Low voltage, precordial leads Anteroseptal infarct, old Nonspecific T abnormalities, lateral leads Prolonged QT interval Compared to ECG 06/02/2021 01:35:30 T-wave abnormality now present Ventricular-paced complex(es) or rhythm no longer present Electronically Signed On 06-04-2021 10:42:52 ELECTROTYPE FINISHER by Jey Grossman [email or web address] <ELECTRONICALLY SIGNED> By: Jey Grossman MD, FACC 06/04/21 1042 6 09 Jey Grossman MD, FACC /EPI
[2021-06-04 20:35] VITALS: BP 99/52
[2021-06-05 04:23] VITALS: BP 98/51
--- NOTE | 2021-06-05 06:10 | NUR ---
ASSUMED PT CARE THIS PM.PT IS ALERT AD ORIENTED X4.PT IS ON 2L OF O2 VIA NC.PT HAS LABORED BREATH. PT HAS ILEOSTOMY WHICH WAS LEAKINMG; BAG WAS CHANGED. WOUND DRSG COMPLETED. BP MEDS WERE NOT GIVEN DUE TO LOW BP. PT HAS PHYLLIS PICC WITH SINGLE LUMEN. PT C/O PAIN WHICH WAS MANAGED BY PRN APIN MED. MEDS WERE GIVEN PER EMAR ORDERS. NO VISIBLE SIGN OF DISTRESS WAS NOTED. FALL PRECAUTION IN PLACE. WILL CONTINUE TO MONITOR.
[2021-06-05 08:10] VITALS: BP 150/81
[2021-06-05 08:50] LABS: HEMATOCRIT 29.5 % (37.0-47.0); HEMOGLOBIN 9.1 gm/dL (12.0-15.0); MCH 28.3 pg (26.0-34.0); MCHC 30.7 g/dL (28.0-37.0); MCV 92.1 fL (80.0-100.0); PLATELET COUNT 264 thou/uL (150-400); RBC 3.21 mil/uL (4.20-5.00); RDW 17.5 % (10.5-14.5); WBC 15.7 thou/uL (4.0-11.0)
[2021-06-05 09:06] LABS: CALCIUM 7.1 mg/dL (8.5-10.1); CREATININE 1.7 mg/dL (0.6-1.0); POTASSIUM 5.4 mmol/L (3.5-5.1)
--- NOTE | 2021-06-05 10:44 | NUR ---
WOUND CARE F/U; THE OSTOMY HAS REMAINED PATIENT AND THE PERISTOMAL IS STABLE AND DRY. LEFT LATERAL ABD FROM THE OSTOMY IS AN ABDOMINAL INSCISON THAT HAS DEHISCED BUT IS MUCH MOR STABLE TODAY. SMALL TO MODERATE SEROSANGINOUS DRAINAGE IS PRESENT WITH NO ODOR. THE ABDOMENAL WOUND MEANSURES 2 X 1.5 X 5.5 WHICH WAS PACKED WITH AQUACEL AG. COVERED WIOTH A SMALL BORDERED FOAM. NO CHANGES ARE NEEDED AT THIS TIME. DISCUSSED WITH BYRON.
[2021-06-05 10:49] LABS: ABSOLUTE NEUTROPHILS 13.7 thou/uL (1.4-8.2); PLATELET ESTIMATE NORMAL
[2021-06-05 16:04] VITALS: BP 89/41
[2021-06-05 20:25] VITALS: BP 105/66
[2021-06-06 00:49] VITALS: BP 98/60
--- NOTE | 2021-06-06 03:50 | NUR ---
ASSUMED PT CARE THIS PM. PT IS ALERT AND ORIENTED XE. PT IS ON 2L OF O2 VIA NC. PT HAS ILEOSTOMY TO THE RUQ WITH DARK GREEN STOOL. PT HAS A SINGLE LUMEN PICC TO THE PHYLLIS. DRSG CHANGE WAS DONE AND WAS WELL TOLEARTED BY PT. MEDS WERE GIVEN PER EMAR ORDERS. PT DID NOT VERBALIZE ANY CONCERNS. FALL PRECAUTIONS IN PLACE. WILL CONTINUE TO MONITOR.
[2021-06-06 04:59] VITALS: BP 113/63
[2021-06-06 05:50] LABS: ABSOLUTE NEUTROPHILS 12.6 thou/uL (1.4-8.2); BASOPHILS 0.3 % (0.0-2.0); EOSINOPHILS 0.1 % (0.0-3.0); HEMATOCRIT 25.5 % (37.0-47.0); HEMOGLOBIN 8.2 gm/dL (12.0-15.0); LYMPHOCYTES 4.2 % (24.0-44.0); MCH 28.6 pg (26.0-34.0); MCHC 32.2 g/dL (28.0-37.0); MCV 88.6 fL (80.0-100.0); MONOCYTES 8.7 % (1.0-8.0); PLATELET COUNT 230 thou/uL (150-400); POLYS 86.7 % (36.0-66.0); RBC 2.88 mil/uL (4.20-5.00); RDW 16.6 % (10.5-14.5); WBC 14.5 thou/uL (4.0-11.0)
[2021-06-06 06:20] LABS: CALCIUM 6.6 mg/dL (8.5-10.1); CREATININE 2.2 mg/dL (0.6-1.0); POTASSIUM 4.7 mmol/L (3.5-5.1)
[2021-06-06 07:00] VITALS: BP 113/64
--- NOTE | 2021-06-06 09:01 | NUR ---
Pt eating poorly and not able to meet requirements to support wound healing. Recommend change IVF to clinimix PPN at 80ml/hr for added nutrition.
--- NOTE | 2021-06-06 13:36 | NUR ---
OSTOMY FOLLOW UP: THE PATIENTS PERISTOMAL SKIN IS WNL. THE SJIN IS HEALTHY WITH NO ESCORIATION. NO NEED TO CHANGE THE DEVICE TODAY, I WILL CHANGE AND REASSESS ON WEDNESDAY THE .
--- NOTE | 2021-06-06 16:37 | NUR ---
CARE TEAM INDICATED THAT PT IS PROGRESSING TOWARD GOAL OF DISCHARGE. THERE HAD BEEN SOME MENTION OF 5N ASSESSING FOR POSSIBLE ADMISSION ONCE MEDICALLY STABLE. NO DC ANTICPATED OVER THE WEEKEND. CM FOLLOWING REGARDING DC PLANNING.
[2021-06-06 20:10] VITALS: BP 131/79
[2021-06-06 21:23] VITALS: BP 124/71
[2021-06-07 00:18] VITALS: BP 132/77
--- NOTE | 2021-06-07 04:20 | NUR ---
assumed care approx 1900 evening 06/06. pt lying in bed with head of bed elevated resting and stated she was feeling better and less lethargic. pt with ileostomy in place and intact until approx 0300 when bag began leaking. changed bag and also changed dressing to abd wound. pt tolerated well. pt with some wheezing and resp paged and pt recd resp treatment. pt appears to be sleeping at presemt. bed alarm on and call light in reach. will continue to monitor.
[2021-06-07 06:01] VITALS: BP 109/62
[2021-06-07 06:12] LABS: ABSOLUTE NEUTROPHILS 9.3 thou/uL (1.4-8.2); BASOPHILS 0.3 % (0.0-2.0); EOSINOPHILS 0.5 % (0.0-3.0); HEMATOCRIT 26.7 % (37.0-47.0); HEMOGLOBIN 8.4 gm/dL (12.0-15.0); LYMPHOCYTES 4.2 % (24.0-44.0); MCH 28.3 pg (26.0-34.0); MCHC 31.4 g/dL (28.0-37.0); MONOCYTES 12.5 % (1.0-8.0); PLATELET COUNT 224 thou/uL (150-400); POLYS 82.5 % (36.0-66.0); RBC 2.97 mil/uL (4.20-5.00); WBC 11.2 thou/uL (4.0-11.0)
[2021-06-07 06:36] LABS: ALBUMIN 1.7 g/dL (3.4-5.0); CALCIUM 6.5 mg/dL (8.5-10.1); CREATININE 1.9 mg/dL (0.6-1.0); PHOSPHORUS 2.2 mg/dL (2.5-4.9)
[2021-06-07 08:12] VITALS: BP 117/73
--- NOTE | 2021-06-07 18:15 | NUR ---
Pt is A & O x4. Pt VS stable. Pt received medications as ordered and also received PRN medications as requested by pt. Pt is X 1 assist with ADLs and cares. Pt ostomy changed this shift. Pt is sinus tach on tele. Pt remains in contact precautions. Pt is able to make needs known
[2021-06-08 00:20] VITALS: BP 116/66
--- NOTE | 2021-06-08 03:57 | NUR ---
PT IS A/O X4 AND IS UP WITH ASSITANCE. ROOM AIR. VSS. SOB WITH EXERTION. VOIDS PER BEDPAN AND HAS A COLOSTOMY DRAINING APPROPRIATELY. FALL PRECUATIONS IN PLACE, CALL LIGHT IS WITHIN REACH. MEDICATION GIVEN WHOLE WITH WATER. PT IS PROGRESSING TOWARDS PLAN OF CARE DC GOALS.
[2021-06-08 04:43] VITALS: BP 113/70
[2021-06-08 06:02] LABS: HEMATOCRIT 27.6 % (37.0-47.0); HEMOGLOBIN 9.1 gm/dL (12.0-15.0); MCH 29.8 pg (26.0-34.0); MCV 90.3 fL (80.0-100.0); RBC 3.06 mil/uL (4.20-5.00); RDW 16.6 % (10.5-14.5); WBC 9.7 thou/uL (4.0-11.0)
[2021-06-08 06:06] LABS: ALBUMIN 1.7 g/dL (3.4-5.0); CALCIUM 6.4 mg/dL (8.5-10.1); CREATININE 1.7 mg/dL (0.6-1.0); PHOSPHORUS 2.7 mg/dL (2.5-4.9); POTASSIUM 4.2 mmol/L (3.5-5.1)
[2021-06-08 06:34] LABS: PLATELET COUNT 148 thou/uL (150-400)
[2021-06-08 07:55] VITALS: BP 116/69
--- NOTE | 2021-06-08 10:02 | NUR ---
ASSUMED PT CARE THIS AM. PT IS ON CONTACT ISOLATION FUE TO VRE. PT HAS IV SITE ON PHYLLIS SINGLE LUMEN PICC LINE. PT HAS COLOSTOMY ON R ABDOMEN AND CHANGED COLOSTOMY BAG THIS AM DUE TO LEAKAGE. CHANGED WOUND DRESSING ON L LATERAL ABDOMENT WITH NS, PACK AQUACEL AG, ABD AND TAPE AND PERISTOMAL AREAS WITH NS AND BARRIER CREAM. PLACED 2L NC 02 FOR SOB AND COMFORT PER PT REQUEST. PT TOLERATED DIET WELL AND MEDICATION. WILL CONTINUE TO MONITOR PT. FOLLOW POC.
[2021-06-08 10:09] LABS: ABSOLUTE NEUTROPHILS 7.4 thou/uL (1.4-8.2); METAMYELOCYTES 1 %; MYELOCYTES 4 %; NUCLEATED RBCS 1 /100WBC
[2021-06-08 10:10] LABS: ANISOCYTOSIS 1+; OVALOCYTES FEW; POIKILOCYTOSIS 1+; SCHISTOCYTES FEW
[2021-06-08 19:08] VITALS: BP 105/54
[2021-06-09 00:22] VITALS: BP 105/66
--- NOTE | 2021-06-09 03:26 | NUR ---
ASSUMED CARE AT 1900, PT REMAINS LAYING IN BED, COMPLIANT TO TX, NO ADVERSE REACTION NOTED, MILLER PATENT, REMAINS ON ISOLATION, REPORTS NO PAIN, REPORTS STOMACH DISCOMFORT REQUESTED FOR ZOFRAN, ADMINISTERED, COLOSTOMY CHANGED/DRAINED NEEDED. WILL CONTINUE TO MONITOR.
[2021-06-09 04:02] VITALS: BP 106/71
[2021-06-09 07:22] LABS: ALBUMIN 1.7 g/dL (3.4-5.0); CALCIUM 6.4 mg/dL (8.5-10.1); CREATININE 1.5 mg/dL (0.6-1.0); PHOSPHORUS 2.5 mg/dL (2.6-4.7); POTASSIUM 3.4 mmol/L (3.5-5.1)
[2021-06-09 07:40] VITALS: BP 121/78
--- NOTE | 2021-06-09 10:51 | NUR ---
WOUND CARE F/U; THE PATIENTS ABDOMENAL WOUND WAS ASSESSED. THE WOUND HAS NECROSIS IN THE WOUND BED AND UNSTABLE ESCAR TO THE ABDOMEN SUPERIOR TO THE WOUND. THIS WOUND IS NON ODOROUS WHICH WE ARE CURRENTLY PAINTING WITH BETADINE AND THE MEASUREMENTS REMAIN THE SAME: CURRENTLY PACKING WITH AQUACEL AG,SECURED WITH ABD/TAPE. THE OSTOMY WAS FOUND LEAKING TODAY. THERE IS MILD TO MODERATE ESCORIATION TO THE PERISTOMAL AREA DISTALLY. I APPLIES BARRIER SWABS AND MARATHON TO THIS AREA. THE DRAINAGE IS GOUND UP SPINACH LOOKING AND IS LIQIDOUS. CONTINUE CURRENT TREATMENT.
[2021-06-09 11:10] VITALS: BP 96/56
--- NOTE | 2021-06-09 13:50 | NUR ---
ASSUMED PT CARE THIS AM. PT A&OX4, ABLE TO MAKE NEEDS KNOWN. PATIENT REPORTING NO PAIN. PATIENT HAS A DRESSING TO ABDOMEN, C/D/I. FOLOSTOMY TO ABDOMEN DRAINING GREEN STOOL. MILLER CATHETER DRAINING DARK YELLOW URINE. PATIENT IS ON ROOM AIR. PATIENT IS UP WITH ASSIST. FALL PRECAUTIONS ARE IN PLACE, CALL LIGHT WITHIN REACH.
[2021-06-09 15:25] VITALS: BP 91/65
--- NOTE | 2021-06-09 16:06 | NUR ---
PT INDICATED THAT PT HAD DONE FAIRLY WELL WITH HIM THIS AM. CM MET WITH PT THIS AFTERNOON AND NURSE AND PT INDICATED SHE DIDN'T DO WELL THIS AFTERNOON. PT WAS RECEPTIVE TO BEING EVALUATED FOR 5N. CM NOTIFIE 5N LIAISON AND PHYSICIAN. CM PROVIDED PT'S SON WITH UPDATE. CM FOLLOWING REGARDING DC PLANNING.
[2021-06-09 20:49] VITALS: BP 91/40
--- NOTE | 2021-06-10 05:32 | NUR ---
ASSUMED PT CARE THIS PM.PT IS ALERT AN ORIENTED X4. PT HAS ILEOSTOMY AND MILLER IN PLACE. PT HAS ON RA. WOUND DRSG DONE AND WAS WELL TOLERATED BY PT. PT'S BP WAS LOW AND NOC ROLL UP GUIDER OPERATOR WAS INFORMED. AN ORDER WAS FOR NS 500ML BOLUS WAS PLACED. PT IS ON RA. MEDS WERE GIVEN PER EMAR ORDERS. WILL CONTINUE OT MONITOR.
[2021-06-10 06:44] LABS: ALBUMIN 1.7 g/dL (3.4-5.0); CALCIUM 6.4 mg/dL (8.5-10.1); CREATININE 2.2 mg/dL (0.6-1.0); PHOSPHORUS 5.9 mg/dL (2.6-4.7)
[2021-06-10 06:50] LABS: POTASSIUM 5.8 mmol/L (3.5-5.1)
--- NOTE | 2021-06-10 08:20 | EKG ---
[place] [address] [address] [facility] [employer] [place] [address] ELECTROCARDIOGRAM REPORT Name: PETER PICKETT Room #: 457- ADM IN M.R.#: [id number] Admission: 06/01/21 Attend Phys: Jose Maravilla MD Discharge: Date of : 41 Report #: [id number] [facility] Test Date: 2021-06-09 Test Time: 20:10:20 Pat Name: PETER PICKETT Department: Room: [facility] Gender: F Mercury Washer: ELICEO : 1945 Requested By: Trino Collazo Order Number: [id number] MD: Luis Fletcher Measurements Intervals [place] Rate: 82 P: 0 AL: 188 QRS: -52 QRSD: 90 T: QT: 571 QTc: 667 Interpretive Statements Atrial fibrillation Left anterior fascicular block Poor R wave progression Prolonged QT interval Compared to ECG 06/04/2021 09:07:12 No significant change was found Electronically Signed On 06-10-2021 8:19:59 TAX MANAGER by Luis Fletcher [email or web address] <ELECTRONICALLY SIGNED> By: Luis Fletcher MD, [facility] 06/10/21 0819 09 09 Luis Fletcher MD, [facility] /EPI
--- NOTE | 2021-06-10 12:57 | NUR ---
WOUND CARE F/U; THE ABDOMEN WOUND WAS ASSESSED TODAY. THE ABDOMENAL WOUND HAS AN AREA OF NECROSIS SUPERIORILY. THESE AREA WILL BE DEBRIDED TOMORROW. THE ABDOMINAL WOUND IS STABLE AT THIS TIME, CURRENTLY PACKING WITH AQUACEL AG. NO ODOR OR ANY OTHER S/S OF INFECTION. THE OSTOMY WAS EMPTIED AND ASSESSED. 100 ML OF WATERY, GREEN DRAINAGE THAT HAD NON DIGESTED MEDICATIONS IN IT. THE PERISTOMAL SKIN IS WNL. CURRENLY USING A #8531 QASIM FLEXEND POUCH THAT WE HAVE BEEN SUCCCESSFUL WITH. DISCUSSED WITH RN.
--- NOTE | 2021-06-10 16:55 | NUR ---
CM MET WITH PT, SON, AND SPOUSE AT BEDSIDE THIS DAY. THEY INDICATED THAT THEY WERE INTERESTED INPT GOING TO 5N ONCE MEDICALLY STABLE. CM INDICATED THAT INSTRUCTOR BALLROOM DANCING TO ASSESS BUT THAT PT LOOKS SOMEWHAT HIGH LEVEL. CHOLO MET WITH THEM WELL. HAD OT PUSH PT AND PT DO STEPS. 5N INDICATED THAT THEY ARE ABLE TO ACCEPT PT ONCE MEDICALLY STABLE. CM NOTIFIED PT AND SPOUSE. CM FOLLOWING REGARDING DC PLANNING.
--- NOTE | 2021-06-10 18:59 | NUR ---
ASSUMED CARE OF PT AT 0700. PT A&OX4. PT BP LOW . BOLUS X2 GIVEN. PT C/O CHEST PAIN AT APPROX 1810, DR. LEWIS AWARE. MORPHINE GIVEN ORDERED, WITH STATED OK RELIEF. PT LEFT ARM EDEMATOUS AND WEEPING. PT TRIED TO WORK WITH PT/OT TODAY PT WAS NOT ABLE TO WORK WITH THERAPIES D/T LOW BP. ILESOTOMY PUT OUT 250ML TODAY. C-DIFF SAMPLE SENT DOWN. MILLER CATH ONLY PUT OUT 50ML. DR. LEWIS AWARE. BP MEDS NOT GIVEN D/T LOW BP. WILL CONTINUE TO MONITOR.
[2021-06-10 19:21] LABS: CALCIUM 6.3 mg/dL (8.5-10.1); CREATININE 2.6 mg/dL (0.6-1.0); POTASSIUM 5.6 mmol/L (3.5-5.1)
[2021-06-10 20:09] VITALS: BP 74/38
[2021-06-10 21:48] VITALS: BP 99/55
[2021-06-11] VITALS (92 sets, daily range): BP systolic 60–153; BP diastolic 12–75
[2021-06-11 02:16] LABS: BE(vivo) -19.1 mmol/L (-2 to +3); HCO3 11.7 mmol/L (22.0-26.0); PCO2 50.9 mmHg (35.0-45.0); PO2 92.4 mmHg (80.0-100.0); sO2 91.6 % (92.0-98.0)
--- NOTE | 2021-06-11 02:47 | NUR ---
PT TRANSFERRED TO ICU AT 0120 POST CODE. TOP DYEING MACHINE LOADER AT BEDSIDE. WILL FOLLOW POC
--- NOTE | 2021-06-11 03:06 | NUR ---
DR NEWELL AT BEDSIDE AT 0245. FEMORAL CENTRAL LINE PLACED.
[2021-06-11 03:43] LABS: BE(vivo) -12.3 mmol/L (-2 to +3); HCO3 15.6 mmol/L (22.0-26.0); PCO2 44.8 mmHg (35.0-45.0); PO2 158.5 mmHg (80.0-100.0); pH 7.161 (7.360-7.450); sO2 98.5 % (92.0-98.0)
[2021-06-11 04:11] LABS: ALBUMIN 1.9 g/dL (3.4-5.0); CALCIUM 6.9 mg/dL (8.5-10.1); CREATININE 2.6 mg/dL (0.6-1.0); TOTAL BILIRUBIN 1.4 mg/dL (0.2-1.0); TOTAL PROTEIN 4.6 g/dL (6.4-8.2)
[2021-06-11 04:23] LABS: INR 2.87; PROTIME 29.8 Seconds (10.5-12.1)
[2021-06-11 04:31] LABS: POTASSIUM 6.6 mmol/L (3.5-5.1)
[2021-06-11 05:02] LABS: HEMOGLOBIN 8.3 gm/dL (12.0-15.0)
[2021-06-11 05:08] LABS: HEMATOCRIT 26.3 % (37.0-47.0); MCH 29.6 pg (26.0-34.0); MCHC 31.6 g/dL (28.0-37.0); MCV 93.9 fL (80.0-100.0); RBC 2.8 mil/uL (4.20-5.00); RDW 17.2 % (10.5-14.5); WBC 18.3 thou/uL (4.0-11.0)
--- NOTE | 2021-06-11 06:46 | NUR ---
PT WAS TRANSFERRED TO UNIT WITH PHONE, AND PHONE DEPUTY EDITOR IN CHIEF
--- NOTE | 2021-06-11 07:31 | NUR ---
CODE BLUE CALLED LAST NIGHT, PATIENT NOW INTUBATED AND SEDATED IN ICU. WILL NEED NEW ORDERS ONCE PATIENT IS ABLE TO PARTICIPATE.
--- NOTE | 2021-06-11 07:50 | NUR ---
Pt TRANSFERRED TO ICU POST CODE. WILL PLACE ON HOLD AND AWAIT NEW ORDERS WHEN APPROPRIATE
--- NOTE | 2021-06-11 08:45 | NUR ---
ASSUMED CARE OF PT AT 0700 SPOKE TO PT SON AT 0845 AND UPDATED PER POC, HE INDICATED HE WILL BE IN TO VISIT AROUND LUNCH TIME
--- NOTE | 2021-06-11 08:58 | NUR ---
DR CARY AT BEDSIDE AT 0700. ORDERS GIVEN. WILL FOLLOW POC.
--- NOTE | 2021-06-11 09:01 | EKG ---
[place] [address] [facility] [place] [address] ELECTROCARDIOGRAM REPORT Name: PETER PICKETT Room #: 246-P ADM IN M.R.#: [id number] Admission: 06/01/21 Attend Phys: Jose Maravilla MD Discharge: Date of : 41 Report #: [id number] [facility] Test Date: 2021-06-11 Test Time: 08:12:08 Pat Name: PETER PICKETT Department: Room: 246 P Gender: F Copra Processor: PETER : 1945 Requested By: Luis Fletcher Order Number: [id number] MD: Luis Fletcher Measurements Intervals [place] Rate: 82 P: TX: 233 QRS: -28 QRSD: 124 T: 205 QT: 459 QTc: 536 Interpretive Statements Sinus rhythm with atrial pacing Prolonged TX interval Poor R wave progression Compared to ECG 06/09/2021 20:10:20 Sinus rhythm with atrial pacing has replaced atrial fibrillation Electronically Signed On 06-11-2021 9:01:13 MICA LAMINATING MACHINE FEEDER by Luis Fletcher [email or web address] <ELECTRONICALLY SIGNED> By: Luis lFetcher MD, [facility] 06/11/21 0901 1 1 Luis Fletcher MD, [facility] /EPI
[2021-06-11 14:30] LABS: CALCIUM 6.2 mg/dL (8.5-10.1); POTASSIUM 5.2 mmol/L (3.5-5.1)
[2021-06-11 14:36] LABS: BE(vivo) -20.2 mmol/L (-2 to +3); HCO3 10.8 mmol/L (22.0-26.0); PCO2 47.9 mmHg (35.0-45.0); sO2 48.4 % (92.0-98.0)
[2021-06-11 14:37] LABS: PO2 39.8 mmHg (80.0-100.0); pH 6.969 (7.360-7.450)
--- NOTE | 2021-06-11 15:49 | NUR ---
VASCULAR ACCESS CONSULTED FOR IJ PLACMENT. 6 FR TRIPLE LUMEN RIGHT IJ PLACED WITHOUT DIFFICULTY. CONSENT SIGNED AND TIMEOUT PREFORMED PRIOR TO START WITH LALITO RN. XRAY CONFIRMATION OF TIP. OKAY TO USE IJ. POSITIVE BILATERAL LUNG SLIDE. INTERNAL LENGTH 16CM AND EXTERNAL LENGTH 4CM.
[2021-06-12] VITALS (13 sets, daily range): BP systolic 62–73; BP diastolic 32–42
--- NOTE | 2021-06-12 03:31 | NUR ---
ASSUMED CARE OF PT AT [address]. CALLED DR. NEWELL AT 2252 TO INFORM HIM OF DECLINING PT STATUS AND UPDATE ON CODE STATUS. THIS RN CALLED PT SON AT 2306 AND AT 2314 TO INFORM THEM OF PT STATUS. TUBE LASER OPERATOR APPROVED FAMILY TO COME VISIT.
--- NOTE | 2021-06-12 03:40 | NUR ---
FAMILY AT BEDSIDE AT 0230. MADE DECISION TO GO COMFORT CARE. DR NEWELL CALLED AT 0257. ORDERS GIVEN. WILL CONTINUE TO FOLLOW POC.
== END 2021-06-12 04:29 | DRG 862 ==
LOC: ER 23:25 → EROBS 06-01 04:36 → 4W 06-01 04:36 → ICU 06-11 01:38
PROVIDERS: Emergency Medicine; Hospitalist; Internal Medicine; Internal Medicine Nephrology; Internal Medicine Pulmonary Disease; Nurse Practitioner Family; ADMIT Internal Medicine; ATTEND Internal Medicine
PROC: 30233N1 Transfusion of Nonautologous Red Blood Cells into Peripheral Vein, Percutaneous Approach (ICD-10-PCS; principal; 2021-06-03)
PROC: 0BH17EZ Insertion of Endotracheal Airway into Trachea, Via Natural or Artificial Opening (ICD-10-PCS; 2021-06-11)
PROC: 5A1945Z Respiratory Ventilation, 24-96 Consecutive Hours (ICD-10-PCS; 2021-06-11)
PROC: 5A12012 Performance of Cardiac Output, Single, Manual (ICD-10-PCS; 2021-06-11)
PROC: 02HV33Z Insertion of Infusion Device into Superior Vena Cava, Percutaneous Approach (ICD-10-PCS; 2021-06-11)
DX: T81.41XA Infection following a procedure, superficial incisional surgical site, initial encounter (principal); E43 Unspecified severe protein-calorie malnutrition; J96.01 Acute respiratory failure with hypoxia; J18.9 Pneumonia, unspecified organism; K72.00 Acute and subacute hepatic failure without coma; K65.1 Peritoneal abscess; N17.9 Acute kidney failure, unspecified; D84.9 Immunodeficiency, unspecified; I48.19 Other persistent atrial fibrillation; R78.81 Bacteremia; K94.03 Colostomy malfunction; D68.59 Other primary thrombophilia; I47.2 Ventricular tachycardia; I50.30 Unspecified diastolic (congestive) heart failure; I46.9 Cardiac arrest, cause unspecified; E87.6 Hypokalemia; R57.1 Hypovolemic shock; E83.42 Hypomagnesemia; E87.5 Hyperkalemia; R19.5 Other fecal abnormalities; I95.1 Orthostatic hypotension; I27.20 Pulmonary hypertension, unspecified; D64.9 Anemia, unspecified; M06.9 Rheumatoid arthritis, unspecified; F41.9 Anxiety disorder, unspecified; I11.0 Hypertensive heart disease with heart failure; F32.A Depression, unspecified; E78.5 Hyperlipidemia, unspecified; L30.9 Dermatitis, unspecified; J43.9 Emphysema, unspecified; B96.4 Proteus (mirabilis) (morganii) as the cause of diseases classified elsewhere; E03.9 Hypothyroidism, unspecified; K21.9 Gastro-esophageal reflux disease without esophagitis; I25.10 Atherosclerotic heart disease of native coronary artery without angina pectoris; E11.649 Type 2 diabetes mellitus with hypoglycemia without coma; B95.2 Enterococcus as the cause of diseases classified elsewhere; B37.9 Candidiasis, unspecified; G89.29 Other chronic pain; Z20.822 Contact with and (suspected) exposure to COVID-19; Z90.49 Acquired absence of other specified parts of digestive tract; Z90.710 Acquired absence of both cervix and uterus; Z95.5 Presence of coronary angioplasty implant and graft; Z95.810 Presence of automatic (implantable) cardiac defibrillator; Z79.899 Other long term (current) drug therapy; Z79.01 Long term (current) use of anticoagulants; Z88.5 Allergy status to narcotic agent; Z88.0 Allergy status to penicillin; Z88.2 Allergy status to sulfonamides; Z88.8 Allergy status to other drugs, medicaments and biological substances; Z88.1 Allergy status to other antibiotic agents; Z91.041 Radiographic dye allergy status; Z87.891 Personal history of nicotine dependence; Y83.8 Other surgical procedures as the cause of abnormal reaction of the patient, or of later complication, without mention of misadventure at the time of the procedure; Y83.2 Surgical operation with anastomosis, bypass or graft as the cause of abnormal reaction of the patient, or of later complication, without mention of misadventure at the time of the procedure; Y92.89 Other specified places as the place of occurrence of the external cause; Z83.3 Family history of diabetes mellitus; Z82.49 Family history of ischemic heart disease and other diseases of the circulatory system; Z68.27 Body mass index [BMI] 27.0-27.9, adult
CPT/HCPCS: 10045; 10078; 65040